=== PATIENT | female | born 1930 | race Caucasian/White ===

== ENCOUNTER 2016-08-29 06:50 | Inpatient (IN) | payer MEDICARE ==
--- NOTE | 2016-08-21 12:06 | HP ---
HISTORY AND PHYSICAL: DATE OF SURGERY: 08/29/16 DATE OF OFFICE VISIT: 08/21/16 SURGEON: Maddison Wells MD (DICTATED BY ANGEL GERMAIN) PROCEDURE: Right total knee arthroplasty. CHIEF COMPLAINT: Right knee pain. HISTORY OF PRESENT ILLNESS: Ms. Cook is an 86-year-old female with complaints of right knee pain secondary to advanced osteoarthritis. She has failed conservative management and has elected to proceed with a right total knee arthroplasty, which is scheduled for 08/29/[address] Wells. PAST MEDICAL HISTORY: 1. AFib. 2. Hypertension. 3. High cholesterol. 4. Mitral valve disorder, known depression, anxiety, melanoma, and vertigo. PAST SURGICAL HISTORY: 1. Hysterectomy. 2. Right knee arthroscopy. 3. Cataract removal. CURRENT MEDICATIONS: 1. Losartan-potassium 25 mg once a day. 2. Lipitor 10 mg q.h.s. 3. Warfarin 5 mg and 7.5 mg. 4. Potassium chloride 20 mEq 1 tab twice weekly. 5. Cinnamon 2000 mg once daily. 6. Fish oil 1200 mg once daily. 7. Vitamin B12 1000 mcg once daily. 8. Vitamin C 500 mg once a day. 9. Vitamin D3 1000 units once a day. 10. Amlodipine besylate 2.5 mg once a day. 11. Flaxseed oil 1000 mg once a day. ALLERGIES: LISINOPRIL. FAMILY HISTORY: Heart disease and lung cancer. SOCIAL HISTORY: She is an 86-year-old female. She lives alone. She does not smoke or use drugs. She uses occasional alcohol. REVIEW OF SYSTEMS: A complete 14-point review of systems was reviewed with the patient and was all negative and noncontributory. PHYSICAL EXAMINATION GENERAL: She is well developed, well nourished. She in no acute distress. VITAL SIGNS: She stands 5 feet 2 inches tall, weighs 170 pounds, her blood pressure is 123/80, her heart rate is 81. HEENT: Normocephalic, atraumatic. NECK: Supple. No palpable lymph nodes. Trachea is midline. PULMONARY: Lungs are clear to auscultation bilaterally. CARDIO: Regular rate and rhythm. Strong S1, S2. ABDOMEN: Soft, nontender, nondistended. NEUROLOGIC: She is alert and oriented x3. Cranial nerves II through XII are intact. MUSCULOSKELETAL: Right lower extremity, the skin is intact. She has some tenderness over the medial lateral joint line of the right knee. There is mild joint effusion. Her lower extremity muscle group strengths are intact at 5/5. She has intact sensation. 2+ dorsalis pedis pulses. She walks with a slightly antalgic-type gait favoring her right leg. ASSESSMENT AND PLAN: Ms. Cook is an 86-year-old female with complaints of right knee pain secondary to advanced osteoarthritis. She has failed conservative management and has elected to proceed with a right total knee arthroplasty, which is scheduled for 08/29/[address] Wells discussed the risks and benefits of the surgery at today's visit and all of her questions were answered. Prescription for Percocet and Colace were sent to her pharmacy for postoperative pain control. She is currently on Coumadin for atrial fibrillation and was instructed by her primary care physician, Dr. Ventura to stop taking this medication 3 days prior to the surgery. She will restart that medicine the day of surgery for DVT prophylaxis. We will have her follow with Dr. Wells 2 weeks after the surgery. ANGEL GERMAIN [id number]/[facility] #: [id number] LAURITA
[~2016-08-29 06:50] MED LIST: Buffered Lidocaine 1% SYRIN* 5 ML/SYR SYRINGE INTRADERM ONE; NS 0.9% 1000 ML* 1,000 ML IV SCH
[2016-08-29] MEDS ORDERED: ceFAZolin 2 GM PREMIX(*) 2 GM/50 ML BAG IVPB ONE (07:23)
[2016-08-29] MEDS ORDERED: Buffered Lidocaine 1% SYRIN* 5 ML/SYR SYRINGE ONE (07:23)
[2016-08-29] MEDS ORDERED: Midazolam* 1 MG/ML 2 ML VIAL (2 MG) ONE ×2 (07:58→13:09)
[2016-08-29] MEDS ORDERED: Famotidine IV* 10 MG/ML 2 ML (20 mg) ONE (07:58)
[2016-08-29] MEDS ORDERED: fentaNYL* 50 MCG/ML 2 ML VIAL (100 MCG VIAL) ONE ×3 (08:50→11:47)
[2016-08-29] MEDS ORDERED: Rocuronium* 10 MG/ML VIAL ONE (09:08)
[2016-08-29] MEDS ORDERED: EPHEDrine (Pressors)* 50 MG/ML VIAL ONE (09:33)
[2016-08-29] MEDS ORDERED: Dexamethasone IV* 4 MG/ML 1 ML (4 MG) ONE ×2 (09:53→13:34)
[2016-08-29] MEDS ORDERED: Lidocaine 2% PF * 5 ML VIAL ONE (09:53)
[2016-08-29] MEDS ORDERED: Propofol* 10 MG/ML 20 ML BTL IV PUSH ONE (09:53)
[2016-08-29] MEDS ORDERED: ROPIVACAINE 5 MG/ML 30 ML BTL (0.5%) ONE (09:54)
[2016-08-29] MEDS ORDERED: PROCHLORPERAZINE INJ 5 MG/ML 2 ML VIAL IV PRN (10:01)
[2016-08-29] MEDS ORDERED: Ondansetron INJ* 2 MG/ML VIAL IV PRN (10:01)
[2016-08-29] MEDS ORDERED: Acetaminophen TAB* 325 MG PO PRN ×2 (10:01→10:27)
[2016-08-29] MEDS ORDERED: HYDROmorphone* 1 MG/ML 1 ML SYR IV PRN (10:01)
[2016-08-29] MEDS ORDERED: Bupivacaine 0.5% SDV PF* 30 ML VIAL ONE ×2 (10:21→12:14)
[2016-08-29] MEDS ORDERED: diPHENhydraMINE IV* 50 MG/ML 1 ml VIAL (BENADRYL) IV PRN (10:32)
[2016-08-29] MEDS ORDERED: Temazepam CAP* 15 MG PO PRN (10:32)
[2016-08-29] MEDS ORDERED: Bisacodyl SUPP* 10 MG SUPP PR PRN (10:32)
[2016-08-29] MEDS: fentaNYL* 50 MCG/ML 2 ML VIAL (100 MCG VIAL) IV PRN ×4 (11:48→12:23)
--- NOTE | 2016-08-29 12:23 | RAD ---
HISTORY: Postop COMPARISONS: May 08, 2016 VIEWS: 2, Frontal and lateral views of the right knee FINDINGS: BONE DENSITY: Normal. BONES: The patient is status post right knee arthroplasty. There is no hardware failure or osteolysis. JOINTS: The patient is status post right knee arthroplasty ALIGNMENT: There is no dislocation. SOFT TISSUES: Unremarkable. OTHER FINDINGS: None. IMPRESSION: STATUS POST RIGHT KNEE ARTHROPLASTY
[2016-08-29] MEDS ORDERED: Morphine PF AMP (0.5MG/ML)* 5 MG/10 ML AMP ONE (12:47)
[2016-08-29] MEDS ORDERED: Dexmedetomidine* 200 MCG/2 ML 2 ML VIAL ONE (13:10)
[2016-08-29] MEDS ORDERED: diPHENhydraMINE IV* 50 MG/ML 1 ml VIAL (BENADRYL) ONE (13:10)
[2016-08-29] MEDS: Ondansetron INJ* 2 MG/ML VIAL IV PRN ×2 (13:19→19:23)
[2016-08-29] MEDS: oxyCODONE/Acetamin 5/325 MG* TAB PO PRN ×2 (13:19→18:01)
[2016-08-29] MEDS: Morphine INJ* 2 MG/ML 1 ML SYRINGE IV PRN ×4 (13:20→22:54)
[2016-08-29] MEDS ORDERED: Ketorolac INJ* 30 MG/ML 1 ML VIAL ONE (13:34)
--- NOTE | 2016-08-29 14:56 | CONS ---
CONSULTATION REPORT: DATE OF CONSULT: 08/29/16 DATE OF ADMISSION: 08/29/16 PRIMARY CARE PROVIDER: Dr. Ventura. REQUESTING PHYSICIAN FOR CONSULTATION: Dr. Wells. MY ATTENDING PHYSICIAN WHILE IN THE HOSPITAL: Dr. Elisabeth Bingham (report being dictated by Vishal Arora NP). REASON FOR MEDICAL CONSULTATION: Medical management of comorbid medical problems. HISTORY OF PRESENT ILLNESS: Mrs. Cook is an 86-year-old female patient. She has a history of atrial fibrillation, hypertension, hyperlipidemia, depression, anxiety, melanoma, vertigo, and mitral regurge, and aortic stenosis. She comes in to the PACU today after an elective right total knee replacement. She had been seen in the outpatient setting with Dr. Wells. She had been having difficulty with right knee pain for some time failing conservative therapy. She opted for right knee replacement which she underwent today. She was evaluated in the PACU. She says that her pain is better controlled now after receiving some fentanyl. She denies having any chest pain or any shortness of breath. She states that she does not feel lightheaded. She denies having any abdominal pain. She denies having any nausea or any vomiting. She does the carry the history of AFib, hypertension, hyperlipidemia and depression, anxiety, vertigo, melanoma and mitral regurge, and aortic stenosis and because of this we were asked to evaluate in consult. PAST MEDICAL HISTORY: Significant for: 1. AFib. 2. Hypertension. 3. Hyperlipidemia. 4. Depression. 5. Anxiety. 6. Melanoma. 7. Vertigo. 8. Mitral resurge. 9. Aortic stenosis. PAST SURGICAL HISTORY: 1. She has had a right knee arthroscopy. 2. Cataract extraction. 3. Hysterectomy. 4. Now she is status post right total knee replacement. ALLERGY TO MEDICATION: Include LISINOPRIL. MEDICATIONS: Home meds according to the preoperative list includes: 1. Lipitor 10 mg daily. 2. Losartan 25 mg daily. 3. Warfarin 5 mg alternating with 7.5 mg every other day. 4. Refresh tears 2 drops both eyes b.i.d. 5. Tylenol 175 mg p.o in the morning as needed. 6. Potassium 20 mEq p.o. daily. 7. Fish oil 1200 mg p.o. daily. 8. Flaxseed oil 1000 p.o. daily. 9. Vitamin B12 1000 mcg daily. 10. Cinnamon 1000 mg p.o. daily. 11. D3 1000 units p.o. daily. 12. Vitamin C 500 mg daily. 13. Amlodipine 2.5 mg daily. FAMILY HISTORY: Her mother had a history of lung cancer. Father history is reviewed and noncontributory. SOCIAL HISTORY: She does not smoke. She does drink, it is very rarely. Surrogate decision maker is her daughter, Sharonda. REVIEW OF SYSTEMS: There is no documented fever. She denied having any significant weight change. There was no double vision. Denies having any ear discharge. No rhinorrhea. No sore throat. No thyroid enlargement. Denies having any chest pain. There is no orthopnea, no nocturnal dyspnea. Review of 14 systems completed was negative. PHYSICAL EXAM: Reveals vital signs, blood pressure 132/67 with a pulse of 76, respirations 16, O2 sat of 100%, temperature 97.2. General: At this time, Ms. Cook is an 86-year-old female patient. She appears to be well nourished, well developed. She is sitting in the postoperative bed. She does not appear to be in any acute distress. HEENT: Head is atraumatic, normocephalic. Eyes, her sclerae, on the right eye, she had what appeared to be, blood in the right sclera. She said she has had this for about a week and had ruptured about a week ago and she has been using drops for this. The left eye was anicteric and not pale. Neck is supple. Throat: Oral mucosa appeared to be dry. No oropharyngeal erythema. Heart: Sounds S1, S2. Regular rate and rhythm. She did have grade 2/3 murmur noted in the aortic listening area. No rubs or gallops. Lungs clear to auscultation bilaterally. No wheezes, rales or rhonchi. Abdomen: Soft, flat and nontender. Bowel sounds present. Extremities : Pulses were 2+ throughout. She can move the upper extremities with 5/5 strength. The right lower extremity in Mehdi bandage, distal CSM checks were intact. Neurologically, she is drowsy, but she awakens. She is alert. She is oriented x3. Tongue is midline. Sleeve Baster are equal. She had no gross focal deficits. Her skin is intact. She has an incision to the right knee, which is covered with an Mehdi dressing and a Hemovac intact. DIAGNOSTIC STUDIES/LAB DATA: Her labs, preoperative WBC is 6.0, RBC of 4.45, hemoglobin of 14.2, hematocrit of 43, platelet count 159. Her INR was 2.98. Sodium is 140, potassium 4.3, chloride 102, bicarb 28, BUN 14, creatinine 0.84. Her glucose was 89. Urine preop showed 3+ leukocyte esterase, 3+ wbc. Microbiology was negative for the urine preoperatively. She did have a preop stress echo which was read as normal stress echo. She did have a preop echo, which showed an EF of 55% to 60%. She had moderate aortic stenosis as well noted. She had a preoperative chest x-ray, which showed cardiomegaly, and there was a preoperative EKG as well, it did show AFib, there were no ST elevations or T-wave inversions noted. Old medical records reviewed. IMPRESSION: Mrs. Cook is an 86-year-old female patient coming into the surgical service today for an elective right total knee. We were asked to evaluate in consult. Recommendation at this point: ' 1. Right total knee replacements. Defer the management to Dr. Wells and her team. 2. Ruptured blood vessel of the right sclera. At this point, we will continue to monitor this. I will continue her eyedrops as prescribed and we will continue to follow. 3. Atrial fibrillation. Continue her anticoagulation and we will monitor. 4. Hypertension. We will hold the valsartan from the first 24 hours postoperatively. We can restart the amlodipine tomorrow and we will follow. 5. Hyperlipidemia. Continue statin therapy. 6. Depression and anxiety. Give supportive care. 7. History of melanoma. Follow with her primary. 8. Vertigo : Nonactive. She will involve the Primary. 9. History of mitral regurge and aortic stenosis can follow with her primary regional sales representative. We will continue to follow while here in the hospital. We will keep an eye on her hydration status. 10. DVTs prophylaxis. We will defer to the primary team. 11. Fluids, electrolytes and nutrition. She can have a regular diet. 12. Code status. Full code. TIME SPENT: Time spent in the consult 60 minutes; greater than half time spent [id number] obtaining my history and physical, other half time spent going over the plan of care with the patient and implementing plan of care. I discussed the plan of care with my attending, Dr. Bingham. She is in agreement. VISHAL ARORA NP CC: Dr. Ventura; Dr. Wells* [id number]/[facility] #: [id number] MTDKyle
[2016-08-29] MEDS ORDERED: HYDROmorphone* 1 MG/ML 1 ML SYR IV SLOW PU PRN (15:48)
[2016-08-29] MEDS ORDERED: Ketorolac INJ* 15 MG/ML 1 ML VIAL IV PUSH PRN (15:49)
[2016-08-29] MEDS ORDERED: Warfarin TAB(*) 6 MG PO ONE (17:00)
[2016-08-29] MEDS ORDERED: Warfarin TAB(*) 4 MG PO ONE (17:00)
[2016-08-29] MEDS: ceFAZolin VIAL(*) 1 GM in NS 0.9% 50 ML* 50 ML IVPB SCH (18:01)
[2016-08-29] MEDS: Ferrous Sulfate TAB* 325 MG PO SCH (20:29)
[2016-08-29] MEDS: Atorvastatin* 10 MG TAB PO SCH (20:29)
[2016-08-29] MEDS: Docusate CAP* 100 MG PO SCH (20:29)
[2016-08-29] MEDS ORDERED: Carboxymethylcellulose Sodium [Refresh Tears] BOTH EYES SCH (21:00)
[2016-08-29] MEDS ORDERED: CARBOXYMETHYLCELLULOSE SODIUM BOTH EYES SCH (21:00)
[2016-08-29] MEDS ORDERED: Enoxaparin(*) 30 MG/0.3 ML SYR SUBCUT SCH (21:00)
[2016-08-30] MEDS: ceFAZolin VIAL(*) 1 GM in NS 0.9% 50 ML* 50 ML IVPB SCH ×2 (01:38→08:32)
[2016-08-30 07:04] LABS: Hematocrit 34 % (35-47); Hemoglobin 11.1 g/dl (12.0-16.0)
[2016-08-30 07:25] LABS: BUN/Creatinine Ratio 25.3 (8-20); Calcium 8.7 mg/dL (8.6-10.3); EGFR African American 79.2 (>60); EGFR Non-African American 61.6 (>60); Potassium 4.3 mmol/L (3.5-5.0)
[2016-08-30] MEDS: oxyCODONE/Acetamin 5/325 MG* TAB PO PRN ×3 (07:55→20:32)
[2016-08-30] MEDS ORDERED: NS 0.9% 50 ML* 50 ML ONE (08:23)
[2016-08-30] MEDS: Docusate CAP* 100 MG PO SCH ×2 (08:28→20:33)
[2016-08-30] MEDS: Potassium Chlor TAB* 20 MEQ TAB.ER PO SCH (08:28)
[2016-08-30] MEDS: Cyanocobalamin TAB* 500 MCG PO SCH (08:28)
[2016-08-30] MEDS: Ascorbic Acid TAB* 500 MG PO SCH (08:28)
[2016-08-30] MEDS: Cholecalciferol TAB* 1000 UNITS PO SCH (08:28)
[2016-08-30] MEDS: Ferrous Sulfate TAB* 325 MG PO SCH ×2 (08:28→20:33)
[2016-08-30] MEDS: Vitamin THERAPEUTIC TAB PO SCH (08:28)
[2016-08-30] MEDS: amLODIPine TAB* 5 MG PO SCH (08:28)
[2016-08-30] MEDS: FATTY ACIDS PO SCH (08:33)
[2016-08-30] MEDS: OMEGA PO SCH (08:33)
[2016-08-30] MEDS ORDERED: Losartan TAB* 25 MG PO SCH (09:00)
[2016-08-30] MEDS ORDERED: Enoxaparin(*) 30 MG/0.3 ML SYR SUBCUT SCH (09:00)
[2016-08-30] MEDS: Carboxymethylcellulos 1% OPTH* 1 DROP AMP BOTH EYES SCH ×2 (09:50→20:33)
[2016-08-30] MEDS: Ondansetron INJ* 2 MG/ML VIAL IV PRN (10:03)
--- NOTE | 2016-08-30 10:18 | PN ---
Progress Note - Progress Note SOAP: Subjective: []Patient seen OOB in chair. Vomited this am after getting up with PT from bed to chair. Continues to feel dizzy this am. She does have a history of vertigo. Pain fairly well managed. Receiving Zofran. Objective: [] Vital Signs Temp 97.8 F 08/30/16 07:32 Pulse 89 08/30/16 07:32 Resp 16 08/30/16 08:00 BP 116/71 08/30/16 07:32 Pulse Ox 94 08/30/16 07:32 Intake & Output 08/29/16 08/30/16 08/30/16 18:59 06:59 18:59 Intake Total 1160 1922 Output Total 30 525 Balance 1130 1397 Weight 166 lb Intake: IV Fluids 1100 1083 LR 1100 1083 IVPB 109 LR 109 Oral 60 730 Output: Silveira 525 Residual 30 Silveira 16 Fr 30 Other: # Bowel Movements 0 Laboratory Results - last 24 hr 08/30/16 08/30/16 08/30/16 06:24 06:24 06:24 Hgb 11.1 L Hct 34 L INR (Anticoag Therapy) 1.10 Sodium 134 Potassium 4.3 Chloride 105 Carbon Dioxide 27 Anion Gap 2 BUN 22 Creatinine 0.87 Est GFR ( Amer) 79.2 Est GFR (Non-Af Amer) 61.6 BUN/Creatinine Ratio 25.3 H Glucose 146 H Calcium 8.7 Right knee dressings are dry and intact Calf NT and soft + DF/PF right ankle Hemovac drain discontinued without difficulty, tip intact Assessment: []s/p right total knee arthroplasty POD #1 Plan: []PT/OT when able to participate, WBAT RLE Coumadin with Lovenox bridge, 8 mg today PMRU vs SNF rehab
[2016-08-30] MEDS ORDERED: Scopolamine 1.5 mg* PATCH TRANSDERM SCH (11:00)
--- NOTE | 2016-08-30 11:39 | OP ---
OPERATIVE REPORT: DATE OF OPERATION: 08/29/16 - inpatient, room #349-02 DATE OF : 28 SURGEON: Maddison Wells MD COMPLAINT EVALUATION SUPERVISOR: ANGEL Patel ANESTHESIOLOGIST: Dr. Souza. ANESTHESIA: General with adductor nerve block. PRE-OP DIAGNOSIS: Severe end-stage arthritis of the right knee joint. POST-OP DIAGNOSIS: Severe end-stage arthritis of the right knee joint. OPERATIVE PROCEDURE: Right total knee arthroplasty. BRIEF HISTORY/INDICATIONS: Ms. Cook is an 86-year-old female with years of right knee pain. She failed conservative treatment including antiinflammatories , pain medications, ambulatory assistive devices, brace wear, physical therapy, as well as intraarticular steroid injection. She elected to undergo right total knee arthroplasty and radiographs confirmed [id number] tibial arthritis. Informed consent was obtained from the patient. She understands the risks of surgery include, but not limited to, bleeding, infection, damage to nearby structures, continued pain, need for further surgery, intraoperative fracture, nerve palsy, hardware failure or loosening, knee stiffness, loss of motion, stroke, heart attack, blood clot, and . She wishes to proceed. ESTIMATED BLOOD LOSS: 200 cc. TOURNIQUET TIME: 45 minutes. COMPLICATIONS: None. SPECIMEN: Bone and cartilage from the right knee joint sent to pathology. HARDWARE USED: This is a cemented Vo and Nephew hardware. Two packages of Simplex bone cement with a femur size 5 high posterior stabilized Legion Narrow femoral component with a tibia size 3 right tibial base plate, 32 mm 3-peg all- poly patella, and an 11-mm posterior stabilized articular insert, size 3-4. INTRAOPERATIVE FINDINGS: Intraoperatively, the patient was noted to have severe end-stage arthritis of the medial patellofemoral compartment with complete loss of cartilage. Osteopenia was noted throughout the procedure. DESCRIPTION OF PROCEDURE: Ms. Cook was identified in the preanesthesia unit. The right lower extremity was marked as the correct operative side. Informed consent was signed and placed in the chart. She was taken to the operating room and placed under general anesthesia with an adductor nerve block. A Silveira catheter was placed. The tourniquet was placed on the right thigh and total tourniquet time for this procedure was 45 minutes. Right lower extremity was prepped and draped in the usual sterile fashion. Preop time-out was made to correctly identify the patient's side and site. Appropriate perioperative antibiotics were given within 1 hour of incision. The tourniquet was inflated and a 14 cm midline incision was made with a 10 blade. This was carried down to the extensor mechanism. A new 10 blade was used to make a standard medial parapatellar arthrotomy. Patella was subluxed laterally. Electrocautery was used to subperiosteally elevate the soft tissue off the superomedial tibia to the mid sagittal plane. Osteophytes were carefully removed. The knee was flexed up. Anterior horn of the lateral meniscus and ACL were sharply released. A drill was used to enter the distal femur. Intramedullary distal femoral cutting block was placed and an oscillating saw was used to make the distal femoral cut. External rotation guide was placed on the distal femur and the distal femur was sized to a size 5. A size 5 multi-cutting jig was pinned on the distal femur. Oscillating saw was used to make the appropriate chamfer cuts. The PCL was completely released and the tibia was subluxed anteriorly. The extramedullary tibial cutting guide was pinned down the proximal tibia. Oscillating saw was used to make an appropriate proximal tibial cut perpendicular to the mechanical axis of the tibia. The belt was carefully removed. The knee was brought out into full extension and the spacer block had excellent fit. Good medial and lateral ligamentous balancing. Good flexion and extension gap balancing. The knee was flexed up. The lamina public health veterinarian was placed both medially and laterally. Any remaining meniscus was carefully removed with electrocautery. Any osteophytes were removed from the posterior condyle using a curved osteotome. A trial size 5 narrow right femur was impacted on to the distal femur. The box for the posterior stabilized implant was prepared using a reamer and a box cut osteotome. Size 3 tibial trial and 11 mm insert trial was placed. The knee was taken through a range of motion and noted to have full extension to 130 degrees of flexion with good patellofemoral tracking. The patella was everted; 9 mm of patellar bone and cartilage were carefully removed using an oscillating saw. The patella was sized to a size 32. The three peg holes were drilled through a size 32 guide. A 32 trial patella was placed and the knee was brought through range of motion. Patellofemoral tracking was satisfactory. All trials were carefully removed. The tibia was subluxed anteriorly and sized to a size 3. Proximal tibia was repaired using a size 3 keel punch. All bony cut surfaces were copiously irrigated with sterile saline and dried. Final implants were cemented into place starting with the tibia followed by the femur and last the patella. An 11 mm insert trial was placed while the knee was brought out to full extension. The tourniquet was turned down at 45 minutes. The knee was copiously irrigated with sterile saline. The excess cement was fully cured. The insert trial was removed. Any excess cement was carefully removed from around the implant. Electrocautery was used to obtain meticulous hemostasis. Final insert chosen was an 11 mm posterior stabilized articular insert size 3-4. This was locked into position on the tibial tray. Stability of the tray was checked and rechecked and noted to be stable. The wound was copiously irrigated with sterile saline. The extensor mechanism was closed using interrupted #1 Vicryls over a medium Hemovac drain. The rest of the incision was closed in a layered fashion using 0 and 2-0 Vicryls. Skin was closed using running 3-0 nylon suture. Sterile Xeroform, 4x4 's, and Webril were used to cover the incision. Mehdi wrap and cold pack were placed over this. The patient's anesthesia was reversed without difficulty. She was taken to the PACU in stable condition. Intended weightbearing will be weightbearing as tolerated. Intended DVT prophylaxis will return to her baseline Coumadin with Lovenox bridge. [id number]/[facility] #: [id number] LAURITA
[2016-08-30] MEDS: Meclizine TAB* 12.5 MG PO PRN ×2 (13:36→22:22)
[2016-08-30] MEDS ORDERED: Ondansetron INJ* 2 MG/ML VIAL IV PRN (16:32)
[2016-08-30] MEDS ORDERED: PROCHLORPERAZINE INJ 5 MG/ML 2 ML VIAL IV PRN (16:33)
[2016-08-30] MEDS ORDERED: Warfarin TAB(*) 4 MG PO ONE (17:00)
--- NOTE | 2016-08-30 17:27 | PN ---
Subjective Date of Service: 08/30/16 Interval History: This is an 86 yo female with h/o afib and HTN who is s/p TKA. Patient has been severely nauseated overnight last night and reported dizziness. She also offers a history of vertigo. She has been able to eat very little, even water makes her more nauseated. She denies CP, SOB, abd pain, diarrhea. Objective Active Medications: Acetaminophen (Tylenol Tab*) 650 mg PO Q4H PRN PRN Reason: PAIN OR TEMPERATURE Amlodipine Besylate (Norvasc Tab*) 2.5 mg PO QAM [facility] Last Admin: 08/30/16 08:28 Dose: 2.5 mg Ascorbic Acid (Vitamin C Tab*) 500 mg PO DAILY [facility] Last Admin: 08/30/16 08:28 Dose: 500 mg Atorvastatin Calcium (Lipitor*) 10 mg PO BEDTIME [facility] Last Admin: 08/29/16 20:29 Dose: 10 mg Bisacodyl (Dulcolax Supp*) [address] DAILY PRN PRN Reason: constipation Carboxymethylcellulose Sodium (Celluvisc 1% Opth*) 2 drop BOTH EYES BID [facility] Last Admin: 08/30/16 09:50 Dose: 2 drop Cholecalciferol (Vitamin D Tab*) 1,000 units PO DAILY [facility] Last Admin: 08/30/16 08:28 Dose: 1,000 units Cyanocobalamin (Vitamin B12 Tab*) 1,000 mcg PO DAILY [facility] Last Admin: 08/30/16 08:28 Dose: 1,000 mcg Diphenhydramine HCl (Benadryl Iv*) 12.5 mg IV Q6H PRN PRN Reason: PRURITIS Docusate Sodium (Colace Cap*) 100 mg PO BID [facility] Last Admin: 08/30/16 08:28 Dose: 100 mg Enoxaparin Sodium (Lovenox(*)) 30 mg SUBCUT 0900 [facility] Last Admin: 08/30/16 08:30 Dose: 30 mg Ferrous Sulfate (Ferrous Sulfate Tab*) 325 mg PO BID [facility] Last Admin: 08/30/16 08:28 Dose: 325 mg Hydromorphone HCl (Dilaudid Iv*) 1 mg IV SLOW PU Q4H PRN PRN Reason: SEVERE PAIN Lactated Ringer's (Lactated Ringers 1000 Ml Bag*) 1,000 mls @ 75 mls/hr IV PER RATE [facility] Last Admin: 08/29/16 13:30 Dose: 75 mls/hr Lactated Ringer's (Lactated Ringers 1000 Ml Bag*) 1,000 mls @ 500 mls/hr IV .BOLUS [facility] Last Admin: 08/30/16 13:33 Dose: 500 mls/hr Ketorolac Tromethamine (Toradol Inj*) 15 mg IV PUSH Q6H PRN PRN Reason: SEVERE PAIN Last Admin: 08/29/16 20:29 Dose: 15 mg Magnesium Hydroxide (Milk Of Magnesia Liq*) 30 ml PO Q6H PRN PRN Reason: constipation Meclizine HCl (Antivert Tab*) 25 mg PO Q8HR PRN PRN Reason: dizziness Last Admin: 08/30/16 13:36 Dose: 25 mg Morphine Sulfate (Morphine Inj (Syringe)*) 2 mg IV Q2H PRN PRN Reason: PAIN Last Admin: 08/29/16 22:54 Dose: 2 mg Multivitamins (Theragran Tab*) 1 tab PO DAILY [facility] Last Admin: 08/30/16 08:28 Dose: 1 tab [place]-3 Fatty Acids ([Fish Oil] 1,200 Mg) 1,200 mg PO DAILY [facility] Last Admin: 08/30/16 08:33 Dose: Not Given Ondansetron HCl (Zofran Inj*) 4 mg IV Q4H PRN PRN Reason: nausea Oxycodone/Acetaminophen (Percocet 5/325 Tab*) 1 tab PO Q4H PRN PRN Reason: PAIN Last Admin: 08/29/16 13:19 Dose: 1 tab Oxycodone/Acetaminophen (Percocet 5/325 Tab*) 2 tab PO Q4H PRN PRN Reason: PAIN Last Admin: 08/30/16 15:59 Dose: 2 tab Pharmacy Profile Note (Coumadin Daily Reminder*) 1 note FOLLOW UP 1700 [facility] Last Admin: 08/29/16 18:11 Dose: 1 note Pharmacy Profile Note (Scopolomine Patch Remove*) 1 note PATCH OFF Q72H [facility] Potassium Chloride (Klor Con Er Tab*) 20 meq PO QAM [facility] Last Admin: 08/30/16 08:28 Dose: Not Given Prochlorperazine Edisylate (Compazine Inj*) 5 mg IV Q6H PRN PRN Reason: NAUSEA/VOMITING Scopolamine (Transderm-Scop 1.5 Mg Patch*) 1 patch TRANSDERM Q72H [facility] Last Admin: 08/30/16 11:09 Dose: 1 patch Temazepam (Restoril Cap*) 15 mg PO BEDTIME PRN PRN Reason: INSOMNIA Vital Signs: Temp Pulse Resp BP Pulse Ox 97.8 F 79 18 122/66 94 08/30/16 15:49 08/30/16 15:49 08/30/16 15:59 08/30/16 15:49 08/30/16 15:49 Appearance: Elderly female who appears mildly ill lying in her hospital bed accompanied by her daughter. Neck: NL Appearance and Movements; NL JVP Respiratory: Symmetrical Chest Expansion and Respiratory Effort, Clear to Auscultation Cardiovascular: - - irregular HR, faint murmur appreciated Abdominal: NL Sounds; No Tenderness; No Distention Extremities: No Edema Skin: No Rash or Ulcers Neurological: Alert and Oriented x 3 Result Diagrams: 08/30/16 06:24 08/30/16 06:24 Assess/Plan/Problems-Billing Assessment: This is an 86 yo female with afib, HTN and h/o vertigo who is s/p TKR. Hospitalist group is co-managing. - Patient Problems (1) Status post total knee replacement Comment: POD #1 Management per ortho (2) Nausea Comment: With dizziness Add meclizine, and prn compazine Cont prn Zofran and scopolamine patch in place If persistent despite above medications, can trial use of benzos (3) Atrial fibrillation Comment: Rate controlled Chronically anticoagulated with Coumadin which has been interrupted for surgery (4) HTN (hypertension) Comment: Normotensive Cont to hold losartan until she is taking nl oral intake (5) Full code status (6) DVT prophylaxis Comment: Lovenox bridging to Coumadin Status and Disposition: Inpatient. Dispo per ortho. Hospitalist group will cont to follow along
[2016-08-30] MEDS: Morphine INJ* 2 MG/ML 1 ML SYRINGE IV PRN ×2 (17:33→22:22)
[2016-08-30] MEDS: Atorvastatin* 10 MG TAB PO SCH (20:33)
[2016-08-31] MEDS: oxyCODONE/Acetamin 5/325 MG* TAB PO PRN ×3 (03:50→18:28)
[2016-08-31 06:26] LABS: Hematocrit 28 % (35-47); Mean Platelet Volume 9 um3 (7.4-10.4)
[2016-08-31] MEDS ORDERED: Warfarin TAB(*) 5 MG PO SCH (09:00)
[2016-08-31] MEDS ORDERED: Warfarin TAB(*) 7.5 MG PO SCH (09:00)
[2016-08-31] MEDS: Magnesium Hydroxide LIQ* 30 ML UDC PO PRN ×2 (09:47→14:41)
[2016-08-31] MEDS: amLODIPine TAB* 5 MG PO SCH (09:47)
[2016-08-31] MEDS: Carboxymethylcellulos 1% OPTH* 1 DROP AMP BOTH EYES SCH ×2 (09:49→21:11)
[2016-08-31] MEDS: Potassium Chlor TAB* 20 MEQ TAB.ER PO SCH (09:49)
[2016-08-31] MEDS: Cyanocobalamin TAB* 500 MCG PO SCH (09:50)
[2016-08-31] MEDS: Docusate CAP* 100 MG PO SCH ×2 (09:50→21:05)
[2016-08-31] MEDS: Cholecalciferol TAB* 1000 UNITS PO SCH (09:50)
[2016-08-31] MEDS: Vitamin THERAPEUTIC TAB PO SCH (09:50)
[2016-08-31] MEDS: Ferrous Sulfate TAB* 325 MG PO SCH ×2 (09:50→21:05)
[2016-08-31] MEDS: Ascorbic Acid TAB* 500 MG PO SCH (09:50)
[2016-08-31] MEDS: FATTY ACIDS PO SCH (10:42)
[2016-08-31] MEDS: OMEGA PO SCH (10:42)
--- NOTE | 2016-08-31 12:29 | PN ---
Progress Note - Progress Note SOAP: Subjective: []Patient seen OOB in chair. Her nausea has improved some with Meclizine and compazine medications given yesterday. No more vomiting. She still feels "wiped out" overall. Pain is fairly significant at times in the right knee. She denies SOB, CP or increase in vertigo/ dizziness. Objective: [] Vital Signs Temp 97.8 F 08/31/16 11:37 Pulse 85 08/31/16 11:37 Resp 16 08/31/16 11:50 BP 126/54 08/31/16 11:37 Pulse Ox 93 08/31/16 11:43 Intake & Output 08/30/16 08/31/16 08/31/16 18:59 06:59 18:59 Intake Total 2023 1382 560 Output Total 175 300 Balance 1848 1082 560 Intake: IV Fluids 1673 882 LR 1673 882 IVPB 110 LR 110 Oral 240 500 560 Output: Urine 0 300 Silveira 75 Emesis 100 Other: Estimated Void Large Small # Bowel Movements 0 # Voids 1 1 Laboratory Results - last 24 hr 08/30/16 08/31/16 08/31/16 06:24 06:01 06:01 Hgb 9.0 L Hct 28 L Plt Count 105 L MPV 9 INR (Anticoag Therapy) 1.97 H Hemoglobin A1c 5.5 Right knee dressings were changed today. Wound is healing well calf is non tender and with some edema +DF/PF right ankle sensation intact distally Assessment: []s/p Right total knee arthroplasty POD #2 Vertigo- improving Plan: []PT/OT WBAT RLE Coumadin- 2mg today per Dr. Wells then return to her regular dosage of 5 mg Friday 09/01, 7.5mg 09/02. PMRU vs SNF rehab tomorrow
--- NOTE | 2016-08-31 14:35 | PN ---
Subjective Date of Service: 08/31/16 Interval History: Patient reports that her dizziness and nausea have improved. Tolerating a regular diet today. Pain control is good today. No CP or SOB. No palpitations. Objective Active Medications: Acetaminophen (Tylenol Tab*) 650 mg PO Q4H PRN PRN Reason: PAIN OR TEMPERATURE Amlodipine Besylate (Norvasc Tab*) 2.5 mg PO QAM [facility] Last Admin: 08/31/16 09:47 Dose: 2.5 mg Ascorbic Acid (Vitamin C Tab*) 500 mg PO DAILY [facility] Last Admin: 08/31/16 09:50 Dose: 500 mg Atorvastatin Calcium (Lipitor*) 10 mg PO BEDTIME [facility] Last Admin: 08/30/16 20:33 Dose: 10 mg Bisacodyl (Dulcolax Supp*) 10 mg VT DAILY PRN PRN Reason: constipation Carboxymethylcellulose Sodium (Celluvisc 1% Opth*) 2 drop BOTH EYES BID [facility] Last Admin: 08/31/16 09:49 Dose: 2 drop Cholecalciferol (Vitamin D Tab*) 1,000 units PO DAILY [facility] Last Admin: 08/31/16 09:50 Dose: 1,000 units Cyanocobalamin (Vitamin B12 Tab*) 1,000 mcg PO DAILY [facility] Last Admin: 08/31/16 09:50 Dose: 1,000 mcg Diphenhydramine HCl (Benadryl Iv*) 12.5 mg IV Q6H PRN PRN Reason: PRURITIS Docusate Sodium (Colace Cap*) 100 mg PO BID [facility] Last Admin: 08/31/16 09:50 Dose: 100 mg Ferrous Sulfate (Ferrous Sulfate Tab*) 325 mg PO BID [facility] Last Admin: 08/31/16 09:50 Dose: 325 mg Hydromorphone HCl (Dilaudid Iv*) 1 mg IV SLOW PU Q4H PRN PRN Reason: SEVERE PAIN Lactated Ringer's (Lactated Ringers 1000 Ml Bag*) 1,000 mls @ 75 mls/hr IV PER RATE [facility] Last Admin: 08/30/16 18:00 Dose: 75 mls/hr Lactated Ringer's (Lactated Ringers 1000 Ml Bag*) 1,000 mls @ 500 mls/hr IV .BOLUS [facility] Last Admin: 08/30/16 13:33 Dose: 500 mls/hr Ketorolac Tromethamine (Toradol Inj*) 15 mg IV PUSH Q6H PRN PRN Reason: SEVERE PAIN Last Admin: 08/29/16 20:29 Dose: 15 mg Magnesium Hydroxide (Milk Of Magnlizzie Liq*) 30 ml PO Q6H PRN PRN Reason: constipation Last Admin: 08/31/16 09:47 Dose: 30 ml Meclizine HCl (Antivert Tab*) 25 mg PO Q8HR PRN PRN Reason: dizziness Last Admin: 08/30/16 22:22 Dose: 25 mg Morphine Sulfate (Morphine Inj (Syringe)*) 2 mg IV Q2H PRN PRN Reason: PAIN Last Admin: 08/30/16 22:22 Dose: 2 mg Multivitamins (Theragran Tab*) 1 tab PO DAILY [facility] Last Admin: 08/31/16 09:50 Dose: 1 tab Pto:[place]-3 Fatty Acids [Fish Oil] 1, 200 Mg 1,200 mg PO DAILY [facility] Last Admin: 08/31/16 10:42 Dose: 1,200 mg Ondansetron HCl (Zofran Inj*) 4 mg IV Q4H PRN PRN Reason: nausea Oxycodone/Acetaminophen (Percocet 5/325 Tab*) 1 tab PO Q4H PRN PRN Reason: PAIN Last Admin: 08/29/16 13:19 Dose: 1 tab Oxycodone/Acetaminophen (Percocet 5/325 Tab*) 2 tab PO Q4H PRN PRN Reason: PAIN Last Admin: 08/31/16 09:50 Dose: 2 tab Pharmacy Profile Note (Coumadin Daily Reminder*) 1 note FOLLOW UP 1700 [facility] Last Admin: 08/30/16 17:36 Dose: 1 note Pharmacy Profile Note (Scopolomine Patch Remove*) 1 note PATCH OFF Q72H [facility] Potassium Chloride (Klor Con Er Tab*) 20 meq PO QAM [facility] Last Admin: 08/31/16 09:49 Dose: Not Given Prochlorperazine Edisylate (Compazine Inj*) 5 mg IV Q6H PRN PRN Reason: NAUSEA/VOMITING Scopolamine (Transderm-Scop 1.5 Mg Patch*) 1 patch TRANSDERM Q72H [facility] Last Admin: 08/30/16 11:09 Dose: 1 patch Temazepam (Restoril Cap*) 15 mg PO BEDTIME PRN PRN Reason: INSOMNIA Warfarin Sodium (Coumadin Tab(*)) 2 mg PO ONCE@1700 ONE PRN Reason: Protocol Stop: 08/31/16 17:01 Vital Signs: Temp Pulse Resp BP Pulse Ox 97.8 F 85 16 126/54 93 08/31/16 11:37 08/31/16 11:37 08/31/16 11:50 08/31/16 11:37 08/31/16 11:43 Appearance: Well appearing elderly female in NAD Respiratory: Symmetrical Chest Expansion and Respiratory Effort, Clear to Auscultation Cardiovascular: NL Sounds; No Murmurs; No JVD, RRR Abdominal: NL Sounds; No Tenderness; No Distention Extremities: No Edema, - - R knee in clean dressing Skin: No Rash or Ulcers Neurological: Alert and Oriented x 3 Result Diagrams: 08/31/16 06:01 08/30/16 06:24 Assess/Plan/Problems-Billing Assessment: This is an 86 yo female with afib, HTN and h/o vertigo who is s/p TKR. Hospitalist group is co-managing. - Patient Problems (1) Status post total knee replacement Comment: POD #2 Management per ortho (2) Postoperative anemia Comment: Hgb dropped from 11 to 9 g/dl today She is asx with this No indication for transfusion, cont to monitor daily H&H (3) Nausea Comment: Resolved (4) Atrial fibrillation Comment: Rate controlled Chronically anticoagulated with Coumadin which has been interrupted for surgery (5) HTN (hypertension) Comment: Normotensive Cont to hold losartan until she is taking nl oral intake (6) Full code status (7) DVT prophylaxis Comment: Lovenox bridging to Coumadin Status and Disposition: Inpatient. Dispo per ortho. Hospitalist group will cont to follow along
[2016-08-31] MEDS ORDERED: Warfarin TAB(*) 2 MG PO ONE (17:00)
[2016-08-31] MEDS: Atorvastatin* 10 MG TAB PO SCH (21:06)
[2016-09-01] MEDS: oxyCODONE/Acetamin 5/325 MG* TAB PO PRN ×2 (00:49→07:25)
[2016-09-01 06:23] LABS: Hematocrit 27 % (35-47); Hemoglobin 9.1 g/dl (12.0-16.0)
[2016-09-01 08:45] VITALS: BP 114/74
[2016-09-01] MEDS: Ascorbic Acid TAB* 500 MG PO SCH (09:51)
[2016-09-01] MEDS: OMEGA PO SCH (09:51)
[2016-09-01] MEDS: Ferrous Sulfate TAB* 325 MG PO SCH (09:51)
[2016-09-01] MEDS: Magnesium Hydroxide LIQ* 30 ML UDC PO PRN (09:51)
[2016-09-01] MEDS: Cholecalciferol TAB* 1000 UNITS PO SCH (09:51)
[2016-09-01] MEDS: Vitamin THERAPEUTIC TAB PO SCH (09:51)
[2016-09-01] MEDS: Carboxymethylcellulos 1% OPTH* 1 DROP AMP BOTH EYES SCH (09:51)
[2016-09-01] MEDS: amLODIPine TAB* 5 MG PO SCH (09:51)
[2016-09-01] MEDS: FATTY ACIDS PO SCH (09:51)
[2016-09-01] MEDS: Docusate CAP* 100 MG PO SCH (09:51)
[2016-09-01] MEDS: Potassium Chlor TAB* 20 MEQ TAB.ER PO SCH (09:51)
[2016-09-01] MEDS: Cyanocobalamin TAB* 500 MCG PO SCH (09:51)
--- NOTE | 2016-09-01 10:39 | PN ---
Progress Note - Progress Note SOAP: Subjective: 86 y/o female s/p RIGHT TKA by DR. Wells. Patient c/o nausea, scopamine patch removed. pain well controlled, ate breakfast. VSS afebrile Objective: General- Well appearing, NAD AO MSK- Incision c/d/i, non-tender, minimal swelling, sutures intact, dressed with new dressing, neg homans sign b/l, no edema b/l LEs. + DF/ PF. Vital Signs Temp 98.3 F 09/01/16 07:25 Pulse 75 09/01/16 07:25 Resp 18 09/01/16 09:25 BP 114/74 09/01/16 07:25 Pulse Ox 94 09/01/16 07:25 Intake & Output 08/31/16 09/01/16 09/01/16 18:59 06:59 18:59 Intake Total 850 580 140 Output Total 550 1650 500 Balance 300 -1070 -360 Intake: Oral 850 580 140 Output: Urine 550 1650 500 Other: Estimated Void Small # Voids 1 Laboratory Results - last 24 hr 09/01/16 09/01/16 06:11 06:11 Hgb 9.1 L Hct 27 L INR (Anticoag Therapy) 2.35 H Assessment: 86 y/o female s/p RIGHT TKA by DR. Wells. Plan: - DVT prophylaxis- Coumadin as pre-op. - D/C to PMRU today - heel booties for ? pressure ulcer - Continue pain regimen Active Medications Generic Name Dose Route Start Last Admin Trade Name Freq PRN Reason Stop Dose Admin Acetaminophen 650 mg 08/29/16 10:27 Tylenol Tab* PO Q4H PRN PAIN OR TEMPERATURE Amlodipine Besylate 2.5 mg 08/30/16 09:00 09/01/16 09:51 Norvasc Tab* PO 2.5 mg QAM [facility] Administration Ascorbic Acid 500 mg 08/30/16 09:00 09/01/16 09:51 Vitamin C Tab* PO 500 mg DAILY [facility] Administration Atorvastatin Calcium 10 mg 08/29/16 21:00 08/31/16 21:06 Lipitor* PO 10 mg BEDTIME [facility] Administration Bisacodyl 10 mg 08/29/16 10:32 Dulcolax Supp* CT DAILY PRN constipation Carboxymethylcellulose Sodium 2 drop 08/30/16 09:00 09/01/16 09:51 Celluvisc 1% Opth* BOTH EYES 2 drop BID [facility] Administration Cholecalciferol 1,000 units 08/30/16 09:00 09/01/16 09:51 Vitamin D Tab* PO 1,000 units DAILY [facility] Administration Cyanocobalamin 1,000 mcg 08/30/16 09:00 09/01/16 09:51 Vitamin B12 Tab* PO 1,000 mcg DAILY [facility] Administration Diphenhydramine HCl 12.5 mg 08/29/16 10:32 Benadryl Iv* IV Q6H PRN PRURITIS Docusate Sodium 100 mg 08/29/16 21:00 09/01/16 09:51 Colace Cap* PO 100 mg BID [facility] Administration Ferrous Sulfate 325 mg 08/29/16 21:00 09/01/16 09:51 Ferrous Sulfate Tab* PO 325 mg BID [facility] Administration Hydromorphone HCl 1 mg 08/29/16 15:48 Dilaudid Iv* IV SLOW PU Q4H PRN SEVERE PAIN Lactated Ringer's 1,000 mls @ 75 mls/hr 08/29/16 11:00 08/30/16 18:00 Lactated Ringers 1000 Ml Bag* IV 75 mls/hr PER RATE [facility] Administration Lactated Ringer's 1,000 mls @ 500 mls/hr 08/30/16 14:00 08/30/16 13:33 Lactated Ringers 1000 Ml Bag* IV 500 mls/hr .BOLUS [facility] Administration Ketorolac Tromethamine 15 mg 08/29/16 15:49 08/29/16 20:29 Toradol Inj* IV PUSH 15 mg Q6H PRN Administration SEVERE PAIN Magnesium Hydroxide 30 ml 08/29/16 10:32 09/01/16 09:51 Milk Of Magnesia Liq* PO 30 ml Q6H PRN Administration constipation Meclizine HCl 25 mg 08/30/16 13:20 08/30/16 22:22 Antivert Tab* PO 25 mg Q8HR PRN Administration dizziness Morphine Sulfate 2 mg 08/29/16 10:32 08/30/16 22:22 Morphine Inj (Syringe)* IV 2 mg Q2H PRN Administration PAIN Multivitamins 1 tab 08/30/16 09:00 09/01/16 09:51 Theragran Tab* PO 1 tab DAILY [facility] Administration Pto:[place]-3 Fatty 1,200 mg 08/30/16 09:00 09/01/16 09:51 Acids [Fish Oil] 1, PO 1,200 mg 200 Mg DAILY [facility] Administration Ondansetron HCl 4 mg 08/30/16 16:32 08/31/16 17:55 Zofran Inj* IV 4 mg Q4H PRN Administration nausea Oxycodone/Acetaminophen 1 tab 08/29/16 10:32 09/01/16 00:49 Percocet 5/325 Tab* PO 1 tab Q4H PRN Administration PAIN Oxycodone/Acetaminophen 2 tab 08/29/16 10:32 09/01/16 07:25 Percocet 5/325 Tab* PO 2 tab Q4H PRN Administration PAIN Pharmacy Profile Note 1 note 08/29/16 17:00 08/31/16 16:43 Coumadin Daily Reminder* FOLLOW UP 1 note 1700 [facility] Administration Pharmacy Profile Note 1 note 09/01/16 11:00 Scopolomine Patch Remove* PATCH OFF .AFTER 72 HOURS [facility] Potassium Chloride 20 meq 08/30/16 09:00 09/01/16 09:51 Klor Con Er Tab* PO 20 meq QAM [facility] Administration Prochlorperazine Edisylate 5 mg 08/30/16 16:33 Compazine Inj* IV Q6H PRN NAUSEA/VOMITING Scopolamine 1 patch 09/01/16 11:00 09/01/16 10:17 Transderm-Scop 1.5 Mg Patch* TRANSDERM 1 patch Q72H [facility] Administration Temazepam 15 mg 08/29/16 10:32 Restoril Cap* PO BEDTIME PRN INSOMNIA
[2016-09-01] MEDS ORDERED: Scopolomine PATCH Remove* 1 NOTE MISC PATCH OFF SCH (11:00)
[2016-09-01] MEDS ORDERED: Scopolamine 1.5 mg* PATCH TRANSDERM SCH (11:00)
--- NOTE | 2016-09-01 16:03 | PN ---
Hospitalist Progress Note Patient was discharged to [facility] prior to exam by myself. Reviewed nursing notes , vital signs and labs. All appear WNL. No acute medical concerns during hospital stay. Resume home medications. Vital Signs: Temp Pulse Resp BP Pulse Ox 98.3 F 75 18 114/74 94 09/01/16 07:25 09/01/16 07:25 09/01/16 09:25 09/01/16 07:25 09/01/16 07:25
--- NOTE | 2016-09-01 23:52 | DS ---
DISCHARGE SUMMARY: DATE OF ADMISSION: 08/29/16 DATE OF DISCHARGE: 09/01/16 CHIEF COMPLAINT: 1. Right knee pain. 2. History of atrial fibrillation. 3. Hypertension. 4. Elevated cholesterol. 5. Mitral valve disorder. DISCHARGE DIAGNOSES: 1. Status post right total knee arthroplasty. 2. History of atrial fibrillation. 3. Hypertension. 4. Elevated cholesterol. 5. Mitral valve disorder. PROCEDURE: Right total knee arthroplasty. CONSULTATIONS: 1. Physical Therapy. 2. Occupational Therapy. 3. Medicine consult. 4. PMRU. BRIEF HISTORY: Ms. 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 Maddison Wells. HOSPITAL COURSE: Ms. Cook was admitted to [facility] on 08/29/16, where she underwent a right total knee arthroplasty. Postoperatively, she recovered on the surgical short stay unit. On postoperative day 2, her Silveira was removed and she was voiding on her own without difficulty. Sh rhys was advanced to a regular diet and her pain was controlled with p.o. Percocet. She was restarted on her home medications. She required a scopolamine patch due to increased nausea and vomiting post operatively. Her labs and vital signs remained stable. She is able to weight bear as tolerated. O n the right lower extremity, she advanced appropriately with physical therapy and occupational thera py. Her DVT prophylaxis was managed with Lovenox and Coumadin until she reached the therapeutic INR . By postoperative day 3, she was orthopedically and medically stable for discharge to [facility]. PHYSICAL EXAMINATION: General: Well appearing. No acute distress, alert and oriented. Sitting in chair comfortably. Vital Signs: On date of discharge, temperature 98.3, pulse 75, respirations 18 , blood pressure 114/74, pulse ox is 94% on room air. Incision on the right knee is clean, dry, int act. Nontender, minimal swelling. Suture is intact. Dressed with a new dressing. Negative Homans sign bilaterally. No edema in bilateral lower extremities. Positive dorsiflexion and plantarflexi on bilaterally. Sensation grossly intact to bilateral lower extremities. LABORATORY DATA: On the date of discharge, H and H of 9.1 and 27 with an INR of 2.35. Radiographs: Postoperative knee films demonstrate right knee arthroplasty in proper position. DISCHARGE MEDICATIONS: 1. Vitamin C 500 mg p.o. daily. 2. Lipitor 10 mg p.o. q.h.s. 3. Refresh Tears 1 drop bilateral eyes b.i.d. 4. Vitamin D3 supplementation 1000 International Units p.o. daily. 5. Vitamin B12 1000 mcg p.o. daily. 6. [place]-3 fish oil 1200 mg p.o. daily. 7. Scopolamine patch 1 patch transdermally q.72 hours. 8. Norvasc 2.5 mg p.o. q. a.m. 9. Percocet 5/325 one to two tablets every 4 hours as needed for pain. 10. Colace 100 mg p.o. b.i.d. 11. Ferrous sulfate supplementation 325 mg p.o. b.i.d. 12. Losartan potassium 25 mg p.o. q.a.m. 13. Coumadin 5 mg to 7.5 mg alternating based on INR levels. CONDITION ON DISCHARGE: Stable. DISCHARGE INSTRUCTIONS: Ms. Cook is a pleasant 86-year-old female, postoperative day 3, status p ost right total knee arthroplasty, which was uncomplicated. She is orthopedically and medically sta ble for discharge to [facility]. Her labs and vital signs are stable. She will restart her home medicatio ns. She will take 5 mg of Coumadin on 09/01/16, 09/02/16 and 09/03/16 with a repeat INR draw on 08/16 or as prescribed by [facility]. She will continue to take Percocet for pain control and Colace 2 ti mes a day for constipation. She will follow up with Dr. Wells in approximately 10 to 14 days for in cision check. She was instructed to go to the ER with chest pain and shortness of breath, and to ca ll the office with fever, increasing pain or redness. ANGEL AKHTAR [id number]/[facility] #: [id number]
[2016-09-02] MEDS ORDERED: Scopolomine PATCH Remove* 1 NOTE MISC PATCH OFF SCH (11:00)
== END 2016-09-01 10:35 | DRG 470 ==
LOC: AA 06:50 → SSU 12:48
PROVIDERS: ADMIT Orthopaedic Surgery Adult Reconstructive Orthopaedic Surgery; ATTEND Orthopaedic Surgery Adult Reconstructive Orthopaedic Surgery
PROC: 0SRC0J9 Replacement of Right Knee Joint with Synthetic Substitute, Cemented, Open Approach (ICD-10-PCS; principal; 2016-08-29 08:15)
DX: M17.11 Unilateral primary osteoarthritis, right knee (principal); I27.2 Other secondary pulmonary hypertension; I48.2 Chronic atrial fibrillation; I10 Essential (primary) hypertension; E78.00 Pure hypercholesterolemia, unspecified; R11.2 Nausea with vomiting, unspecified; F32.9 Major depressive disorder, single episode, unspecified; F41.9 Anxiety disorder, unspecified; D64.9 Anemia, unspecified; R42 Dizziness and giddiness; I08.0 Rheumatic disorders of both mitral and aortic valves; H57.8 Other specified disorders of eye and adnexa; M85.861 Other specified disorders of bone density and structure, right lower leg; Z88.8 Allergy status to other drugs, medicaments and biological substances; M25.761 Osteophyte, right knee; Z85.820 Personal history of malignant melanoma of skin; Z98.49 Cataract extraction status, unspecified eye; Z90.710 Acquired absence of both cervix and uterus; Z80.1 Family history of malignant neoplasm of trachea, bronchus and lung; Z82.49 Family history of ischemic heart disease and other diseases of the circulatory system
CPT/HCPCS: 36415; 80048; 83036; 85014; 85018; 85049; 85610; 88305; 88311; A9270-GY; J0690; J1100; J1200; J1650; J1885; J2250; J2270; J2405; J2704; J2795; J3010

== ENCOUNTER 2016-09-01 09:20 | Inpatient (IN) | payer MEDICARE ==
[2016-09-01] MEDS ORDERED: Al Hydrox/Mg Hydrox/Simet LIQ* 30 ML UDC PO PRN (10:56)
[2016-09-01] MEDS ORDERED: Senna TAB PO PRN (10:56)
[2016-09-01] MEDS ORDERED: Bisacodyl SUPP* 10 MG SUPP PR PRN (10:56)
[2016-09-01] MEDS ORDERED: Magnesium Hydroxide LIQ* 30 ML UDC PO PRN (10:56)
[2016-09-01] MEDS ORDERED: Meclizine TAB* 12.5 MG PO PRN (11:14)
[2016-09-01] MEDS ORDERED: Warfarin TAB(*) 5 MG PO SCH (12:00)
[2016-09-01] MEDS: Scopolamine 1.5 mg* PATCH TRANSDERM SCH (12:10)
--- NOTE | 2016-09-01 12:57 | PMRUTEAM ---
PMRU: Goals Current Status: Nursing: Current Status Skin Deviations [Right Knee] Incision Physical Therapy: Current Status Bed Mobility Assistance MIN A Transfer Moblility Assistance MIN A Ambulation Assistance CGA Ambulation Assistive Devices Rolling Walker 45 Stairs Assistance NOT TESTED Stairs Recommended Devices Two Rails Number of Stairs 2 OCCUPATIONAL THERAPY CURRENT STATUS: UPPER BODY DRESSING INDEPENDENT, LOWER BODY DRESSING MOD A. FUNCTIONAL TRANSFER TOILETING MIN A. CGA TOILETING. Goals: Physical Therapy: Initial Goals Bed Mobility Assistance Independent Transfer Mobility Assistance Independent Transfer/Bed Mobility Rolling Walker Recommended Devices Ambulation Independent Ambulation Recommended Devices Rolling Walker Ambulation Distance 150 Stairs Assistance Independent Stair Recommended Devices Two Rails Number of Stairs 3 Home Exercise Program Independent Assistance OCCUPATIONAL THERAPY GOALS: modified independent dressing, bathing, toileting, IADLs with adaptive equipment. Care Plan: Care Plan Mobility- Improve/Maintain Start: 09/01/16 11:45 Freq: DAILY Status: Active Target: Activity Type Activity Date Activity User E-Sign Co-Sign Detail Recorded Client Recorded Date Recorded By Document 09/01/16 11:45 [id number] 09/01/16 11:46 [id number] 09/01/16 11:45 PMRU Outcome: Mobility Physical Therapy Evaluation and Yes Treatment Activity OOB with Assistance Yes WBAT Yes Device Yes Assistance Yes Patient to be seen 5x/wk for 60-120 min/ Therex day for: Mobility Training Gait Training Balance Other Therapy Comment ROM Outcome/Goals Maintain/ Achieve Baseline Mobility Status Improve Mobility Status Demonstrates Proper Use of Assistive Devices Free from Complications of Immobility Bed Mobility Yes: Independent Transfers Yes: Modified independent with RW Gait x ft Yes: Modified independent 150 ' with RW Up/Down Stairs Yes: Independent 3 steps 2 rails With HEP Yes: Independent Goal Comment R knee flexion 0-90 Medicine Note: Length of Stay: [11 days] Anticipated Discharge Destination: home Tentative Discharge Date: [09/12/16] Discharged to: [home]
[2016-09-01] MEDS: oxyCODONE/Acetamin 5/325 MG* TAB PO PRN ×2 (14:44→20:56)
[2016-09-01] MEDS: Warfarin TAB(*) 5 MG PO SCH (16:26)
[2016-09-01] MEDS: Atorvastatin* 10 MG TAB PO SCH (16:26)
[2016-09-01] MEDS: Docusate CAP* 100 MG PO SCH (20:55)
[2016-09-01] MEDS: Ferrous Sulfate TAB* 325 MG PO SCH (20:55)
[2016-09-01] MEDS: Carboxymethylcellulos 1% OPTH* 1 DROP AMP BOTH EYES SCH (20:57)
--- NOTE | 2016-09-01 21:10 | HP ---
CC: Dr. Ventura; Dr. Wells REHABILITATION ADMISSION: DATE OF ADMISSION: 09/01/16 PRIMARY CARE PROVIDER: Dr. Ventura. ORTHOPEDIC SURGEON: Dr. Wells. REASON FOR ADMISSION: Right total knee replacement secondary to osteoarthritis. HISTORY OF PRESENT ILLNESS: This is an 86-year-old woman who was admitted on under Dr. Wells's service for elective right total knee replacement secondary to osteoarthritis which had failed conservative management. Postoperatively, she was given weightbearing as tolerated restrictions to the right lower extremity. For DVT prophylaxis, initially she received Lovenox and Coumadin. As her INR bumped up quite quickly, the Lovenox was discontinued and today she is restarting her home regimen of Coumadin that she is on for chronic atrial fibrillation. Postoperatively, she had significant vomiting and dizziness on 08/30/16. She was given meclizine p.r.n., Zofran and started on a scopolamine patch. This seemed to help. She is still using the scopolamine patch and Zofran on an as needed basis, as well as meclizine. In the evening, she has been noted to have some hypoxia with an O2 sat down to 78% on room air. She has responded to oxygen supplementation nicely. She has had acute postoperative anemia but has not required transfusion. Today her hemoglobin is 9.1 and hematocrit 27. She has had some mild hyperglycemia on routine labs, but hemoglobin A1c was normal at 5.5. She was noted to be groggy yesterday morning but seems to have rebounded. It is felt this is probably secondary to pain medications. The patient herself is aware that her mind is not as clear as it normally is. She has not been impulsive or dangerous in any way. Prior to admission, she was independent with mobility and all self-care. With physical therapy, she has required a moderate amount of assistance for bed mobility, transfers with mod assist x2 and ambulated with contact guard to min assist x2 up to 80 feet with a rolling walker. With occupational therapy, she has required 2 assist for lower body dressing and mod assist x2 for functional transfers. PAST MEDICAL HISTORY: 1. Chronic atrial fibrillation. 2. Hypertension. 3. Hyperlipidemia. 4. Depression. 5. Anxiety. 6. History of melanoma. 7. History of vertigo. 8. Mitral regurgitation. 9. Aortic stenosis. 10. Status post cataract surgery. 11. Status post hysterectomy. 12. Right scleral hemorrhage preoperatively present upon admission which is improving. MEDICATIONS: 1. Lipitor 10 mg every day. 2. Losartan 25 mg every day, has been on hold since admission. 3. Warfarin 5 mg alternating with 7.5 mg, it is her home regimen which she will be starting today. 4. Refresh Tears are replaced by celluvisc. 5. Tylenol 650 mg q.4 hours p.r.n. 6. Potassium chloride 20 mEq every day. 7. Fish oil 1200 mg every day. 8. Vitamin B12 1000 mg every day. 9. Vitamin D 1000 units every day. 10. Vitamin C 500 mg every day. 11. Amlodipine 2.5 mg every day. 12. Dulcolax p.r.n. 13. Celluvisc 1% ophthalmic solution 2 drops both eyes b.i.d. 14. Colace 100 mg b.i.d. 15. Ferrous sulfate 325 mg b.i.d. 16. Milk of magnesia p.r.n. 17. Meclizine 25 mg q.8 hours p.r.n. 18. Multivitamin every day. 19. Zofran 4 mg q.4 hours p.r.n. 20. Percocet 1 to 2 tablets q.4 hours p.r.n. pain. 21. Scopolamine patch q.72 hours. ALLERGIES: LISINOPRIL. FAMILY HISTORY: Mother, lung cancer. SOCIAL HISTORY: She lives alone in [place] in a one-level home with 2 steps to enter. No smoking. Rare alcohol. She has 4 grown children (3 daughters and 1 son). Her daughter Sharonda lives locally and is her healthcare proxy in case she cannot make decisions for herself. Sharonda's phone numbers are [phone] and . 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 REVIEW OF SYSTEMS: See history of present illness and past medical history. The remainder of the review is complete, no other significant findings. PHYSICAL EXAMINATION GENERAL: Well developed, well nourished, appearing younger than stated age. MENTAL STATUS: No acute distress. Alert and oriented x3 except that she did not know the number day. She thought it was September 07 as opposed to September 01. 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 VITAL SIGNS: Temperature 98.1, pulse 85, respirations 18, oxygen saturation 94 % on room air, blood pressure 120/65. HEENT: Normocephalic, atraumatic. Oropharynx clear. Moist mucous membranes. Her right eye has scleral icterus at this time, probably from old blood from the prior hemorrhage. NECK: Supple. No lymphadenopathy. She has bilateral hearing aids. LUNGS: Clear to auscultation bilaterally. HEART: Irregularly irregular. ABDOMEN: Active bowel sounds. Soft, nontender, nondistended. EXTREMITIES: No clubbing, cyanosis, or edema. Her right calf is a little bit swollen compared to the left, which is typical postoperatively. There is no calf pain. Negative Homans. Dressing intact, right knee. NEUROLOGIC: Cranial nerves II through XII intact. Upper and lower extremity motor, 5/5 bilaterally with normal sensation except for limited motor testing at the right hip and knee secondary to her knee replacement. LABORATORY DATA: Laboratories today; hemoglobin 9.1, hematocrit 27. INR 2.35. IMPRESSION: An 86-year-old woman status post right total knee replacement for osteoarthritis. She will be admitted to the [facility] so that she can return to independent living. PLAN: 1. Status post total knee replacement on the right. Follow up with Dr. Wells postoperatively. Continue weightbearing as tolerated precautions. Percocet as needed for pain. We are going to have to be careful about not over treating with pain medications as it may be impacting her cognition. 2. Postoperative hypoxia. Continue oxygen as needed and wean off as tolerated. 3. Chronic atrial fibrillation. Continue on her home dose of Coumadin and monitor the INR every Sunday, Sunday, Sunday and over the next 2 days. 4. DVT prophylaxis. Once again, she is on Coumadin. She is currently anticoagulated. Follow the INR. 5. Acute postoperative anemia. Followup CBC tomorrow and weekly. Continue with ferrous sulfate supplement. 6. Postoperative nausea and vomiting. Continue with scopolamine patch for now. Zofran p.r.n. and meclizine p.r.n. 7. Hypertension. Her losartan is still on hold. Continue with amlodipine and monitor her blood pressure. 8. Impaired mobility. She will be seen by Physical Therapy for bed mobility, transfer training, gait and stair training using a rolling walker 9. Impaired self-care. She will be seen by Occupational Therapy for ADL training and equipment evaluation. She will also need to do some IADL training before heading to home. 10. Advanced directives. This was discussed with the patient and she desires to not be resuscitated. In the event that she cannot make decisions for herself , her daughter Sharonda is her healthcare proxy. The MOLST was completed. 11. Estimated length of stay: 2 weeks, then return to home. She will be discussed at interdisciplinary plan of care meaning today. [id number]/[id number] #: [id number] MTDD
[2016-09-02] MEDS: oxyCODONE/Acetamin 5/325 MG* TAB PO PRN ×7 (03:05→23:12)
[2016-09-02] MEDS: FATTY ACIDS PO SCH (08:10)
[2016-09-02] MEDS: OMEGA PO SCH (08:10)
[2016-09-02] MEDS: Ferrous Sulfate TAB* 325 MG PO SCH ×2 (08:10→21:24)
[2016-09-02] MEDS: Multivitamins/Minerals TAB PO SCH (08:10)
[2016-09-02] MEDS: amLODIPine TAB* 5 MG PO SCH (08:10)
[2016-09-02] MEDS: Cholecalciferol TAB* 1000 UNITS PO SCH (08:11)
[2016-09-02] MEDS: Cyanocobalamin TAB* 500 MCG PO SCH (08:11)
[2016-09-02] MEDS: Ascorbic Acid TAB* 500 MG PO SCH (08:11)
[2016-09-02] MEDS: Potassium Chlor TAB* 20 MEQ TAB.ER PO SCH (08:11)
[2016-09-02] MEDS: Docusate CAP* 100 MG PO SCH ×2 (08:11→21:24)
[2016-09-02] MEDS: Carboxymethylcellulos 1% OPTH* 1 DROP AMP BOTH EYES SCH ×2 (08:19→21:27)
[2016-09-02 09:21] LABS: Hematocrit 26 % (35-47); Hemoglobin 8.7 g/dl (12.0-16.0); Mean Corpuscular HGB Conc 33 g/dl (31-36); Mean Corpuscular Hemoglobin 32 pg (27-31); Mean Corpuscular Volume 96 fL (80-97); Mean Platelet Volume 9 um3 (7.4-10.4); Red Cell Distribution Width 14 % (10.5-15); White Blood Count 8.5 10^3/ul (3.5-10.8)
[2016-09-02 09:36] LABS: Albumin 2.9 g/dL (3.2-5.2); BUN/Creatinine Ratio 17.4 (8-20); Calcium 8.3 mg/dL (8.6-10.3); EGFR African American 103.5 (>60); EGFR Non-African American 80.5 (>60); Globulin 2.6 g/dL (2-4); Potassium 4.4 mmol/L (3.5-5.0); Total Bilirubin 1.1 mg/dL (0.2-1.0); Total Protein 5.5 g/dL (6.4-8.9)
[2016-09-02] MEDS: Warfarin TAB(*) 7.5 MG PO SCH (16:43)
[2016-09-02] MEDS: Atorvastatin* 10 MG TAB PO SCH (16:44)
[2016-09-03] MEDS: Multivitamins/Minerals TAB PO SCH (08:54)
[2016-09-03] MEDS: Cholecalciferol TAB* 1000 UNITS PO SCH (08:54)
[2016-09-03] MEDS: Potassium Chlor TAB* 20 MEQ TAB.ER PO SCH (08:54)
[2016-09-03] MEDS: amLODIPine TAB* 5 MG PO SCH (08:54)
[2016-09-03] MEDS: oxyCODONE/Acetamin 5/325 MG* TAB PO PRN ×3 (08:54→20:03)
[2016-09-03] MEDS: Cyanocobalamin TAB* 500 MCG PO SCH (08:54)
[2016-09-03] MEDS: Ferrous Sulfate TAB* 325 MG PO SCH ×2 (08:54→20:03)
[2016-09-03] MEDS: FATTY ACIDS PO SCH (08:55)
[2016-09-03] MEDS: Ascorbic Acid TAB* 500 MG PO SCH (08:55)
[2016-09-03] MEDS: OMEGA PO SCH (08:55)
[2016-09-03] MEDS: Carboxymethylcellulos 1% OPTH* 1 DROP AMP BOTH EYES SCH ×2 (08:56→20:25)
[2016-09-03] MEDS: Docusate CAP* 100 MG PO SCH ×2 (09:40→20:04)
[2016-09-03] MEDS: Atorvastatin* 10 MG TAB PO SCH (15:47)
[2016-09-03] MEDS: Warfarin TAB(*) 5 MG PO SCH (15:47)
[2016-09-04] MEDS: oxyCODONE/Acetamin 5/325 MG* TAB PO PRN ×4 (04:01→21:09)
[2016-09-04] MEDS: Docusate CAP* 100 MG PO SCH ×2 (10:02→21:09)
[2016-09-04] MEDS: OMEGA PO SCH (10:02)
[2016-09-04] MEDS: Multivitamins/Minerals TAB PO SCH (10:02)
[2016-09-04] MEDS: FATTY ACIDS PO SCH (10:02)
[2016-09-04] MEDS: Cholecalciferol TAB* 1000 UNITS PO SCH (10:03)
[2016-09-04] MEDS: amLODIPine TAB* 5 MG PO SCH (10:03)
[2016-09-04] MEDS: Cyanocobalamin TAB* 500 MCG PO SCH (10:03)
[2016-09-04] MEDS: Ascorbic Acid TAB* 500 MG PO SCH (10:03)
[2016-09-04] MEDS: Potassium Chlor TAB* 20 MEQ TAB.ER PO SCH (10:03)
[2016-09-04] MEDS: Ferrous Sulfate TAB* 325 MG PO SCH ×2 (10:03→21:09)
[2016-09-04] MEDS: Scopolamine 1.5 mg* PATCH TRANSDERM SCH (13:02)
[2016-09-04] MEDS: Carboxymethylcellulos 1% OPTH* 1 DROP AMP BOTH EYES SCH ×2 (13:04→21:09)
[2016-09-04] MEDS: Warfarin TAB(*) 7.5 MG PO SCH (17:14)
[2016-09-04] MEDS: Atorvastatin* 10 MG TAB PO SCH (17:14)
[2016-09-04] MEDS: Acetaminophen TAB* 325 MG PO PRN (19:58)
[2016-09-05] MEDS: oxyCODONE/Acetamin 5/325 MG* TAB PO PRN ×2 (03:42→07:58)
[2016-09-05] MEDS: Ferrous Sulfate TAB* 325 MG PO SCH ×2 (07:56→20:21)
[2016-09-05] MEDS: Ascorbic Acid TAB* 500 MG PO SCH (07:56)
[2016-09-05] MEDS: Multivitamins/Minerals TAB PO SCH (07:56)
[2016-09-05] MEDS: Docusate CAP* 100 MG PO SCH ×2 (07:56→20:22)
[2016-09-05] MEDS: Cyanocobalamin TAB* 500 MCG PO SCH (07:56)
[2016-09-05] MEDS: Cholecalciferol TAB* 1000 UNITS PO SCH (07:56)
[2016-09-05] MEDS: Potassium Chlor TAB* 20 MEQ TAB.ER PO SCH (07:56)
[2016-09-05] MEDS: amLODIPine TAB* 5 MG PO SCH (07:57)
[2016-09-05] MEDS: Carboxymethylcellulos 1% OPTH* 1 DROP AMP BOTH EYES SCH ×2 (08:00→20:22)
[2016-09-05] MEDS: FATTY ACIDS PO SCH (09:40)
[2016-09-05] MEDS: OMEGA PO SCH (09:40)
--- NOTE | 2016-09-05 12:46 | PMRUTEAM ---
PMRU: Goals Current Status: Nursing: Current Status Skin Deviations [Right Knee] Incision Skin Deviation Description [ Dressing is intact with small amount of serosang Right Knee] drainage noted Bladder Current Status dribbling noted. wears depends Bowel Current Status colace given. last bm 09/04 Nutrition Current Status appetite good Medication Current Status percocet for pain Physical Therapy: Current Status Bed Mobility Assistance Supervision Transfer Moblility Assistance Supervision Transfer/Bed Mobility Rolling Walker Recommended Devices Ambulation Assistance Supervision Ambulation Assistive Devices Rolling Walker Number of Feet Patient 150 Ambulated Stairs Assistance Supervision Stairs Recommended Devices Two Rails Number of Stairs 5 with reminders of sequkencing of feet up and down Curb Not Tested Occupational Therapy: Current Status Upper Body Dressing Independent Lower Body Dressing Min Assist Lower Body Dressing Progress v/c with shiftman for pants/underwear Bathing Contact Guard Assist Toileting Contact Guard Assist Toileting Progress steadiness, needs v/c for safety Toilet Transfer Contact Guard Assist Shower Transfer Contact Guard Assist Eating Independent Rec Therapy: Current Status Summary of Assessment and Met with patient to follow up. Patient was Clinical Impression pleasant and had a visitor. Declined the need for additional recreational activities. Treatment Goals Patient will engage in leisure actvitities while on the unit. Treatment Plan Provide and encourage involvement in RT services. Social Work: Current Status Discharge Plan return home with home care svs and family support Potential for Family Training pt's daughter is involved and supportive Anticipated Discharge Home Destination Discharge With home care svs and family support Goals: Physical Therapy: Initial Goals Bed Mobility Assistance Independent Transfer Mobility Assistance Independent Transfer/Bed Mobility Rolling Walker Recommended Devices Ambulation Independent Ambulation Recommended Devices Rolling Walker Ambulation Distance 150 Stairs Assistance Independent Stair Recommended Devices Two Rails Number of Stairs 3 Home Exercise Program Independent Assistance Physical Therapy: Updated Goals Bed Mobility Assistance Independent Transfer Mobility Assistance Independent Transfer/Bed Mobility Rolling Walker Recommended Devices Ambulation Assistance Independent Ambulation Assistive Devices Rolling Walker Ambulation Distance (ft) 150 Stairs Assistance Independent Stairs Recommended Devices Two Rails Number of Stairs 3 Home Exercise Program Independent Assistance Occupational Therapy: Initial Goals Goals to be Completed in (Days 7-10 ) Upper Body Bathing Routine Independent Lower Body Bathing Routine Modified Independent with Upper Body Dressing Routine Independent Lower Body Dressing Routine Modified Independent with Toilet Hygeine and Clothing Independent Management Routine Toilet Transfer Routine Modified Independent with Step-In Shower Transfer Modified Independent with Routine Tub Transfer Routine Modified Independent with Functional Transfers for ADL Modified Independent with Grooming Routine Independent,Modified Independent with Feeding Routine Independent Light Housekeeping Tasks Independent,Modified Independent with Nursing: Goals Bladder Goal independent Bowel Goal independent Nutrition Goal 100% of all meals eaten Medication Goal independent Nutrition: Goals Intervention Goals 1. Adequate PO intake to prevent loss of lean body mass 2. Bowel regularity without constipation or diarrhea 3. Understanding of discussion re:fish oil and Coumadin Social Work: Goals Discharge Plan return home with home care svs and family support Potential for Family Training pt's daughter is involved and supportive Anticipated Discharge Home Destination Discharge With home care svs and family support Care Plan: Care Plan ADL's - Improve/Maintain Start: 09/01/16 14:04 Freq: QSHIFT Status: Active Target: Activity Type Activity Date Activity User E-Sign Co-Sign Detail Recorded Client Recorded Date Recorded By Document 09/01/16 14:04 [id number] 09/01/16 14:05 [id number] 09/01/16 14:04 PMRU Outcome: ADL's/ADL Transfers Orders/Interventions Occupational Therapy Evaluation & Treatment Patient to receive OT 5x/wk for 60-120 Therex min/day Self Care Management Group Therapy Neuromuscular ReEducation UE/LE ADL's with Assist Yes ADL Transfers with Assist Yes Toileting: Transfers,Clothing Management Yes ,Hygeine w/Assist Light Kitchen/Laundry w/Assist Yes Progression Toward Outcome/Goals Progressing Outcome/Goals Met Pt has good potential to reach her goals of being IND with ADLs/IADls s/p TKA. Continue with POC. Coping/Psych-Improve/Maintain Start: 09/02/16 03:35 Freq: QSHIFT Status: Active Target: Activity Type Activity Date Activity User E-Sign Co-Sign Detail Recorded Client Recorded Date Recorded By Document 09/05/16 10:33 [id number] [id number] 09/05/16 10:34 [id number] 09/05/16 10:33 PMRU Outcome: Coping/Psychosocial Coping Outcome/Goals Verbalization of Acceptance of Rehab Admit Verbalization of Sense of Control Over Health Status Utilization of Appropriate Problem Solving Techniques Willingness to Participate in Treatment Plan and Basic Needs Utilization of Available Support Systems Absence of Destructive Behavior to Self/Others Psychosocial Outcome/Goals Maintain/ Improve Emotional Health Demonstrates Knowledge of Healthy Coping Mechanisms Available Cooperate/ Participate in Plan Progression Toward Outcome/Goals - Progressing Coping Progression Toward Outcome/Goals - Progressing Psychosocial DVT Prophylaxis- Improve/Maintain Start: 09/02/16 03:35 Freq: QSHIFT Status: Active Target: Activity Type Activity Date Activity User E-Sign Co-Sign Detail Recorded Client Recorded Date Recorded By Document 09/05/16 10:33 [id number] 09/05/16 10:34 [id number] 09/05/16 10:33 PMRU Outcome: DVT Prophylaxis Outcome/Goals Remains Free of DVT Complies with DVT Prophylaxis /Treatment TEDS Stockings on Every AM, Off at HS Progression Toward Outcome/Goals Progressing Outcome/Goals Met Remains Free of DVT Complies with DVT Prophylaxis /Treatment Demonstrates Knowledge of DVT Prevention/ Treatment TEDS Stockings on Every AM, Off at HS Discharge Planning - Improve/Maintain Start: 09/02/16 03:35 Freq: QSHIFT Status: Active Target: Activity Type Activity Date Activity User E-Sign Co-Sign Detail Recorded Client Recorded Date Recorded By Document 09/05/16 03:11 [id number] 09/05/16 03:11 [id number] 09/05/16 03:11 PMRU Outcome: Discharge Planning Identify Patient Needs yes Update Patient Family No Outcome/Goals Demonstrates Understanding of Discharge Plan Progression Toward Outcome/Goals Progressing Education-Improve/Maintain Start: 09/02/16 03:35 Freq: QSHIFT Status: Active Target: Activity Type Activity Date Activity User E-Sign Co-Sign Detail Recorded Client Recorded Date Recorded By Document 09/05/16 10:33 [id number] 09/05/16 10:34 [id number] 09/05/16 10:33 PMRU Outcome: Education Outcome/Goals Demonstrate/ Verbalize Understanding of Written Discharge Instructions Encourage Questions Progression Toward Outcome/Goals Progressing /GI-Improve/Maintain Start: 09/02/16 03:35 Freq: QSHIFT Status: Active Target: Activity Type Activity Date Activity User E-Sign Co-Sign Detail Recorded Client Recorded Date Recorded By Document 09/05/16 10:33 [id number] 09/05/16 10:34 [id number] 09/05/16 10:33 PMRU Outcome: Genitourinary/ Gastrointestinal Genitourinary- Outcome/Goals Maintain/ Achieve Urinary Continence Maintain/ Achieve Adequate Urinary Output Remain Free of Hospital- Acquired UTI Gastrointestinal-Outcome/Goals Maintain/ Achieve Bowel Regularity in Accordance with Pt's Baseline Prevent Constipation Laxatives as Ordered Progression Toward Outcome/Goals - Progressing Progression Toward Outcome/Goals - GI Progressing Medication Administration Start: 09/02/16 03:35 Freq: QSHIFT Status: Active Target: Activity Type Activity Date Activity User E-Sign Co-Sign Detail Recorded Client Recorded Date Recorded By Document 09/05/16 10:33 [id number] 09/05/16 10:34 [id number] 09/05/16 10:33 PMRU Outcome: Medication Administration Assess Patient Knowledge/Teach Med No Education for all Meds Outcome/Goals Patient Independent with Medication Administration at Home Family/ Caregiver Administer Medications at Home Progression Towards Outcome/Goals Progressing Is Patient Going Home on Lovenox? No Mobility- Improve/Maintain Start: 09/01/16 11:45 Freq: QSHIFT Status: Active Target: Activity Type Activity Date Activity User E-Sign Co-Sign Detail Recorded Client Recorded Date Recorded By Document 09/04/16 12:31 [id number] 09/04/16 12:31 [id number] 09/04/16 12:31 PMRU Outcome: Mobility Physical Therapy Evaluation and Yes Treatment Activity OOB with Assistance Yes WBAT Yes Device Yes Assistance Yes Patient to be seen 5x/wk for 60-120 min/ Therex day for: Mobility Training Gait Training Balance Other Therapy Comment ROM Outcome/Goals Maintain/ Achieve Baseline Mobility Status Improve Mobility Status Demonstrates Proper Use of Assistive Devices Free from Complications of Immobility Progression Toward Outcome/Goals Progressing Bed Mobility Yes: Independent Transfers Yes: Modified independent with RW Gait x ft Yes: Modified independent 150 ' with RW Up/Down Stairs Yes: Independent 3 steps 2 rails With HEP Yes: Independent Goal Comment R knee flexion 0-90 Neurological- Improve/Maintain Start: 09/02/16 03:35 Freq: QSHIFT Status: Active Target: Activity Type Activity Date Activity User E-Sign Co-Sign Detail Recorded Client Recorded Date Recorded By Document 09/05/16 10:33 [id number] 09/05/16 10:34 [id number] 09/05/16 10:33 PMRU Outcome: Neurological Weakness/Aphasia Weakness Right Side Outcome/Goals Maintain/ Achieve Baseline Neurological Status Improve Neurological Status Maintain/ Improve Strength/ROM Progression Toward Outcome/Goals Progressing Pain/Comfort- Improve/Maintain Start: 09/02/16 03:35 Freq: QSHIFT Status: Active Target: Activity Type Activity Date Activity User E-Sign Co-Sign Detail Recorded Client Recorded Date Recorded By Document 09/05/16 10:33 [id number] 09/05/16 10:34 [id number] 09/05/16 10:33 PMRU Outcome: Pain/Comfort Outcome/Goals Demonstrates Knowledge and Use of Available Comfort Measures Achieves Acceptable Comfort/Pain Level as Determined by Patient/Condit Maintain Comfort Level Allowing Patient to Fully Participate in Rehab Progression Toward Outcome/Goals Progressing Safety- Improve/Maintain Start: 09/02/16 03:35 Freq: QSHIFT Status: Active Target: Activity Type Activity Date Activity User E-Sign Co-Sign Detail Recorded Client Recorded Date Recorded By Document 09/05/16 10:33 [id number] 09/05/16 10:34 [id number] 09/05/16 10:33 PMRU Outcome: Safety Outcome/Goals Remain Free of Injury or Harm Cooperates with Safety Measures for Least Restrictive Environment Prevent Falls/ Injury Equipment Needed Progression Toward Outcome/Goals Progressing Outcome/Goals Met Comment PA in place Skin- Improve/Maintain Start: 09/02/16 03:35 Freq: QSHIFT Status: Active Target: Activity Type Activity Date Activity User E-Sign Co-Sign Detail Recorded Client Recorded Date Recorded By Document 09/05/16 10:33 [id number] 09/05/16 10:34 [id number] 09/05/16 10:33 PMRU Outcome: Skin Skin Risk Level Low Skin Orders Dressing Change Spenco Boots Heels Off Bed Turn/Position q2hr While in Bed Outcome/Goals Maintain/ Improve Skin Intergrity Surgical Incisions Healing Progression Toward Outcome/Goals Progressing Medicine Note: Length of Stay: 1 week Anticipated Discharge Destination: Home Tentative Discharge Date: 09/12/16 Discharged to: Home
[2016-09-05] MEDS: Ondansetron ODT TAB* 4 MG PO PRN (13:14)
[2016-09-05] MEDS: Warfarin TAB(*) 5 MG PO SCH (17:30)
[2016-09-05] MEDS: Atorvastatin* 10 MG TAB PO SCH (17:30)
[2016-09-05] MEDS: Acetaminophen TAB* 325 MG PO PRN (17:33)
[2016-09-06] MEDS: oxyCODONE/Acetamin 5/325 MG* TAB PO PRN ×2 (05:13→08:58)
[2016-09-06] MEDS: OMEGA PO SCH (08:56)
[2016-09-06] MEDS: FATTY ACIDS PO SCH (08:56)
[2016-09-06] MEDS: Cholecalciferol TAB* 1000 UNITS PO SCH (08:57)
[2016-09-06] MEDS: Ascorbic Acid TAB* 500 MG PO SCH (08:57)
[2016-09-06] MEDS: Multivitamins/Minerals TAB PO SCH (08:57)
[2016-09-06] MEDS: Cyanocobalamin TAB* 500 MCG PO SCH (08:57)
[2016-09-06] MEDS: Docusate CAP* 100 MG PO SCH ×2 (08:57→20:39)
[2016-09-06] MEDS: Ferrous Sulfate TAB* 325 MG PO SCH ×2 (08:57→20:39)
[2016-09-06] MEDS: amLODIPine TAB* 5 MG PO SCH (08:57)
[2016-09-06] MEDS: Potassium Chlor TAB* 20 MEQ TAB.ER PO SCH (08:57)
[2016-09-06] MEDS: Carboxymethylcellulos 1% OPTH* 1 DROP AMP BOTH EYES SCH ×2 (08:58→20:40)
[2016-09-06] MEDS: Ondansetron ODT TAB* 4 MG PO PRN (11:16)
[2016-09-06] MEDS ORDERED: HYDROcodone/ACETAMIN 5-325 MG* 1 TAB PO PRN ×2 (13:03→13:05)
[2016-09-06] MEDS: Acetaminophen TAB* 325 MG PO PRN ×2 (15:53→20:55)
[2016-09-06] MEDS: Atorvastatin* 10 MG TAB PO SCH (17:23)
[2016-09-06] MEDS: Warfarin TAB(*) 5 MG PO SCH (17:23)
[2016-09-06] MEDS: Nystatin SUSPENSION* 100000 UNITS/ML 5 ML UDC PO SCH ×2 (17:26→20:39)
[2016-09-07] MEDS: Acetaminophen TAB* 325 MG PO PRN ×3 (01:17→20:24)
[2016-09-07] MEDS: Carboxymethylcellulos 1% OPTH* 1 DROP AMP BOTH EYES SCH ×2 (09:47→20:26)
[2016-09-07] MEDS: Docusate CAP* 100 MG PO SCH ×2 (09:47→20:24)
[2016-09-07] MEDS: Ascorbic Acid TAB* 500 MG PO SCH (09:47)
[2016-09-07] MEDS: amLODIPine TAB* 5 MG PO SCH (09:47)
[2016-09-07] MEDS: Multivitamins/Minerals TAB PO SCH (09:47)
[2016-09-07] MEDS: Nystatin SUSPENSION* 100000 UNITS/ML 5 ML UDC PO SCH ×4 (09:48→20:27)
[2016-09-07] MEDS: Ferrous Sulfate TAB* 325 MG PO SCH ×2 (09:48→20:24)
[2016-09-07] MEDS: Cholecalciferol TAB* 1000 UNITS PO SCH (09:48)
[2016-09-07] MEDS: Potassium Chlor TAB* 20 MEQ TAB.ER PO SCH (09:48)
[2016-09-07] MEDS: Cyanocobalamin TAB* 500 MCG PO SCH (09:48)
[2016-09-07] MEDS: FATTY ACIDS PO SCH (09:49)
[2016-09-07] MEDS: OMEGA PO SCH (09:49)
[2016-09-07] MEDS: Ondansetron ODT TAB* 4 MG PO PRN (12:14)
[2016-09-07] MEDS ORDERED: Scopolamine 1.5 mg* PATCH TRANSDERM SCH (15:00)
[2016-09-07] MEDS: Warfarin TAB(*) 5 MG PO SCH (17:21)
[2016-09-07] MEDS: Atorvastatin* 10 MG TAB PO SCH (17:21)
[2016-09-07] MEDS ORDERED: traMADol TAB* 50 MG PO PRN (17:47)
[2016-09-08] MEDS: Acetaminophen TAB* 325 MG PO PRN ×2 (02:54→08:24)
[2016-09-08 06:42] VITALS: BP 123/75
[2016-09-08 07:18] LABS: Hematocrit 30 % (35-47); Hemoglobin 9.7 g/dl (12.0-16.0); Mean Corpuscular HGB Conc 33 g/dl (31-36); Mean Corpuscular Hemoglobin 32 pg (27-31); Mean Corpuscular Volume 97 fL (80-97); Mean Platelet Volume 7 um3 (7.4-10.4); Red Blood Count 3.05 10^6/ul (4.0-5.4); Red Cell Distribution Width 15 % (10.5-15); White Blood Count 6.9 10^3/ul (3.5-10.8)
[2016-09-08 07:38] LABS: Albumin 3.2 g/dL (3.2-5.2); BUN/Creatinine Ratio 10.7 (8-20); Calcium 8.6 mg/dL (8.6-10.3); EGFR Non-African American 73.1 (>60); Globulin 2.7 g/dL (2-4); Potassium 3.9 mmol/L (3.5-5.0); Total Bilirubin 1.4 mg/dL (0.2-1.0); Total Protein 5.9 g/dL (6.4-8.9)
[2016-09-08] MEDS: OMEGA PO SCH (08:23)
[2016-09-08] MEDS: Cholecalciferol TAB* 1000 UNITS PO SCH (08:23)
[2016-09-08] MEDS: Potassium Chlor TAB* 20 MEQ TAB.ER PO SCH (08:23)
[2016-09-08] MEDS: Cyanocobalamin TAB* 500 MCG PO SCH (08:23)
[2016-09-08] MEDS: FATTY ACIDS PO SCH (08:23)
[2016-09-08] MEDS: amLODIPine TAB* 5 MG PO SCH (08:23)
[2016-09-08] MEDS: Multivitamins/Minerals TAB PO SCH (08:23)
[2016-09-08] MEDS: Docusate CAP* 100 MG PO SCH (08:23)
[2016-09-08] MEDS: Ascorbic Acid TAB* 500 MG PO SCH (08:23)
[2016-09-08] MEDS: Ferrous Sulfate TAB* 325 MG PO SCH (08:23)
[2016-09-08] MEDS: Carboxymethylcellulos 1% OPTH* 1 DROP AMP BOTH EYES SCH (08:24)
[2016-09-08] MEDS: Nystatin SUSPENSION* 100000 UNITS/ML 5 ML UDC PO SCH (08:24)
--- NOTE | 2016-09-09 04:04 | DS ---
CC: Dr. Mike Ventura * DISCHARGE SUMMARY: DATE OF ADMISSION: 09/01/16 DATE OF DISCHARGE: 09/08/16 DISCHARGE DIAGNOSES: 1. Right total knee replacement. 2. Atrial fibrillation. 3. Hypertension. 4. Hyperlipidemia. 5. Nausea and vomiting secondary to opioid medications. HISTORY OF PRESENT ILLNESS AND HOSPITAL COURSE: For complete history of the events leading up to her rehab stay, please see the history and physical dictated by Dr. Holly Lewis on 09/01/16. While on the rehab unit, the patient was medically stable. Her wound remained clean throughout. She was maintained on Coumadin for both DVT prophylaxis as well as her history of atrial fibrillation. The patient was noted to be slightly confused with physical therapy. She did have a Speech Therapy evaluation while on the rehab unit. The patient was noted to have some short-term memory deficits noted by Speech Therapy and recommended continued skilled speech therapy services after discharge. The patient was also seen by Physical Therapy and Occupational Therapy while on the rehab unit. She made good gains with both disciplines. With physical therapy at the time of admission, the patient required min assist for transfers and was able to ambulate about 45 feet with contact guard. With occupational therapy she was min assist for toileting and toilet transfers. At the time of discharge, she was independent in transfers, able to ambulate 50 feet. She needed supervision for ambulating greater than 50 feet. She did require supervision for toilet transfers. Her daughter was coming to stay with her and could provide supervision at the time of discharge. The patient was discharged home on 09/08/16. DISCHARGE DIET: Regular. DISCHARGE MEDICATIONS: 1. Coumadin 5 mg every other day alternating with 7.5 mg every other day. 2. Lipitor 10 mg daily. 3. Vitamin D 1000 units every day. 4. Vitamin B12 1000 mcg every day. 5. Antivert 12.5 mg as needed. 6. Potassium chloride 20 mEq every day. 7. Amlodipine 2.5 mg every day. 8. Tramadol 50 mg every 6 hours as needed. 9. Tylenol 1000 mg every 6 hours as needed. Please note the patient did develop nausea to opioid medications, so the opioids were stopped. She had a scopolamine patch put on her for the nausea. SERVICES AFTER DISCHARGE: Through visiting nurse service. She will have home nursing, home physical therapy, and a home health aide. FOLLOWUP: With Dr. Maddison Wells in 1 to 2 weeks for suture removal. She will also follow up with Dr. Mike Ventura, her primary care doctor, as needed. [id number]/[facility] #: [id number] MTDD
[2016-09-10] MEDS ORDERED: Scopolomine PATCH Remove* 1 NOTE MISC PATCH OFF SCH (15:00)
== END 2016-09-08 15:40 | disposition home health service (06) | DRG 561 ==
LOC: PMRU 10:09
PROVIDERS: ADMIT Physical Medicine & Rehabilitation; ATTEND Physical Medicine & Rehabilitation
PROC: F07Z5ZZ Bed Mobility Treatment (ICD-10-PCS; principal; 2016-09-01)
PROC: F07Z9ZZ Gait Training/Functional Ambulation Treatment (ICD-10-PCS; 2016-09-01)
PROC: F07Z8ZZ Transfer Training Treatment (ICD-10-PCS; 2016-09-01)
PROC: F08Z0ZZ Bathing/Showering Techniques Treatment (ICD-10-PCS; 2016-09-01)
PROC: F08Z1ZZ Dressing Techniques Treatment (ICD-10-PCS; 2016-09-01)
PROC: F08Z3ZZ Feeding/Eating Treatment (ICD-10-PCS; 2016-09-01)
DX: Z47.1 Aftercare following joint replacement surgery (principal); I48.2 Chronic atrial fibrillation; I34.0 Nonrheumatic mitral (valve) insufficiency; I10 Essential (primary) hypertension; Z96.651 Presence of right artificial knee joint; E78.5 Hyperlipidemia, unspecified; Z66 Do not resuscitate; R11.2 Nausea with vomiting, unspecified; T40.2X5A Adverse effect of other opioids, initial encounter; Y92.230 Patient room in hospital as the place of occurrence of the external cause; X58.XXXA Exposure to other specified factors, initial encounter; F32.9 Major depressive disorder, single episode, unspecified; F41.9 Anxiety disorder, unspecified; I35.0 Nonrheumatic aortic (valve) stenosis; Z85.820 Personal history of malignant melanoma of skin; Z79.1 Long term (current) use of non-steroidal anti-inflammatories (NSAID); Z79.899 Other long term (current) drug therapy; Z79.01 Long term (current) use of anticoagulants; Z88.8 Allergy status to other drugs, medicaments and biological substances; Z80.1 Family history of malignant neoplasm of trachea, bronchus and lung
CPT/HCPCS: 36415; 80053; 85025; 85610; A9270-GY

== ENCOUNTER → 2017-11-26 08:11 | Day surgery (SDC) | payer MEDICARE ==
[~2017-11-26 08:11] MED LIST changes: -Buffered Lidocaine 1% SYRIN* 5 ML/SYR SYRINGE INTRADERM ONE; +Heparin 2 UNITS/ML IVPREMIX* 2,000 ML IV ONE; +Heparin(*) 1000 UNIT/ML 10 ML VIAL CATH LAB IV ONE; +Iohexol 350 (CONTRAST) 200 ML MDV IV ONE; +Lidocaine 1%* 5 ML VIAL ONE; +Midazolam* 1 MG/ML 10 ML VIAL (10 MG) ONE; +VERAPAMIL 2.5 MG/ML 2 ML VIAL ** 5 mg/2 ml ONE; +fentaNYL* 50 MCG/ML 2 ML VIAL (100 MCG VIAL) ONE; +nitroGLYCERIN DRIP* 25,000 MCG/250 ML BTL ONE
[2017-11-26 09:20] LABS: INR 1.09 (0.77-1.02)
[2017-11-26 13:00] VITALS: BP 127/74
--- NOTE | 2017-11-26 14:29 | CATH ---
CC: Dr. Harsh Sher; Dr. Mike Ventura; Dr. Fei Polanco* CARDIAC CATHETERIZATION REPORT: DATE OF PROCEDURE: 11/26/17 - [facility] CATH INDICATION FOR THE PROCEDURE: Asked by Dr. Harsh Sher to perform diagnostic cardiac catheterization on this patient in preparation for TAVR procedure. The procedure was coronary arteriography. APPROACH: Right radial artery. EQUIPMENT UTILIZED: 1. 6-[place] radial artery Glidesheath. 2. 5-[place] TIG 4 curve catheter. 3. Guidewires included a 260 length [place]-curved guidewire and a 145 length [place]oley guidewire. MEDICATIONS GIVEN: Included a 0.5 mg of Versed as well as a radial artery cocktail including the combination of 3000 units of heparin, 300 mcg of nitroglycerin, and 3 mg verapamil intraarterial. PROCEDURE: The patient was interviewed and examined in the holding area where the risks and benefits were explained. She understood them and agreed to proceed. The right radial artery was assessed under ultrasound in the holding area and found to be acceptable and as such this approach was taken. The patient was brought into the cardiovascular laboratory. A formal time-out was performed. Under ultrasound guidance, the right radial artery was cannulated and the Glidesheath was placed followed by the radial artery cocktail. Diagnostic coronary arteriography was performed utilizing the 5-[place] TIG 4 curved catheter. Following this, the catheter and sheath were removed and hemostasis was obtained with a radial artery Vas band. The reverse Barbeau was A ,B. Total contrast used was 45 cc of Omnipaque dye. Radiation exposure included 3.8 minutes of fluoro time. The air kerma radiation was 444 milligray. The DAP radiation was 2615 microgray per meter squared. PRECARDIAC CATHETERIZATION LABORATORY RESULTS: Hemoglobin and hematocrit of 14.5 and 43, white count 3,600, platelets 151,000. BUN 24, creatinine 0.8, glucose 95. The INR was 1.01. RESULTS: CORONARY ARTERIOGRAPHY: A. Left coronary artery: 1. Left main - widely patent with no significant obstructions noted. 2. Left anterior descending artery - the left anterior descending artery supplied a high first diagonal branch followed by a second diagonal branch, which had a mild ostial narrowing of 35 to 40%. Past the third small diagonal branch was an area of moderate stenosis of 55 to 60% noted. The artery continued and turned on to the inferior surface of the heart supplying some of the distal inferior wall. 3. Circumflex artery - a nondominant vessel supplying a thin, first obtuse marginal branch and a smaller second obtuse marginal branch. B. Right coronary artery - a significantly dominant vessel supplying the PDA and 2 posterior left ventricular branches. There was mild luminal irregularity noted in the mid portion of the right coronary artery of approximately 35%. OVERALL ASSESSMENT: Mild and moderate coronary artery disease involving 55 to 60% mid LAD lesion just after the third diagonal branch, as well as a mild 30 to 35% obstruction seen in the mid portion of the right coronary artery. This information will be shared with Dr. Harsh Sher, who will be performing the TAVR procedure later on this week. [id number]/[facility] #: [id number] LAURITA
--- NOTE | 2017-11-27 21:41 | LTR ---
CC: Dr. Mike Ventura; Dr. Harsh Sher, [facility] LETTER: DATE: 11/27/17 To: Fei Polanco MD RE: Louise Cook : 28 Dear Fei: This is a letter just to let you know that I had performed the outpatient cardiac catheterization salvador t Dr. Sher wished me to do to look at the coronary anatomy for the upcoming TAVR procedure on Ms. Chicho urias. The catheterization was performed on 11/26/17. It demonstrated mild disease in the right cor onary artery with a mid 30% to 35% lesion and moderate disease in the mid to distal LAD with a 55% to 60% obstruction. Neither of these probably needs to be addressed at this point with regard to any t ype of revascularization. She has been off the Coumadin in preparation for the heart catheterization , but also in preparation for the TAVR procedure, which reportedly is being done this week. As always, if you have any questions, please feel free to speak with me. Sincerely, [id number]/[facility] #: [id number]
== END | disposition home or self-care (01) ==
LOC: CHICATH 08:11
PROVIDERS: ATTEND Internal Medicine Cardiovascular Disease
DX: I35.0 Nonrheumatic aortic (valve) stenosis (principal); I25.10 Atherosclerotic heart disease of native coronary artery without angina pectoris
CPT/HCPCS: 36415; 76937; 85610; 93454; J1644; J2250; J3010

== ENCOUNTER 2018-01-03 17:01 | Emergency (ER) | payer MEDICARE ==
[2018-01-03] MEDS ORDERED: Losartan TAB* 25 MG PO ONE (18:31)
[2018-01-03 18:38] LABS: Hematocrit 44 % (35-47); Hemoglobin 14.9 g/dl (12.0-16.0); Mean Corpuscular HGB Conc 34 g/dl (31-36); Mean Corpuscular Hemoglobin 32 pg (27-31); Mean Corpuscular Volume 95 fL (80-97); Mean Platelet Volume 8.2 um3 (7.4-10.4); Platelet Count 148 10^3/ul (150-450); Red Blood Count 4.62 10^6/ul (4.00-5.40); Red Cell Distribution Width 14 % (10.5-15); White Blood Count 6.1 10^3/ul (3.5-10.8)
[2018-01-03 19:01] LABS: EGFR Non-African American 69.7 (>60)
--- NOTE | 2018-01-03 19:55 | ED ---
Hypertension - HPI Summary HPI Summary: An 87 y/o female presents to the ED c/o high blood pressure since this morning at 10:00 when she may have had a cup of regular coffee instead of decaf. She went to cardiac rehab at 13:30 where her BP continued to rise. She had a BP of 170/101 today. She denies dizziness, CP, BAILEY or dyspnea. She has a PMHx of HTN and a PSHx of an aortic valve replacement. She was taken off her anti- hypertensives because she was getting dizzy. Currently she is taking a blood thinner. She has a PMHx of HTN that was resolved and vertigo that was resolved. She worked out this morning at 6:00 and thought it went fine. She has a glass of wine every week. - History of Current Complaint Chief Complaint: EDHypertension Stated Complaint: HIGH BLOOD PRESSURE Time Seen by Provider: 01/03/18 18:00 Hx Obtained From: Patient Onset/Duration: Started Hours Ago Timing: Constant Aggravating Factor(s): Nothing Alleviating Factor(s): Nothing - Allergies/Home Medications Allergies/Adverse Reactions: Allergies Allergy/AdvReac Type Severity Reaction Status Date / Time lisinopril Allergy Coughing Verified 01/03/18 18:28 shellfish derived Allergy GI Upset Verified 01/03/18 18:28 PMH/Surg Hx/FS Hx/Imm Hx Previously Healthy: No Endocrine/Hematology History: Denies: Hx Diabetes Cardiovascular History: Reports: Hx Hypercholesterolemia, Hx Hypertension, 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, Other Cardiovascular Problems/ Disorders - leaky valve Denies: Hx Angina, Hx Coronary Artery Disease, Hx Myocardial Infarction, Hx Pacemaker/ICD Respiratory History: Denies: Hx Asthma, Hx Chronic Obstructive Pulmonary Disease (COPD) History: Denies: Hx Renal Disease Musculoskeletal History: Reports: Hx Arthritis - BILATERAL HIPS AND RIGHT KNEE, Hx Bursitis - LEFT ARM Sensory History: Reports: Hx Cataracts, Hx Contacts or Glasses, Hx Hearing Aid Opthamlomology History: Reports: Hx Cataracts, Hx Contacts or Glasses Psychiatric History: Denies: Hx Panic Disorder - Cancer History Cancer Type, 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 Rt KNEE REPLACEMENT. CATARACTS Hx Anesthesia Reactions: No Infectious Disease History: No Infectious Disease History: Denies: Traveled Outside the [place] in Last 30 Days - Family History Known Family History: Positive: Other - mother, lung cancer - Social History Alcohol Use: Weekly Alcohol Amount: 1 glass of wine on Sunday nights Substance Use Type: Reports: None Smoking Status (MU): Never Smoked Tobacco Review of Systems Negative: Fever, Chills Negative: Erythema Negative: Sore Throat Cardiovascular: Other - Positive: high blood pressure Negative: Chest Pain Negative: Shortness Of Breath, Cough Negative: Abdominal Pain, Vomiting, Nausea Negative: dysuria, hematuria Negative: Myalgia, Edema Neurological: Negative - dizziness All Other Systems Reviewed And Are Negative: Yes Physical Exam - Summary Physical Exam Summary: Constitutional: Well-developed, Well-nourished, Alert. (-) Distressed Skin: Warm, Dry HENT: Normocephalic; Atraumatic Eyes: Conjunctiva normal Neck: Musculoskeletal ROM normal neck. (-) JVD, (-) Stridor, (-) Tracheal deviation Cardio: Rhythm regular, rate normal, Heart sounds normal; Intact distal pulses; The pedal pulses are 2+ and symmetric. Radial pulses are 2+ and symmetric. (-) Murmur Pulmonary/Chest wall: Effort normal. (-) Respiratory distress, (-) Wheezes, (-) Rales Abd: Soft, (-) epigastric tenderness, (-) Distension, (-) Guarding, (-) Rebound Musculoskeletal: (-) Edema Lymph: (-) Cervical adenopathy Neuro: Alert, Oriented x3 Psych: Mood and affect Normal Triage Information Reviewed: Yes Vital Signs On Initial Exam: Initial Vitals Temp Pulse Resp BP Pulse Ox 98.1 F 62 16 179/126 96 01/03/18 17:12 01/03/18 17:12 01/03/18 17:12 01/03/18 17:12 01/03/18 17:12 Vital Signs Reviewed: Yes Diagnostics - Vital Signs Vital Signs Temp Pulse Resp BP Pulse Ox 01/03/18 18:48 66 15 176/127 97 01/03/18 18:44 59 15 161/85 98 01/03/18 18:19 82 15 208/118 96 01/03/18 18:11 70 14 98 01/03/18 17:12 98.1 F 62 16 179/126 96 - Laboratory Lab Results: Lab Results 01/03/18 01/03/18 Range/Units 18:26 18:26 WBC 6.1 (3.5-10.8) 10^3/ul RBC 4.62 (4.00-5.40) 10^6/ul Hgb 14.9 (12.0-16.0) g/dl Hct 44 (35-47) % MCV 95 (80-97) fL MCH 32 H (27-31) pg MCHC 34 (31-36) g/dl RDW 14 (10.5-15) % Plt Count 148 L (150-450) 10^3/ul MPV 8.2 (7.4-10.4) um3 Sodium 140 (135-145) mmol/L Potassium 4.2 (3.5-5.0) mmol/L Chloride 105 (101-111) mmol/L Carbon Dioxide 29 (22-32) mmol/L Anion Gap 6 (2-11) mmol/L BUN 18 (6-24) mg/dL Creatinine 0.78 (0.51-0.95) mg/dL Est GFR ( Amer) 84.3 (>60) Est GFR (Non-Af Amer) 69.7 (>60) BUN/Creatinine Ratio 23.1 H (8-20) Glucose 114 H (70-100) mg/dL Calcium 9.6 (8.6-10.3) mg/dL Total Bilirubin 0.90 (0.2-1.0) mg/dL AST 18 (13-39) U/L ALT 16 (7-52) U/L Alkaline Phosphatase 74 (34-104) U/L Troponin I 0.05 H* (<0.04) ng/mL Total Protein 7.2 (6.4-8.9) g/dL Albumin 4.2 (3.2-5.2) g/dL Globulin 3.0 (2-4) g/dL Albumin/Globulin Ratio 1.4 (1-3) Result Diagrams: 01/03/18 18:26 01/03/18 18:26 Lab Statement: Any lab studies that have been ordered have been reviewed, and results considered in the medical decision making process. - EKG 18:36 Cardiac Rate: Other Rate EKG Rhythm: Atrial Fibrillation - at 63 bpm EKG Interpretation: no STEMI Re-Evaluation - Re-Evaluation First Eval Re-Evaluation Time: 19:50 Change: Improved Comment: BP is coming down. 160 systolic. Hypertension Course/Dx - Course Course Of Treatment: An 87 y/o female presents to the ED c/o high blood pressure since this morning at 10:00 when she may have had a cup of regular coffee instead of decaf. She went to cardiac rehab at 13:30 where her BP continued to rise. She had a BP of 170/101 today. She denies dizziness, CP, BAILEY or dyspnea. She has a PMHx of HTN and a PSHx of an aortic valve replacement. She was taken off her anti-hypertensives because she was getting dizzy. Currently she is taking a blood thinner. She has a PMHx of HTN that was resolved and vertigo that was resolved. She worked out this morning at 6:00 and thought it went fine. She has a glass of wine every week. The patient had a normal physical exam. Her BP lowered. Troponins are stable. No evidence for end organ injury. The final dx is hypertension. She should follow up with her PCP in 2-3 days. The patient is agreeable with this plan. - Diagnoses Provider Diagnoses: Uncontrolled hypertension Discharge - Sign-Out/Discharge Documenting (check all that apply): Patient Departure - Discharge Plan Condition: Stable Disposition: HOME Prescriptions: Losartan TAB* [Cozaar TAB*] 25 mg PO DAILY #14 tab Patient Education Materials: Hypertension (ED) Referrals: Mike Ventura MD [Primary Care Provider] - 2 Days Additional Instructions: Please return to the ED if you experience changing or worsening symptoms. - Attestation Statements Document Initiated by Scribe: Yes Documenting Scribe: Tad Julien Provider For Whom Scribe is Documenting (Include Credential): Karlos Scruggs MD Scribe Attestation: ITad, scribed for Karlos Scruggs MD on 01/03/18 at 0152.
[2018-01-03 20:34] LABS: INR 2.29 (0.77-1.02)
[2018-01-03 22:10] VITALS: BP 170/88
== END 2018-01-03 22:00 | disposition home or self-care (01) ==
LOC: ED 17:01
DX: I10 Essential (primary) hypertension (principal); I48.91 Unspecified atrial fibrillation; Z95.2 Presence of prosthetic heart valve; Z88.8 Allergy status to other drugs, medicaments and biological substances
CPT/HCPCS: 36415; 80053; 84484; 85027; 85610; 85730; 93005; 99284; A9270-GY

== ENCOUNTER 2018-02-08 03:16 | Emergency (ER) | payer MEDICARE ==
--- NOTE | 2018-02-08 03:47 | ED ---
Neurological HPI - HPI Summary HPI Summary: This pt is an 87 y/o female presenting to [facility] c/o numbness and nausea today. Pt reports she has been having intermittent numbness running down the sides of her face and on back of left arm, lasting around 20 seconds at a time. Additionally notes pounding noise in her ears and high blood pressure. Pt states her symptoms began since 21:30 last night. She reports pt went to sleep and woke up at 01:00 to go to the bathroom to urinate. She felt nauseous then. Denies vomiting. Additionally notes having a lot of stress recently and feeling anxious. She states her son in law, who lives in [facility] with daughter, has a brain tumor. Pt denies fever, chills, chest pain, SOB, confusion. Neighbor reports pt went to see her PCP last week for elevated BP and her medications were increased. PMHx includes aortic valve replacement (done in October in [place]) from the groin, HTN, afib. Pt takes Losartan BID, amlodipine twice in the morning, Coumadin, and Lipitor. Her engine dynamometer tester is Dr. Polanco. Pt lives at home alone. - History of Current Complaint Chief Complaint: EDGeneral Stated Complaint: FACIAL/LEFT ARM NUMBNESS Time Seen by Provider: 02/08/18 03:30 Hx Obtained From: Patient, Family/Principal Android Developer - Neighbor Onset/Duration: Still Present Timing: Intermittent Episodes Lasting: - 20 seconds at a time Onset Severity: Mild Current Severity: None Neurological Deficit Location: Facial, LUE Pain Intensity: 0 - denies pain Pain Scale Used: 0-10 Numeric Character: Numbness/Tingling - numbness running down on sides of face and back of left arm Aggravating: Nothing Alleviating: Nothing Associated Signs and Symptoms: Positive: Tinnitus - pounding noise in her ears, Numbness, Nausea/Vomiting - POS: nausea, Anxiety - and recent stress. Negative : Confusion, Loss of Consciousness, Fever, Chest Pain - Additional Pertinent History Primary Care Physician: GITA - Allergy/Home Medications Allergies/Adverse Reactions: Allergies Allergy/AdvReac Type Severity Reaction Status Date / Time lisinopril Allergy Coughing Verified 02/08/18 03:33 shellfish derived Allergy GI Upset Verified 02/08/18 03:33 Home Medications: Home Medications Amlodipine Besylate [Norvasc 5 mg tab] 5 mg PO DAILY 02/08/18 [History Confirmed 02/08/18] Cholecalciferol (Vitamin D3) [ Vitamin D3] 1,000 unit PO DAILY 02/08/18 [ History Confirmed 02/08/18] Warfarin Sodium 5 mg PO EVERY OTHER DAY 02/08/18 [History Confirmed 02/08/18] Warfarin Sodium 7.5 mg PO EVERY OTHER DAY 02/08/18 [History Confirmed 02/08/18] PMH/Surg Hx/FS Hx/Imm Hx Endocrine/Hematology History: Denies: Hx Diabetes Cardiovascular History: Reports: Hx Hypercholesterolemia, Hx Hypertension, 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, Other Cardiovascular Problems/ Disorders - leaky valve Denies: Hx Angina, Hx Coronary Artery Disease, Hx Myocardial Infarction, Hx Pacemaker/ICD Respiratory History: Denies: Hx Asthma, Hx Chronic Obstructive Pulmonary Disease (COPD) History: Denies: Hx Renal Disease Musculoskeletal History: Reports: Hx Arthritis - BILATERAL HIPS AND RIGHT KNEE, Hx Bursitis - LEFT ARM Sensory History: Reports: Hx Cataracts, Hx Contacts or Glasses, Hx Hearing Aid Opthamlomology History: Reports: Hx Cataracts, Hx Contacts or Glasses Psychiatric History: Denies: Hx Panic Disorder - Cancer History Cancer Type, 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 Rt KNEE REPLACEMENT. CATARACTS Hx Anesthesia Reactions: No Infectious Disease History: No Infectious Disease History: Denies: Traveled Outside the [place] in Last 30 Days - Family History Known Family History: Positive: Other - mother, lung cancer Family History: mother, lung cancer - Social History Alcohol Use: Weekly Alcohol Amount: 1 glass of wine on Sunday nights Substance Use Type: Reports: None Smoking Status (MU): Never Smoked Tobacco Review of Systems Negative: Fever, Chills ENT: Other - POS: pounding noise in ears Negative: Chest Pain Negative: Shortness Of Breath Positive: Nausea Neurological: Other - NEG: confusion Positive: Numbness - intermittent on face and left arm Psychological: Other - POS: stress Positive: Anxious All Other Systems Reviewed And Are Negative: Yes Physical Exam - Summary Physical Exam Summary: VITAL SIGNS: Reviewed. GENERAL: Patient is a well-developed and nourished female who is lying comfortable in the stretcher. Patient is not in any acute respiratory distress. HEAD AND FACE: No signs of trauma. No ecchymosis, hematomas or skull depressions. No sinus tenderness. EYES: PERRLA, EOMI x 2, No injected conjunctiva, no nystagmus. EARS: Hearing grossly intact. Ear canals and tympanic membranes are within normal limits. MOUTH: Oropharynx within normal limits. NECK: Supple, trachea is midline, no adenopathy, no JVD, no carotid bruit, no c- spine tenderness, neck with full ROM. CHEST: Symmetric, no tenderness at palpation LUNGS: Clear to auscultation bilaterally. No wheezing or crackles. CVS: Regular rate and rhythm, S1 and S2 present, no murmurs or gallops appreciated. ABDOMEN: Soft, non-tender. No signs of distention. No rebound no guarding, and no masses palpated. Bowel sounds are normal. EXTREMITIES: FROM in all major joints, no edema, no cyanosis or clubbing. NEURO: Alert and oriented x 3. No acute neurological deficits. Speech is normal and follows commands. SKIN: Dry and warm Triage Information Reviewed: Yes Vital Signs On Initial Exam: Initial Vitals Temp Pulse Resp BP Pulse Ox 97.5 F 69 18 172/85 98 02/08/18 03:18 02/08/18 03:18 02/08/18 03:18 02/08/18 03:18 02/08/18 03:18 Vital Signs Reviewed: Yes Diagnostics - Vital Signs Vital Signs Temp Pulse Resp BP Pulse Ox 02/08/18 03:32 26 168/99 02/08/18 03:30 24 02/08/18 03:18 97.5 F 69 18 172/85 98 - Laboratory Result Diagrams: 02/08/18 04:00 02/08/18 04:00 Lab Statement: Any lab studies that have been ordered have been reviewed, and results considered in the medical decision making process. - EKG 04:06 Cardiac Rate: NL - at 61 bpm EKG Rhythm: Atrial Fibrillation Summary of EKG Findings: Afib at 61 bpm Course/Dx - Course Assessment/Plan: Pt is an 87 y/o female who presents to the ED with numbness and nausea today. Pt reports she has been having intermittent numbness running down the sides of her face and on back of left arm, lasting around 20 seconds at a time. Additionally notes pounding noise in her ears and high blood pressure. Pt states her symptoms began since 21:30 last night. She reports pt went to sleep and woke up at 01:00 to go to the bathroom to urinate. She felt nauseous then. Denies vomiting. Additionally notes having a lot of stress recently and feeling anxious. EKG shows afib at 61 bpm. In the ED course the pt was given Ativan, Zofran, amlodipine. Pt will be discharged home with follow up from her PCP. She was instructed to return to the ED for any worsening or new symptoms. Pt's neighbor will drive the pt home. - Diagnoses Provider Diagnoses: Hypertension, Anxiety Discharge - Sign-Out/Discharge Documenting (check all that apply): Patient Departure - Discharge home - Discharge Plan Condition: Stable Disposition: HOME Prescriptions: ALPRAZolam TAB* [Xanax TAB*] 0.25 mg PO BID PRN #14 tab MDD 2 PRN Reason: Anxiety Patient Education Materials: Hypertension (ED), Anxiety (ED) Referrals: Mike Ventura MD [Primary Care Provider] - Additional Instructions: Please follow up with your primary care provider in 1-2 days. RETURN TO EMERGENCY DEPARTMENT FOR ANY NEW OR WORSENING SYMPTOMS. - Attestation Statements Document Initiated by Scribe: Yes Documenting Scribe: Latesha Buckley Provider For Whom Scribe is Documenting (Include Credential): Rodrigo Red MD Scribe Attestation: Latesha De La Cruz, scribed for Rodrigo Red MD on 02/08/18 at 0601.
[2018-02-08] MEDS ORDERED: ALPRAZolam TAB* 0.25 MG PO ONE (03:49)
[2018-02-08] MEDS ORDERED: Ondansetron ODT TAB* 4 MG SL PRN (03:53)
[2018-02-08] MEDS ORDERED: Ondansetron ODT TAB* 4 MG ONE (03:56)
--- OUTSIDE RECORDS SUMMARY | 2018-02-08 04:05 | XMS REPORT | Continuity of Care Document ---
:1930 External Reference #:[id number] Author Name Javed Canales M.D. Address [address] [place] [address] Care Team Providers Name Role Phone Mike Ventura M.D. Primary Care Physician Unavailable Payers Type Date Identification Numbers Payment Provider Subscriber Policy Number: [id number] [facility] Louise Cook Group Number: [id number] [address] [address] PayID: [id number] [place] [address] Advance Directives Description No Information Available Problems Date Description Provider Status Onset: Atrial fibrillation Active Onset: Essential hypertension Active Onset: Vertigo Active Onset: Arthritis Active Onset: Hypercholesterolemia Active Onset: 07/14/2015 Conjunctival hemorrhage Holly Mercado O.D. Active Onset: 07/14/2015 Tear film insufficiency Holly Mercdao O.D. Active Onset: 08/17/2015 Vitreous degeneration Holly Mercado O.D. Active Onset: 08/17/2015 Presence of intraocular lens Hloly Mercado O.D. Active Onset: 08/17/2015 Myopia Holly Mercado O.D. Active Onset: 08/17/2015 Presbyopia Holly Mercado O.D. 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 Night For 2 Weeks Artificial Tears 01/23/ Active Solution 0.2-0.2-1% One drop Javed 2017 in both Zablocki, eyes M.D. once at night before bed Flax Seed Oil 09/25/ Active Capsules 1200mg Javed 2017 [place]ablocki, M.D. Atorvastatin / Active Tablets 10mg Unknown Calcium 0000 Warfarin Sodium / Active Tablets 5mg Unknown 0000 Potassium / Active Tablets ER 20Meq Unknown Chloride Anali ER 0000 Fish Oil / Active Capsules 1000mg 1 by Unknown 0000 mouth every day Vitamin D High / Active Capsules 1000Unit Unknown Potency 0000 Vitamin B-12 / Active Tablets 500mcg Unknown 0000 Sub Viscotears / Active Liquid Gel Unknown 0000 Magnesium / Active Capsules 500mg 2x/day Unknown 0000 Vitamin C 00/ Active Capsules 500mg 1 by Unknown 0000 mouth every day Soothe XP 07/13/ Hx Solution 1 drop Holly Fisher 2016 - both Rogelio O.DHeavenly 08/23/ eyes 2016 every day as needed Amlodipine // Hx Tablets 2.5mg Unknown Besylate 0000 - 2017 Losartan /00/ Hx Tablets 25mg Unknown Potassium 0000 - 2017 Systane Contacts / Hx Solution as Unknown Soothing Drops 0000 - needed 2016 Acetaminophen / Hx Solution 325mg Unknown 0000 - 2017 Medications Administered in Office Medication Date Status Form Strength Qnty SIG Indications Ordering Provider Crizal Administered Injection Catarina 9 Nandini Clark Immunizations Description No Information Available Vital Signs Date Vital Result Comment 12/05/2017 10:01am BP Systolic 140 mmHg BP Diastolic 103 mmHg Heart Rate 73 /min Results Description No Information Available Procedures Date Code Description Status 12/19/2017 14200 Est Patient Intermediate Exam Completed 12/05/2017 90801 Est Patient Comprehensive Exam Completed 09/25/2017 93859 Determination Of Refractive State Completed 09/25/2017 27898 Est Patient Comprehensive Exam Completed 09/21/2016 47989 Determination Of Refractive State Completed 08/23/2016 21051 Est Patient Comprehensive Exam Completed 08/17/2015 15157 Determination Of Refractive State Completed 08/17/2015 39367 Est Patient Comprehensive Exam Completed 07/14/2015 34481 Est Patient Intermediate Exam Completed 10/28/2013 27161 Determination Of Refractive State Completed 10/28/2013 02393 Est Patient Comprehensive Exam Completed 11/14/2011 29629 Est Patient Intermediate Exam Completed 07/27/2011 89953 Determination Of Refractive State Completed 07/27/2011 54313 Est Patient Comprehensive Exam Completed 05/04/2009 12538 Est Patient Comprehensive Exam Completed 05/04/2009 37163 Determination Of Refractive State Completed 04/29/2008 60628 Extracapsular Cataract Extraction W/Intraocular Lens Completed 04/23/2008 69076 Ophthalmic Biometry Completed 04/22/2008 80602 Extracapsular Cataract Extraction W/Intraocular Lens Completed 04/01/2008 75642 Ophthalmic Biometry Completed 04/01/2008 11715 Scanning Laser W/Interp And Report Completed 04/01/2008 28301 Computerized Corneal Topography Completed 03/17/2008 59007 Est Patient Comprehensive Exam Completed 09/13/2007 08257 Determination Of Refractive State Completed 09/13/2007 28463 Est Patient Comprehensive Exam Completed 08/13/2006 73833 Determination Of Refractive State Completed 08/13/2006 52425 New Patient Comprehensive Exam Completed 07/28/1998 113 Crizal Completed Encounters Type Date Location Provider Dx Diagnosis Office Visit 09/21/2016 Javed Akbar H11.31 Conjunctival 10:00a , yari Canales M.D. hemorrhage, right eye H52.13 Myopia, bilateral H52.4 Presbyopia Office Visit 08/10/2011 1:00p Mike Balderas 379.21 Vitreous MD Kayce, yari Kern MD Degeneration Office Visit 04/01/2008 11:00a Mike Devries, 366.16 Senile Nuclear MD Kayce, pc Bruce. Sclerosis / Cataract Plan of Treatment 01/31/2018 - Javed Canales M.D.H04.123 Dry eye syndrome of bilateral lacrimal glandsComments:Smoking can increase the risk of developing or worsening any eye related disease, as well as affect your overall health. If you are a smoker, we strongly recommend that you quit.If you are not a smoker, we strongly recommend that you do not start. Both of your eyes appear to be dry. Use artificial tears as directed. You can use the tears more often if you are reading a book or are on the computer,as we tend to blink less, making our eyes dry out more.[facility] offers a few items in our optical department to help alleviate dry eye symptoms.H01.001 Unspecified blepharitis right upper eyelidNew Medication:Erythromycin 5 mg/GM - Apply To Both Eyes AT Night For 2 WeeksComments:Please follow Dr. Canales's instructions. CONTINUE USING THE ARTIFICAL TEARS 2-3 TIMES A DAY TO BOTH EYES FOR TWO WEEKS THEN DECREASE TO NEEDED. ~I_SOME BRANDS I RECOMMEND ARE, SYSTANE, REFRESH OR THERATEARS.~i_ CONTINUE USING HOT COMPRESSES FOR 3-5 MINUTES BEFORE BEDTIME FOR BOTH EYES. I WILL PRESCRIBE AN ANTIBIOTIC OINTMENT, USE AT NIGHT BEFORE BED TO BOTH EYES FOR TWO WEEKS, THEN DISCONTINUE.H01.004 Unspecified blepharitis left upper eyelid
--- OUTSIDE RECORDS SUMMARY | 2018-02-08 04:05 | XMS REPORT ---
:1930 External Reference #:[id number] Author Organization [employer] [facility] Address [address] [place] [address] Phone [phone] Care Team Providers Name Role Phone Severo Ventura MD Primary Care Physician Unavailable Payers Type Date Identification Payment Subscriber Numbers Provider Health Maintenance Effective: Policy Number: Medicare Karthikeyan Cook Organization ([facility]) 04/02/2012 [id number] o Group Number: [id number] [address] PayID: [id number] [place] [address] Health Maintenance Effective: Policy Number: Medicare Karthiekyan Ochoa (O) 04/04/2005 [id number] o Joyce Expires: 04/01/2012 PayID: [id number] [address] [place] [id number] Medigap Part B Effective: 04/02/2011 Policy Number: BS Jonnie Cook [id number] Expires: 04/01/2012 PayID: [id number] [address] [id number] [place] [id number] Medigap Part B Effective: 09/30/2009 Policy Number: BS Silvina FERN Cook [id number] Expires: 04/02/2011 PayID: [id number] [address] [id number] [place] [id number] Problems Date Description Provider Status Onset: 07/03/2011 Atrial fibrillation Fei Polanco M.D. Active Onset: 07/03/2011 Benign essential hypertension Fei Polanco M.D. Active Onset: 07/03/2011 Mitral valve disorder Fei Polanco M.D. Active Onset: 07/03/2011 Pure hypercholesterolemia Fei Polanco M.D. Active Onset: 03/22/2015 Chronic atrial fibrillation Fei Polanco M.D. Active Onset: 04/07/2015 Localized, primary osteoarthritis Maddison Wells M.D. Active Onset: 04/07/2015 Localized, primary osteoarthritis of Maddison Wells M.D. Active the pelvic region and thigh Onset: 06/15/2017 Essential hypertension Fei Polanco M.D. Active Family History Date Family Member(s) Problem(s) Comments General Cancer : (age 67 Father due to CAD possible CAD-COPD Years) : (age 52 Mother due to Cancer, Years) Lung Siblings 2 Social History Type Date Description Comments Marital Status age 16 to 81 Marital Status 02/2012 Lives With Alone Occupation retired bank compliance officer Cigarette Use Never Smoked Cigarettes ETOH Use Occasionally consumes alcohol 1 glass of wine once a week Smoking Patient has never smoked Daily Caffeine Comsumes on average 1 cup of decaff coffee per day Daily Caffeine Consumes on average 3 cups of Green Tea hot tea per day Exercise Type/Frequency Exercises regularly sunday through sunday water aerobics General Hx Text 5 adult children. Allergies, Adverse Reactions, Alerts Date Description Reaction Status Severity Comments 01/09/2013 Lisinopril cough active cough 12/16/2008 NKDA inactive Medications Medication Date Status Form Strength Qnty SIG Indications Ordering Provider Amlodipine 01/23 Active Tablets 2.5mg 180ta 2 tabs by I10 Fei Bella bs mouth F. every day Jeremiah Polanco Lipitor 03/29 Active Tablets 10mg 100ta 1 by Fei /2008 bs mouth F. every Mauser, night at M.D. bedtime Potassium Active Tablets 20Meq 25tab 1 by Fei Chloride ER / ER s mouth F. twice Mauser, weekly M.D. mon/mihai y Cinnamon Active 1000mg 1 tablet Unknown /0000 po twice daily Am/PM Fish Oil Active Capsules 1200mg 1 by Unknown /0000 mouth one daily Vitamin B-12 Active Tablets 1000mcg 1 by Unknown /0000 mouth every day Vitamin C Active Tablets 500mg 1 by Unknown /0000 mouth every day Vitamin D3 Active Capsules 1000Unit 1 by Unknown /0000 mouth every day Warfarin Sodium Active Tablets 5mg 1 tab by Unknown /0000 mouth daily. as directed (managed by Dr. Ventura) Flax Seed Oil Active Capsules 1000mg 1 by Unknown /0000 mouth bid Acetaminophen Active 2 tabs by Unknown /0000 mouth once a day as needed Magnesium Active Capsules 500mg once a Unknown /0000 day Losartan Active Tablets 25mg 180ta 1 tab by Fei [place] / bs mouth F. twice Mauser, daily M.D. Clopidogrel 01/17 Hx Tablets 75mg 90tab 1 by Deb García s mouth Keyshawn, - every day N.P. 01/27 Plavix 12/19 Hx Tablets 75mg 30tab 1 by Deb Clemons s mouth Keyshawn, - every day N.P. 12/23 Percocet 08/21 Hx Tablets 5-325mg 90tab 1-2 by Maddison s mouth Russell, - every 4-6 M.D. 10/08 hours needed pain Colace 08/21 Hx Capsules 100mg 90cap 1 tab by Maddison s mouth 2-3 Russell, - times a M.D. 10/08 day needed Amlodipine 08/18 Hx Tablets 2.5mg 1 by Fei Bellaylate mouth F. - every day Mauser, 08/18 M.D. Amlodipine 08/18 Hx Tablets 2.5mg 1 by Fei Bellaylate mouth F. - every day Mauser, 08/21 M.D. Amlodipine 08/18 Hx Tablets 2.5mg 90tab 1 by Fei Hogue s mouth F. - every day Mauser, 10/17 M.D. Cane - 4 Prong 04/07 Hx M17.0 Maddison Russell, - M.D. 12/12 Fish Oil 02/23 Hx Capsules 1000mg 1 by mouth Ordering - every day Provider 03/22 Amlodipine 02/23 Hx Tablets 2.5mg 100ta 1 by Fei Besylate bs mouth F. - every day Mauser, 05/23 M.D. /2015 Losartan 08/30 Hx Tablets 25mg 90tab 1by mouth Fei Potassium /2012 s every F. - other Mauser, 08/24 day. M.D. Amlodipine 07/26 Hx Tablets 5mg 90tab 1 by Fei Besylate s mouth F. - every day Mauser, 02/23 M.D. Citalopram 07/08 Hx Tablets 10mg 90tab 1 po qd Other Hydrobromide s Ordering - Provider 03/21 Vitamin E 07/08 Hx Capsules 1000Unit 2 po Other daily Ordering - Provider 07/07 Fish Oil 07/08 Hx Capsules 500mg 1 po qd Ordering - Provider 02/23 Lisinopril 07/08 Hx Tablets 5mg 60tab 1 po bid Fei s F. - Mauser, 08/30 M.D. Lisinopril 11/28 Hx Tablets 5mg 90tab 1 po qd Fei s F. - Mauser, 07/08 M.D. Lisinopril 11/09 Hx Tablets 2.5mg 30tab 1 po qd s F. - Mauser, 11/28.D. Potassium 07/06 Hx 20Meq 36uni 1 po Fei Chloride ts sunday, . - sunday Mauser, 08/25 and M.D. Sunday Potassium 01/26 Hx Fei Chloride F. - Mauser, 07/06 M.D. Atenolol 01/18 Hx Tablets 25mg 1/2 po Fei qod until 01.26. Mauser, 02/16 and then M.D. /2008 discontin ue Potassium 01/05 Hx Tablet 20Meq 90tab 1 po qd Fei Chloride s F. - Mauser, 01/26 M.D. Atenolol 12/18 Hx Tablets 25mg 90tab 1/2 po qd Fei s F. - Mauser, 01/18 M.D. Cardizem CD 12/16 Hx Caps ER 120mg 100ca 1 po qd 24HR ps on hold Moriah Polanco, 11/08 M.D. Atenolol 12/16 Hx Tablets 25mg 90tab 1 po qd s AashishHeavenly Ngo Deionshayy, 12/18 M.D. Warfarin Sodium Hx Tablets 5mg 100ta 1 tablet Unknown /0000 bs daily - 12/12 Atenolol Hx Tablets 25mg 30tab 2 po qd Unknown /0000 s - 12/16 Lipitor Hx Tablets 10mg 30tab 1 po qhs Unknown /0000 s - 02/23 Vitamin B Complex Hx one qd Unknown /0000 - 02/16 Calcium/MG/Vit D Hx 600mg 1 po qd Unknown /0000 - 03/21 Vitamin D Hx two po qd Unknown /0000 - 12/23 [place] 3 Hx 1000mg one po qd Unknown /0000 - 07/08 Hydrochlorothiazi Hx Tablets 25mg 1 qam Unknown de /0000 - 12/16 Tylenol Hx Tablets Unspecified 2 q am, & Unknown /0000 Dose 2qhs for - arthritis 03/21 Flaxseed Oil Hx Capsules 1000mg 1 po qd Unknown /0000 - 01/09 Amlodipine Hx Tablets 2.5mg 1 by Unknown Besylate /0000 mouth - every day 08/21 Medications Administered in Office Medication Date Status Form Strength Qnty SIG Indications Ordering Provider Depomedrol Administered Injection Maddison 40MG Franklyn Wells M.D. Depomedrol Administered Injection Maddison 40MG 018 Jeremiah Wells Depomedrol Administered Injection Maddison 40MG 017 Jeremiah Wells Depomedrol Administered Injection Maddison 40MG Brain Wells M.D. Synvisc Or Administered Injection B Synvisc-One 017 Prater, Injection 1 MG PA Synvisc Or Administered Injection Maddison Synvisc-One Brain Wells M.D. Injection 1 MG Synvisc Or Administered Injection Maddison Synvisc-One Brain Wells M.D. Injection 1 MG Depomedrol Administered Injection Maddison 40MG 017 Jeremiah Wells Depomedrol Administered Injection Dirk Donis, 40MG Anaid Daniels Depomedrol Administered Injection Maddison 80MG 014 Jeremiah Wells Vital Signs Date Vital Result Comment 01/30/2018 Height 63.5 inches 5'3.50" Weight 155.38 lb W/ Shoes Heart Rate 76 /min BP Systolic 142 mmHg left arm BP Diastolic 78 mmHg left arm BP Systolic Sitting 139 mmHg Home Unit BP Diastolic Sitting 86 mmHg Home Unit BMI (Body Mass Index) 27.1 kg/m2 Ejection Fraction 60-65% ECHO 12/26/17 01/28/2018 Height 63.5 inches 5'3.50" Heart Rate 68 /min 81 home unit, not accurate. BP Systolic 170 mmHg Ra, reg BP Diastolic 94 mmHg Ra, reg BP Systolic Sitting 164 mmHg LA, reg BP Diastolic Sitting 84 mmHg LA, reg BP Systolic Recheck 176 mmHg home unit not accurate BP Diastolic Recheck 101 mmHg home unit not accurate 01/23/2018 Height 63.5 inches 5'3.50" Weight 158.00 lb Heart Rate 64 /min BP Systolic Sitting 162 mmHg Ra< reg BP Diastolic Sitting 94 mmHg Ra< reg BP Systolic Standing 164 mmHg la repeat sit BP Diastolic Standing 92 mmHg la repeat sit BMI (Body Mass Index) 27.5 kg/m2 Ejection Fraction 60%-65% 12/26/17 echo 12/13/2017 Height 63.5 inches 5'3.50" Weight 155.00 lb Heart Rate 76 /min BP Systolic 140 mmHg right arm BP Diastolic 86 mmHg right arm BMI (Body Mass Index) 27.0 kg/m2 Ejection Fraction 55-60% Closer to 60 %. Echocardiogram 08/22/2017 12/12/2017 Height 63.5 inches 5'3.50" Weight 63.00 lb BP Systolic 140 mmHg BP Diastolic 88 mmHg Body Temperature 97.7 F BMI (Body Mass Index) 11.1 kg/m2 10/23/2017 Height 63 inches 5'3" Weight 158.00 lb With Shoes Heart Rate 72 /min BP Systolic Sitting 152 mmHg Lue Reg Cuff BP Diastolic Sitting 80 mmHg Lue Reg Cuff BMI (Body Mass Index) 28.0 kg/m2 Ejection Fraction 55-60% Stress ECHO 10/17/17 08/15/2017 Height 63 inches 5'3" Weight 159.75 lb w/shoes Heart Rate 58 /min BP Systolic Sitting 130 mmHg L/A Reg Cuff BP Diastolic Sitting 76 mmHg L/A Reg Cuff BMI (Body Mass Index) 28.3 kg/m2 Ejection Fraction 55-60% echo 07/24/2016 07/16/2017 Height 63 inches 5'3" Weight 159.00 lb Heart Rate 80 /min BP Systolic 120 mmHg BP Diastolic 74 mmHg Pain Level 0 BMI (Body Mass Index) 28.2 kg/m2 06/20/2017 Height 63 inches 5'3" Weight 160.00 lb BP Systolic 108 mmHg BP Diastolic 64 mmHg Body Temperature 97.6 F BMI (Body Mass Index) 28.3 kg/m2 06/15/2017 Height 62.75 inches 5'2.75" Weight 173.38 lb w/shoes Heart Rate 64 /min BP Systolic 138 mmHg L/Arm Reg Cuff BP Diastolic 80 mmHg L/Arm Reg Cuff BP Systolic Sitting 125 mmHg la repeat sitting BP Diastolic Sitting 82 mmHg la repeat sitting BMI (Body Mass Index) 31.0 kg/m2 Ejection Fraction 55-60% Echocardiogram 07/24/2016 03/12/2017 Height 62.75 inches 5'2.75" Weight 169.00 lb BP Systolic 108 mmHg BP Diastolic 72 mmHg Respiratory Rate 14 /min Body Temperature 97.1 F Pain Level 4 BMI (Body Mass Index) 30.2 kg/m2 11/20/2016 Height 62.75 inches 5'2.75" Heart Rate 71 /min BP Systolic 117 mmHg BP Diastolic 83 mmHg Body Temperature 97.5 F Pain Level 0 10/24/2016 Height 62.75 inches 5'2.75" Weight 169.75 lb w/shoes Heart Rate 68 /min BP Systolic Sitting 148 mmHg LA reg cuff BP Diastolic Sitting 84 mmHg LA reg cuff BP Systolic Standing 138 mmHg larepeat sit BP Diastolic Standing 82 mmHg larepeat sit BMI (Body Mass Index) 30.3 kg/m2 Ejection Fraction 55-60% Stress Test 08/18/16 10/09/2016 Height 62.75 inches 5'2.75" Weight 167.00 lb Heart Rate 64 /min BP Systolic 118 mmHg BP Diastolic 74 mmHg Pain Level 0 BMI (Body Mass Index) 29.8 kg/m2 09/11/2016 Height 62.5 inches 5'2.50" Weight 170.00 lb Heart Rate 72 /min BP Systolic 118 mmHg BP Diastolic 74 mmHg Respiratory Rate 14 /min Body Temperature 97.8 F Pain Level 1 BMI (Body Mass Index) 30.6 kg/m2 08/22/2016 Height 62.5 inches 5'2.50" Heart Rate 72 /min BP Systolic Sitting 128 mmHg LA, regular BP Diastolic Sitting 82 mmHg LA, regular BP Systolic Standing 127 mmHg LA, regular home unit BP Diastolic Standing 85 mmHg LA, regular home unit 08/21/2016 Height 62.5 inches 5'2.50" Weight 170.00 lb Heart Rate 81 /min BP Systolic 123 mmHg BP Diastolic 80 mmHg Body Temperature 97.9 F BMI (Body Mass Index) 30.6 kg/m2 07/24/2016 Height 62.5 inches 5'2.50" Weight 165.00 lb Heart Rate 74 /min BP Systolic 121 mmHg BP Diastolic 79 mmHg Body Temperature 98.3 F BMI (Body Mass Index) 29.7 kg/m2 06/12/2016 Height 64 inches 5'4" Weight 168.00 lb with shoes Heart Rate 70 /min BP Systolic Sitting 130 mmHg LA reg cuff BP Diastolic Sitting 78 mmHg LA reg cuff BMI (Body Mass Index) 28.8 kg/m2 Ejection Fraction 60% - 65% echo 12/28/08 06/12/2016 Height 64 inches 5'4" Weight 163.00 lb Heart Rate 72 /min Respiratory Rate 17 /min Body Temperature 97.5 F Pain Level 1 BMI (Body Mass Index) 28.0 kg/m2 06/05/2016 Height 64 inches 5'4" Weight 163.00 lb BP Systolic 122 mmHg BP Diastolic 70 mmHg Respiratory Rate 16 /min Pain Level 0 BMI (Body Mass Index) 28.0 kg/m2 05/29/2016 Height 64 inches 5'4" Weight 163.00 lb Heart Rate 91 /min BP Systolic 123 mmHg BP Diastolic 80 mmHg Pain Level 8 BMI (Body Mass Index) 28.0 kg/m2 05/15/2016 Height 64 inches 5'4" Weight 164.00 lb Heart Rate 88 /min BP Systolic 118 mmHg BP Diastolic 82 mmHg Pain Level 8 BMI (Body Mass Index) 28.1 kg/m2 05/08/2016 Height 64 inches 5'4" Weight 165.00 lb Heart Rate 60 /min BP Systolic 120 mmHg BP Diastolic 70 mmHg Respiratory Rate 16 /min Pain Level 5 only when walking BMI (Body Mass Index) 28.3 kg/m2 05/24/2015 Height 64 inches 5'4" Weight 165.00 lb Pain Level 4 with specific movements BMI (Body Mass Index) 28.3 kg/m2 04/07/2015 Height 63.5 inches 5'3.50" Weight 165.00 lb Heart Rate 64 /min BP Systolic 130 mmHg BP Diastolic 88 mmHg BMI (Body Mass Index) 28.8 kg/m2 03/22/2015 Height 64 inches 5'4" Weight 168.00 lb with shoes Heart Rate 68 /min BP Systolic Sitting 132 mmHg Ra reg cuff BP Diastolic Sitting 88 mmHg Ra reg cuff BP Systolic Standing 130 mmHg Ra reg cuff BP Diastolic Standing 80 mmHg Ra reg cuff Respiratory Rate 16 /min BMI (Body Mass Index) 28.8 kg/m2 Ejection Fraction 60-65% date 12/28/2008 ECHO 04/08/2014 Height 64 inches 5'4" Weight 165.00 lb Pain Level 0 BMI (Body Mass Index) 28.3 kg/m2 03/06/2014 Height 64 inches 5'4" Weight 165.00 lb with clothes.. Heart Rate 59 /min BP Systolic Sitting 130 mmHg BP Diastolic Sitting 78 mmHg BMI (Body Mass Index) 28.3 kg/m2 02/23/2014 Height 64 inches 5'4" Weight 166.00 lb Heart Rate 70 /min BP Systolic Sitting 138 mmHg BP Diastolic Sitting 82 mmHg BMI (Body Mass Index) 28.5 kg/m2 01/09/2013 Height 64 inches 5'4" Weight 166.00 lb Heart Rate 84 /min BP Systolic Sitting 162 mmHg BP Diastolic Sitting 90 mmHg BP Systolic Standing 129 mmHg repeat BP Diastolic Standing 86 mmHg repeat Respiratory Rate 16 /min BMI (Body Mass Index) 28.5 kg/m2 07/18/2012 Height 64 inches 5'4" Weight 165.00 lb Heart Rate 84 /min BP Systolic Sitting 150 mmHg auto: 151/101 BP Diastolic Sitting 96 mmHg auto: 151/101 Respiratory Rate 16 /min BMI (Body Mass Index) 28.3 kg/m2 07/08/2012 Height 64 inches 5'4" Weight 163.25 lb Heart Rate 72 /min Irregular BP Systolic Sitting 152 mmHg BP Diastolic Sitting 98 mmHg BMI (Body Mass Index) 28.0 kg/m2 11/29/2011 Height 64 inches 5'4" Weight 168.00 lb Heart Rate 76 /min manual home unit 74 BP Systolic 152 mmHg manual home unit 158/100 BP Diastolic 96 mmHg manual home unit 158/100 BMI (Body Mass Index) 28.8 kg/m2 07/03/2011 Height 64 inches 5'4" Weight 171.00 lb Heart Rate 74 /min BP Systolic 120 mmHg BP Diastolic 72 mmHg Respiratory Rate 16 /min BMI (Body Mass Index) 29.3 kg/m2 08/31/2010 Height 64 inches 5'4" Weight 177.00 lb Heart Rate 76 /min BP Systolic Sitting 132 mmHg BP Diastolic Sitting 90 mmHg BMI (Body Mass Index) 30.4 kg/m2 03/21/2010 Height 64 inches 5'4" Weight 176.00 lb Heart Rate 78 /min BP Systolic Sitting 130 mmHg BP Diastolic Sitting 84 mmHg BP Systolic Standing 120 mmHg BP Diastolic Standing 80 mmHg BMI (Body Mass Index) 30.2 kg/m2 11/25/2009 Height 64 inches 5'4" Weight 175.00 lb Heart Rate 68 /min BP Systolic Sitting 124 mmHg BP Diastolic Sitting 82 mmHg BMI (Body Mass Index) 30.0 kg/m2 10/27/2009 Height 64 inches 5'4" Weight 172.00 lb Heart Rate 74 /min BP Systolic Sitting 120 mmHg L BP Diastolic Sitting 84 mmHg L BMI (Body Mass Index) 29.5 kg/m2 02/23/2009 Height 64 inches 5'4" Weight 172.00 lb Heart Rate 85 /min BP Systolic Sitting 124 mmHg BP Diastolic Sitting 80 mmHg BMI (Body Mass Index) 29.5 kg/m2 02/16/2009 Height 64 inches 5'4" Weight 172.00 lb Heart Rate 67 /min BP Systolic Sitting 128 mmHg BP Diastolic Sitting 90 mmHg BMI (Body Mass Index) 29.5 kg/m2 01/18/2009 Height 64 inches 5'4" Weight 172.00 lb Heart Rate 67 /min BP Systolic Sitting 124 mmHg BP Diastolic Sitting 80 mmHg BMI (Body Mass Index) 29.5 kg/m2 12/16/2008 Height 64 inches 5'4" Weight 169.00 lb Heart Rate 76 /min BP Systolic Sitting 102 mmHg L BP Diastolic Sitting 70 mmHg L BMI (Body Mass Index) 29.0 kg/m2 Results Test Date Test Result H/L Range Note Laboratory test finding 12/27/2017 TSH (Thyroid Stim 0.94 mcIU/mL 0.34- 5.60 Horm) Iron & Iron Binding 12/27/2017 Iron 65 g/dL 50-212 Capacity Unsaturated Iron Binding 254 g/dL Total Iron Binding Capacity 319 g/dL 250-450 Transferrin 228 mg/dL 203-362 % Iron Saturation 20 % 15-55 Comp Metabolic Panel 12/27/2017 Sodium 141 mmol/L 135-145 Potassium 4.1 mmol/L 3.5-5.0 Chloride 105 mmol/L 101-111 Co2 Carbon Dioxide 29 mmol/L 22-32 Anion Gap 7 mmol/L 2-11 Glucose 103 mg/dL High 70-100 Blood Urea Nitrogen 28 mg/dL High 6-24 Creatinine 0.80 mg/dL 0.51-0.95 BUN/Creatinine Ratio 35.0 High 8-20 Calcium 9.3 mg/dL 8.6-10.3 Total Protein 6.6 g/dL 6.4-8.9 Albumin 4.0 g/dL 3.2-5.2 Globulin 2.6 g/dL 2-4 Albumin/Globulin Ratio 1.5 1-3 Total Bilirubin 0.80 mg/dL 0.2-1.0 Alkaline Phosphatase 79 U/L 34-104 Alt 14 U/L 7-52 Ast 17 U/L 13-39 Egfr Non- 67.7 >60 Egfr 81.9 >60 1 CBC Auto Diff 12/27/2017 White Blood Count 5.3 10^3/uL 3.5-10.8 Red Blood Count 4.54 10^6/uL 4.00-5.40 Hemoglobin 14.7 g/dL 12.0-16.0 Hematocrit 44 % 35-47 Mean Corpuscular Volume 97 fL 80-97 Mean Corpuscular Hemoglobin 32 pg High 27-31 Mean Corpuscular HGB Conc 34 g/dL 31-36 Red Cell Distribution Width 14 % 10.5-15 Platelet Count 136 10^3/uL Low 150-450 Mean Platelet Volume 8.9 um3 7.4-10.4 Abs Neutrophils 3.6 10^3/uL 1.5-7.7 Abs Lymphocytes 1.0 10^3/uL 1.0-4.8 Abs Monocytes 0.5 10^3/uL 0-0.8 Abs Eosinophils 0.1 10^3/uL 0-0.6 Abs Basophils 0 10^3/uL 0-0.2 Abs Nucleated RBC 0 10^3/uL Granulocyte % 69.1 % 38-83 Lymphocyte % 18.5 % Low 25-47 Monocyte % 9.4 % High 0-7 Eosinophil % 2.4 % 0-6 Basophil % 0.6 % 0-2 Nucleated Red Blood Cells % 0.1 Inr/Protime 11/26/2017 Inr 1.09 High 0.77-1.02 Lipid Panel - [facility] 08/15/2017 Creatine Kinase(CK) 49 U/L 10-223 2 Comp Metabolic Panel 08/15/2017 Sodium 140 mmol/L 139-145 Potassium 3.9 mmol/L 3.5-5.0 Chloride 102 mmol/L 101-111 Co2 Carbon Dioxide 30 mmol/L 22-32 Anion Gap 8 mmol/L 2-11 Glucose 112 mg/dL High 70-100 Blood Urea Nitrogen 23 mg/dL 6-24 Creatinine 0.78 mg/dL 0.51-0.95 BUN/Creatinine Ratio 29.5 High 8-20 Calcium 9.3 mg/dL 8.6-10.3 Total Protein 6.8 g/dL 6.4-8.9 Albumin 4.1 g/dL 3.2-5.2 Globulin 2.7 g/dL 2-4 Albumin/Globulin Ratio 1.5 1-3 Total Bilirubin 0.80 mg/dL 0.2-1.0 Alkaline Phosphatase 55 U/L 34-104 Alt 18 U/L 7-52 Ast 18 U/L 13-39 Egfr Non- 69.7 >60 Egfr 89.6 >60 3 Lipid Profile (Trig/Chol/HDL) 08/15/2017 Triglycerides 87 mg/dL 4 Cholesterol 158 mg/dL 5 HDL Cholesterol 65.4 mg/dL 6 LDL Cholesterol 75 mg/dL 7 CBC Auto Diff 08/15/2017 White Blood Count 5.3 10^3/uL 3.5-10.8 Red Blood Count 4.57 10^6/uL 4.0-5.4 Hemoglobin 15.1 g/dL 12.0-16.0 Hematocrit 44 % 35-47 Mean Corpuscular Volume 97 fL 80-97 Mean Corpuscular Hemoglobin 33 pg High 27-31 Mean Corpuscular HGB Conc 34 g/dL 31-36 Red Cell Distribution Width 14 % 10.5-15 Platelet Count 175 10^3/uL 150-450 Mean Platelet Volume 9.2 um3 7.4-10.4 Abs Neutrophils 3.4 10^3/uL 1.5-7.7 Abs Lymphocytes 1.2 10^3/uL 1.0-4.8 Abs Monocytes 0.5 10^3/uL 0-0.8 Abs Eosinophils 0.1 10^3/uL 0-0.6 Abs Basophils 0 10^3/uL 0-0.2 Abs Nucleated RBC 0 10^3/uL Granulocyte % 65.5 % 38-83 Lymphocyte % 21.9 % Low 25-47 Monocyte % 9.8 % High 0-7 Eosinophil % 2.3 % 0-6 Basophil % 0.5 % 0-2 Nucleated Red Blood Cells % 0.1 Laboratory test finding 08/15/2017 Magnesium 1.9 mg/dL 1.9-2.7 8 Troponin I 0.01 ng/mL <0.04 9 Inr/Protime 08/21/2016 Inr 2.98 High 0.89-1.11 10 CBC No Diff 08/21/2016 White Blood Count 6.0 10^3/uL 3.5-10.8 10 Red Blood Count 4.45 10^6/uL 4.0-5.4 10 Hemoglobin 14.2 g/dL 12.0-16.0 10 Hematocrit 43 % 35-47 10 Mean Corpuscular Volume 96 fL 80-97 10 Mean Corpuscular Hemoglobin 32 pg High 27-31 10 Mean Corpuscular HGB Conc 33 g/dL 31-36 10 Red Cell Distribution Width 14 % 10.5-15 10 Platelet Count 159 10^3/uL 150-450 10 Mean Platelet Volume 9 um3 7.4-10.4 10 Laboratory test 08/21/2016 Partial Thrombo 42.5 seconds High 26.0-36.3 10 , 11 finding Time PTT Comp Metabolic Panel 08/21/2016 Sodium 140 mmol/L 133-145 10 Potassium 4.3 mmol/L 3.5-5.0 10 Chloride 102 mmol/L 101-111 10 Co2 Carbon Dioxide 28 mmol/L 22-32 10 Anion Gap 10 mmol/L 2-11 10 Glucose 89 mg/dL 70-100 10 Blood Urea Nitrogen 14 mg/dL 6-24 10 Creatinine 0.84 mg/dL 0.51-0.95 10 BUN/Creatinine Ratio 16.7 8-20 10 Calcium 9.5 mg/dL 8.6-10.3 10 Total Protein 7.1 g/dL 6.4-8.9 10 Albumin 4.2 g/dL 3.2-5.2 10 Globulin 2.9 g/dL 2-4 10 Albumin/Globulin Ratio 1.4 1-3 10 Total Bilirubin 1.10 mg/dL High 0.2-1.0 10 Alkaline Phosphatase 73 U/L 34-104 10 Alt 15 U/L 7-52 10 Ast 17 U/L 13-39 10 Egfr Non- 64.1 >60 10 Egfr 82.5 >60 10, 12 Urinalysis Profile 08/21/2016 Urine Color Yellow 10 Urine Appearance Clear 10 Urine Specific [place] 1.014 1.010-1.030 10 Urine pH 5.0 5-9 10 Urine Urobilinogen Negative Negative 10 Urine Ketones Negative Negative 10 Urine Protein Negative Negative 10 Urine Leukocytes 3+ Negative 10 Urine Blood Negative Negative 10 * * Negative 10, 13 Urine Nitrite Negative Negative 10 Urine Bilirubin Negative Negative 10 Urine Glucose Negative Negative 10 Urine White Blood Cell 3+(>20/hpf) Absent 10 Urine Red Blood Cell Absent Absent 10 Urine Bacteria Absent Absent 10 Urine Squamous Epithelial Cell Present Absent 10 Type & Screen 08/21/2016 Patient Blood Type A Positive 10 Antibody Screen NEGATIVE 10 Urine Culture And 08/21/2016 Urine Culture SEE RESULT BELOW 10, 14 Sensitivities Lipid Panel - [facility] 01/08/2013 Creatine Kinase 68 U/L 0-200 15 Comp Metabolic Panel 01/08/2013 Sodium 140 mmol/L 133-145 Potassium 3.9 mmol/L 3.5-5.0 Chloride 104 mmol/L 101-111 Co2 Carbon Dioxide 29.0 mmol/L 22-32 Anion Gap 7.0 mmol/L 2-11 Glucose 103 mg/dL High 70-100 Blood Urea Nitrogen 15 mg/dL 6-24 Creatinine 0.80 mg/dL 0.50-1.40 BUN/Creatinine Ratio 18.8 8-20 Calcium 9.1 mg/dL 8.1-9.9 Total Protein 6.3 g/dL 6.2-8.1 Albumin 3.9 g/dL 3.2-5.2 Globulin 2.4 g/dL 2-4 Albumin/Globulin Ratio 1.6 1-3 Total Bilirubin 1.2 mg/dL 0.4-1.5 Alkaline Phosphatase 62 U/L 30-110 Alt 16 U/L 14-54 Ast 20 U/L 12-42 Egfr Non- 68.5 >60 Egfr 88.1 >60 16 Lipid Profile (Trig/Chol/HDL) 01/08/2013 Triglycerides 75 mg/dL 40-200 Cholesterol 173 mg/dL Less than 200 HDL Cholesterol 64 mg/dL High 40-60 17 Cholesterol/HDL Ratio 2.7 Average 1-4.44 LDL Cholesterol 94.0 Less Than 100 18 Lipid Panel - [facility] 01/09/2012 Creatine Kinase 76 U/L 0-200 19 Comp Metabolic Panel 01/09/2012 Sodium 139 mmol/L 133-145 Potassium 4.4 mmol/L 3.5-5.0 Chloride 107 mmol/L 101-111 Co2 Carbon Dioxide 27.0 mmol/L 22-32 Anion Gap 5.0 mmol/L 2-11 Glucose 101 mg/dL High 70-100 Blood Urea Nitrogen 16 mg/dL 6-24 Creatinine 0.80 mg/dL 0.50-1.40 BUN/Creatinine Ratio 20.0 8-20 Calcium 9.3 mg/dL 8.1-9.9 Total Protein 6.0 GM/DL Low 6.2-8.1 Albumin 3.8 GM/DL 3.2-5.2 Globulin 2.2 GM/DL 2-4 Albumin/Globulin Ratio 1.7 1-3 Total Bilirubin 1.1 mg/dL High 0.1-1.0 20 Alkaline Phosphatase 50 U/L 30-110 Alt 14 U/L 14-54 Ast 17 U/L 12-42 Egfr Non- 68.7 >60 Egfr 88.3 >60 21 Lipid Profile (Trig/Chol/HDL) 01/09/2012 Triglycerides 62 mg/dL 40-200 Cholesterol 151 mg/dL Less than 200 22 HDL Cholesterol 55 mg/dL 40-60 23 Cholesterol/HDL Ratio 2.8 AVERAGE 1-4.44 LDL Cholesterol 83.6 mg/dL Less Than 100 Basic Metabolic Panel 12/19/2011 Sodium 141 mmol/L 135-145 Potassium 4.7 mmol/L 3.5-5.0 Chloride 103 mmol/L 101-111 Co2 (Carbon Dioxide) 31.0 mmol/L 22-32 Anion Gap 7.0 mmol/L 2-11 24 Glucose 83 mg/dL 70-100 BUN 18 mg/dL 6-24 Creatinine 0.9 mg/dL 0.50-1.40 One Over Creatinine 1.11 BUN/Creatinine Ratio 20.0 8-20 Calcium 9.4 mg/dL 8.1-9.9 eGFR Non- 59.9 > 60 eGFR 77.1 > 60 25 Basic Metabolic Panel 11/23/2011 Sodium 142 mmol/L 135-145 Potassium 4.6 mmol/L 3.5-5.0 Chloride 108 mmol/L 101-111 Co2 (Carbon Dioxide) 31.0 mmol/L 22-32 Anion Gap 3.0 mmol/L 2-11 26 Glucose 101 mg/dL High 70-100 BUN 18 mg/dL 6-24 Creatinine 0.9 mg/dL 0.50-1.40 One Over Creatinine 1.11 BUN/Creatinine Ratio 20.0 8-20 Calcium 9.6 mg/dL 8.1-9.9 eGFR Non- 59.9 > 60 eGFR 77.1 > 60 27 Comp Metabolic Panel 04/10/2011 Sodium 139 mmol/L 135-145 Potassium 4.1 mmol/L 3.5-5.0 Chloride 106 mmol/L 101-111 Co2 (Carbon Dioxide) 26.0 mmol/L 22-32 Anion Gap 7.0 mmol/L 2-11 28 Glucose 99 mg/dL 70-100 BUN 17 mg/dL 6-24 Creatinine 0.9 mg/dL 0.50-1.40 One Over Creatinine 1.11 BUN/Creatinine Ratio 18.9 8-20 Calcium 9.3 mg/dL 8.1-9.9 Total Protein 6.2 GM/DL 6.2-8.1 Albumin 3.9 GM/DL 3.2-5.2 Globulin 2.3 GM/DL 2-4 Albumin/Globulin Ratio 1.7 1-3 Bilirubin Total 1.5 mg/dL 0.4-1.5 29 Alkaline Phosphatase 52 U/L 30-110 Alt (SGPT) 15 U/L 14-54 Ast (Sgot) 17 U/L 12-42 eGFR Non- 60.1 > 60 eGFR 77.3 > 60 30 Lipid Profile (Trig/Chol/HDL) 04/10/2011 Triglyceride 87 mg/dL 40-200 Cholesterol 162 mg/dL Less Than 200 31 High Density Lipoprotein 57 mg/dL 40-60 32 Cholesterol/HDL Ratio 2.84 AVERAGE 1-4.44 Low Density Lipoprotein 88 mg/dL Less Than 100 33 Laboratory test finding 04/10/2011 CPK (Creatine Kinase) 70 U/L 0-170 Basic Metabolic Panel 08/24/2010 Sodium 137 mmol/L 135-145 Potassium 4.7 mmol/L 3.5-5.0 Chloride 104 mmol/L 101-111 Co2 (Carbon Dioxide) 27.0 mmol/L 22-32 Anion Gap 6.0 mmol/L 2-11 34 Glucose 115 mg/dL High 70-100 BUN 15 mg/dL 6-24 Creatinine 0.90 mg/dL 0.50-1.40 One Over Creatinine 1.10 BUN/Creatinine Ratio 16.7 8-20 Calcium 9.3 mg/dL 8.1-9.9 eGFR Non- 60.1 > 60 eGFR 77.3 > 60 35 Lipid Panel - [facility] 07/04/2010 CPK (Creatine Kinase) 83 U/L 0-170 Comp Metabolic Panel 07/04/2010 Sodium 140 mmol/L 135-145 Potassium 3.8 mmol/L 3.5-5.0 Chloride 108 mmol/L 101-111 Co2 (Carbon Dioxide) 25.0 mmol/L 22-32 Anion Gap 7.0 mmol/L 2-11 36 Glucose 101 mg/dL High 70-100 BUN 13 mg/dL 6-24 Creatinine 0.80 mg/dL 0.50-1.40 One Over Creatinine 1.20 BUN/Creatinine Ratio 16.3 8-20 Calcium 9.1 mg/dL 8.1-9.9 Total Protein 6.1 GM/DL Low 6.2-8.1 Albumin 3.9 GM/DL 3.2-5.2 Globulin 2.2 GM/DL 2-4 Albumin/Globulin Ratio 1.8 1-3 Bilirubin Total 1.4 mg/dL 0.4-1.5 37 Alkaline Phosphatase 49 U/L 30-110 Alt (SGPT) 17 U/L 14-54 Ast (Sgot) 17 U/L 12-42 eGFR Non- 68.8 > 60 eGFR 88.5 > 60 38 Lipid Profile (Trig/Chol/HDL) 07/04/2010 Triglyceride 70 mg/dL 40-200 Cholesterol 148 mg/dL Less Than 200 39 High Density Lipoprotein 63 mg/dL High 40-60 40 Cholesterol/HDL Ratio 2.35 AVERAGE 1-4.44 Low Density Lipoprotein 71 mg/dL Less Than 100 41 Lipid Panel - [facility] 11/05/2009 CPK (Creatine Kinase) 50 U/L 0-170 Comp Metabolic Panel 11/05/2009 Sodium 138 mmol/L 135-145 Potassium 4.0 mmol/L 3.5-5.0 Chloride 105 mmol/L 101-111 Co2 (Carbon Dioxide) 27.0 mmol/L 22-32 Anion Gap 6.0 mmol/L 2-11 42 Glucose 94 mg/dL 70-100 43 BUN 16 mg/dL 6-24 Creatinine 0.80 mg/dL 0.50-1.40 One Over Creatinine 1.20 BUN/Creatinine Ratio 20.0 8-20 Calcium 8.7 mg/dL 8.1-9.9 44 Total Protein 5.9 GM/DL Low 6.2-8.1 Albumin 3.6 GM/DL 3.2-5.2 Globulin 2.3 GM/DL 2-4 Albumin/Globulin Ratio 1.6 1-3 Bilirubin Total 1.0 mg/dL 0.4-1.5 45 Alkaline Phosphatase 46 U/L 30-110 Alt (SGPT) 19 U/L 14-54 Ast (Sgot) 17 U/L 12-42 eGFR Non- 73.4 > 60 eGFR 88.8 > 60 46 Lipid Profile (Trig/Chol/HDL) 11/05/2009 Triglyceride 76 mg/dL 40-200 Cholesterol 171 mg/dL Less Than 200 47 High Density Lipoprotein 52 mg/dL 40-60 48 Cholesterol/HDL Ratio 3.29 AVERAGE 1-4.44 Low Density Lipoprotein 104 mg/dL High Less Than 100 49 CBC With Electronic Diff 11/05/2009 White Blood Count 5.3 CUMM 4.8-10.8 Red Cell Count 4.57 CUMM 4.2-5.4 Hemoglobin 15.2 g/dL 12.0-16.0 Hematocrit 44 % 35-47 Mean Corpuscular Volume 97 um3 79-97 Mean Corpuscular Hemoglob 33 pg High 27-31 Mean Corpuscular HGB Cone 34 g/dL 32-36 Redcell Distribution WDTH 15 % 10.5-15 Platelet Count 222 CUMM 150-450 Mean Platelet Volume 7.0 um3 Low 7.4-10.4 Gran % 58.6 % 38-83 Lymph % 30.1 % 25-47 Mononuclear % 9.0 % 1-9 Eosinophil % 1.9 % 0-6 Basophil % 0.4 % 0-2 Abs Lymphs 1.6 1.0-4.8 Abs Mononuclear 0.5 0-0.8 Absolute Neutrophil Count 3.1 1.5-7.7 Abs Eosinophils 0.1 0-0.6 Abs Basophils 0 0-0.2 Laboratory test finding 11/05/2009 BNP Evaluatr 200.0 pg/mL High 0-100 Laboratory test finding 01/26/2009 Potassium 4.9 mmol/L 3.5-5.0 Basic Metabolic Panel Stat 01/05/2009 Sodium 142 mmol/L 135-145 Potassium 3.7 mmol/L 3.5-5.0 Chloride 108 mmol/L 101-111 Co2 (Carbon Dioxide) 27.0 mmol/L 22-32 Anion Gap 7.0 mmol/L 2-11 50 Glucose 112 mg/dL High 70-100 51 BUN 14 mg/dL 6-24 Creatinine 0.80 mg/dL 0.50-1.40 One Over Creatinine 1.20 BUN/Creatinine Ratio 17.5 8-20 Calcium 8.6 mg/dL 8.1-9.9 52 eGFR Non- 73.5 > 60 eGFR 89.0 > 60 53 Protime Stat 01/05/2009 Inr 2.41 High 0.86-1.13 54 Protime 27.3 SEC High 10.7-13.6 55 1 Because ethnic data is not always readily available, this report includes an eGFR for both -Americans and non- Americans. The National Kidney Disease Education Program (NKDEP) does not endorse the use of the MDRD equation for patients that are not between the ages of 18 and 70, are , have extremes of body size, muscle mass, or nutritional status, or are non- or non-. According to the National Kidney Foundation, irrespective of diagnosis, the stage of the disease is based on the level of kidney function: Stage Description GFR(mL/min/1.73 m(2)) 1 Kidney damage with normal or decreased GFR 90 2 Kidney damage with mild decrease in GFR 60-89 3 Moderate decrease in GFR 30-59 4 Severe decrease in GFR 15-29 5 Kidney failure <15 (or dialysis) 2 CC SEVERO SINGLETON MD [phone] 3 Because ethnic data is not always readily available, this report includes an eGFR for both -Americans and non- Americans. The National Kidney Disease Education Program (NKDEP) does not endorse the use of the MDRD equation for patients that are not between the ages of 18 and 70, are , have extremes of body size, muscle mass, or nutritional status, or are non- or non-. According to the National Kidney Foundation, irrespective of diagnosis, the stage of the disease is based on the level of kidney function: Stage Description GFR(mL/min/1.73 m(2)) 1 Kidney damage with normal or decreased GFR 90 2 Kidney damage with mild decrease in GFR 60-89 3 Moderate decrease in GFR 30-59 4 Severe decrease in GFR 15-29 5 Kidney failure <15 (or dialysis) 4 Desirable: <150 Borderline High: 150-199 High: 200-499 Very High: >500 5 Desirable: <200 Borderline High: 200-239 High: >239 6 Low: <40 Desirable: 40-60 High: >60 7 Desirable: <100 Near Optimal: 100-129 Borderline High: 130-159 High: 160-189 Very High: >189 8 CC SEVERO SINGLETON MD [phone] CC SEVERO SINGLETON MD [phone] [id number] 12 Because ethnic data is not always readily available, this report includes an eGFR for both -Americans and non- Americans. The National Kidney Disease Education Program (NKDEP) does not endorse the use of the MDRD equation for patients that are not between the ages of 18 and 70, are , have extremes of body size, muscle mass, or nutritional status, or are non- or non-. According to the National Kidney Foundation, irrespective of diagnosis, the stage of the disease is based on the level of kidney function: Stage Description GFR(mL/min/1.73 m(2)) 1 Kidney damage with normal or decreased GFR 90 2 Kidney damage with mild decrease in GFR 60-89 3 Moderate decrease in GFR 30-59 4 Severe decrease in GFR 15-29 5 Kidney failure <15 (or dialysis) 13 *Ascorbic acid is present which may interfere with detection of blood. 14 SEE RESULT BELOW Name: MACO COOK : [address]: Maddison Wells MD Acct: [id number] Unit: [id number] AGE: 86 Location: [facility] Re08/21/16 SEX: F Status: REG REF SPEC: [id number] SRAVANI: 08/21/16-[address] [facility] [address]: Maddison Wells MD REQ: [id number] RECD: 08/21/16194 STATUS: COMP _ SOURCE: URINE SPDESC: ORDERED: Urine Culture COMMENTS: [id number] QUERIES: Urine Source: Clean Catch Procedure Result Reported Site Urine Culture Final 08/23/16- 1229 ML No growth of clinically significant organisms * ML - MAIN LAB ([facility]) . END OF REPORT * ML=Testing performed at Main Lab DEPARTMENT OF PATHOLOGY, [address] [place] [address] Raymond Avelar M.D. Director [facility] # [id number] 15 FASTING 16 Because ethnic data is not always readily available, this report includes an eGFR for both -Americans and non- Americans. The National Kidney Disease Education Program (NKDEP) does not endorse the use of the MDRD equation for patients that are not between the ages of 18 and 70, are , have extremes of body size, muscle mass, or nutritional status, or are non- or non-. According to the National Kidney Foundation, irrespective of diagnosis, the stage of the disease is based on the level of kidney function: Stage Description GFR(mL/min/1.73 m(2)) 1 Kidney damage with normal or decreased GFR 90 2 Kidney damage with mild decrease in GFR 60-89 3 Moderate decrease in GFR 30-59 4 Severe decrease in GFR 15-29 5 Kidney failure <15 (or dialysis) 17 HDL Interpretation: Undesirable: High Risk: Less than 40 mg/dL Desirable: Low Risk: Greater than 60 mg/dL 18 LDL Interpretation: Low Risk Optimal Level: LDL Less than 100 mg/dL Near or Above Optimal: LDL 100-129 mg/dL Borderline High Risk: LDL 130-159 mg/dL High Risk: LDL 160-189 mg/dL Very High Risk: LDL Greater than 189 mg/dL 19 FASTING 20 A metabolite of Naproxen, O-desmethylnaproxen, has been shown to interfere with the [place] method for measuring total bilirubin. Samples from patients who have taken Naproxen have shown spurious elevation in total bilirubin levels. 21 Because ethnic data is not always readily available, this report includes an eGFR for both -Americans and non- Americans. The National Kidney Disease Education Program (NKDEP) does not endorse the use of the MDRD equation for patients that are not between the ages of 18 and 70, are , have extremes of body size, muscle mass, or nutritional status, or are non- or non-. According to the National Kidney Foundation, irrespective of diagnosis, the stage of the disease is based on the level of kidney function: Stage Description GFR(mL/min/1.73 m(2)) 1 Kidney damage with normal or decreased GFR 90 2 Kidney damage with mild decrease in GFR 60-89 3 Moderate decrease in GFR 30-59 4 Severe decrease in GFR 15-29 5 Kidney failure <15 (or dialysis) 22 Desirable: Less than 200 MG/DL Borderline-High Risk: 200-239 MG/DL High-Risk: 240 MG/DL and over 23 HDL Interpretation: Undesirable: High Risk: Less than 40 MG/DL Desirable: Low Risk: Greater than 60 MG/DL 24 Anion gap measurement may be of limited value in the presence of any alkalosis, especially in a combined acid base disorder. . 25 Because ethnic data is not always readily available, this report includes an eGFR for both -Americans and non- Americans. The National Kidney Disease Education Program (NKDEP) does not endorse the use of the MDRD equation for patients that are not between the ages of 18 and 70, are , have extremes of body size, muscle mass, or nutritional status, or are non- or non-. According to the National Kidney Foundation, irrespective of diagnosis, the stage of the disease is based on the level of kidney function: Stage Description GFR(mL/min/1.73 m(2)) 1 Kidney damage with normal or decreased GFR 90 2 Kidney damage with mild decrease in GFR 60-89 3 Moderate decrease in GFR 30-59 4 Severe decrease in GFR 15-29 5 Kidney failure <15 (or dialysis) 26 Anion gap measurement may be of limited value in the presence of any alkalosis, especially in a combined acid base disorder. . 27 Because ethnic data is not always readily available, this report includes an eGFR for both -Americans and non- Americans. The National Kidney Disease Education Program (NKDEP) does not endorse the use of the MDRD equation for patients that are not between the ages of 18 and 70, are , have extremes of body size, muscle mass, or nutritional status, or are non- or non-. According to the National Kidney Foundation, irrespective of diagnosis, the stage of the disease is based on the level of kidney function: Stage Description GFR(mL/min/1.73 m(2)) 1 Kidney damage with normal or decreased GFR 90 2 Kidney damage with mild decrease in GFR 60-89 3 Moderate decrease in GFR 30-59 4 Severe decrease in GFR 15-29 5 Kidney failure <15 (or dialysis) 28 Anion gap measurement may be of limited value in the presence of any alkalosis, especially in a combined acid base disorder. . 29 A metabolite of Naproxen, O-desmethylnaproxen, has been shown to interfere with the [place] method for measuring total bilirubin. Samples from patients who have taken Naproxen have shown spurious elevation in total bilirubin levels. 30 Because ethnic data is not always readily available, this report includes an eGFR for both -Americans and non- Americans. The National Kidney Disease Education Program (NKDEP) does not endorse the use of the MDRD equation for patients that are not between the ages of 18 and 70, are , have extremes of body size, muscle mass, or nutritional status, or are non- or non-. According to the National Kidney Foundation, irrespective of diagnosis, the stage of the disease is based on the level of kidney function: Stage Description GFR(mL/min/1.73 m(2)) 1 Kidney damage with normal or decreased GFR 90 2 Kidney damage with mild decrease in GFR 60-89 3 Moderate decrease in GFR 30-59 4 Severe decrease in GFR 15-29 5 Kidney failure <15 (or dialysis) 31 CHOLESTEROL INTERPRETATION: Desirable: Less than 200 MG/DL Borderline-High Risk: 200-239 MG/DL High-Risk: 240 MG/DL and over 32 HDL INTERPRETATION: Undesirable: High Risk: Less than 40 MG/DL Desirable: Low Risk: Greater than 60 MG/DL 33 LDL INTERPRETATION: Low Risk Optimal Level: LDL Less than 100 MG/DL Near or Above Optimal: LDL 100-129 MG/DL Borderline High Risk: LDL 130-159 MG/DL High Risk: LDL 160-189 MG/DL Very High Risk: LDL Greater than 189 MG/DL 34 Anion gap measurement may be of limited value in the presence of any alkalosis, especially in a combined acid base disorder. . 35 Because ethnic data is not always readily available, this report includes an eGFR for both -Americans and non- Americans. The National Kidney Disease Education Program (NKDEP) does not endorse the use of the MDRD equation for patients that are not between the ages of 18 and 70, are , have extremes of body size, muscle mass, or nutritional status, or are non- or non-. According to the National Kidney Foundation, irrespective of diagnosis, the stage of the disease is based on the level of kidney function: Stage Description GFR(mL/min/1.73 m(2)) 1 Kidney damage with normal or decreased GFR 90 2 Kidney damage with mild decrease in GFR 60-89 3 Moderate decrease in GFR 30-59 4 Severe decrease in GFR 15-29 5 Kidney failure <15 (or dialysis) 36 Anion gap measurement may be of limited value in the presence of any alkalosis, especially in a combined acid base disorder. . 37 A metabolite of Naproxen, O-desmethylnaproxen, has been shown to interfere with the [place] method for measuring total bilirubin. Samples from patients who have taken Naproxen have shown spurious elevation in total bilirubin levels. 38 Because ethnic data is not always readily available, this report includes an eGFR for both -Americans and non- Americans. The National Kidney Disease Education Program (NKDEP) does not endorse the use of the MDRD equation for patients that are not between the ages of 18 and 70, are , have extremes of body size, muscle mass, or nutritional status, or are non- or non-. According to the National Kidney Foundation, irrespective of diagnosis, the stage of the disease is based on the level of kidney function: Stage Description GFR(mL/min/1.73 m(2)) 1 Kidney damage with normal or decreased GFR 90 2 Kidney damage with mild decrease in GFR 60-89 3 Moderate decrease in GFR 30-59 4 Severe decrease in GFR 15-29 5 Kidney failure <15 (or dialysis) 39 CHOLESTEROL INTERPRETATION: Desirable: Less than 200 MG/DL Borderline-High Risk: 200-239 MG/DL High-Risk: 240 MG/DL and over 40 HDL INTERPRETATION: Undesirable: High Risk: Less than 40 MG/DL Desirable: Low Risk: Greater than 60 MG/DL 41 LDL INTERPRETATION: Low Risk Optimal Level: LDL Less than 100 MG/DL Near or Above Optimal: LDL 100-129 MG/DL Borderline High Risk: LDL 130-159 MG/DL High Risk: LDL 160-189 MG/DL Very High Risk: LDL Greater than 189 MG/DL 42 Anion gap measurement may be of limited value in the presence of any alkalosis, especially in a combined acid base disorder. . 43 Note change in reference range as of 11/21/07. The change was based on recommendations from the [place] [employer]. 44 Please note change in reference range effective 07 . 45 A metabolite of Naproxen, O-desmethylnaproxen, has been shown to interfere with the [place] method for measuring total bilirubin. Samples from patients who have taken Naproxen have shown spurious elevation in total bilirubin levels. 46 Because ethnic data is not always readily available, this report includes an eGFR for both -Americans and non- Americans. The National Kidney Disease Education Program (NKDEP) does not endorse the use of the MDRD equation for patients that are not between the ages of 18 and 70, are , have extremes of body size, muscle mass, or nutritional status, or are non- or non-. According to the National Kidney Foundation, irrespective of diagnosis, the stage of the disease is based on the level of kidney function: Stage Description GFR(mL/min/1.73 m(2)) 1 Kidney damage with normal or decreased GFR 90 2 Kidney damage with mild decrease in GFR 60-89 3 Moderate decrease in GFR 30-59 4 Severe decrease in GFR 15-29 5 Kidney failure <15 (or dialysis) 47 CHOLESTEROL INTERPRETATION: Desirable: Less than 200 MG/DL Borderline-High Risk: 200-239 MG/DL High-Risk: 240 MG/DL and over 48 HDL INTERPRETATION: Undesirable: High Risk: Less than 40 MG/DL Desirable: Low Risk: Greater than 60 MG/DL 49 LDL INTERPRETATION: Low Risk Optimal Level: LDL Less than 100 MG/DL Near or Above Optimal: LDL 100-129 MG/DL Borderline High Risk: LDL 130-159 MG/DL High Risk: LDL 160-189 MG/DL Very High Risk: LDL Greater than 189 MG/DL 50 Anion gap measurement may be of limited value in the presence of any alkalosis, especially in a combined acid base disorder. . 51 Note change in reference range as of 11/21/07. The change was based on recommendations from the [place] [employer]. 52 Please note change in reference range effective 07 . 53 Because ethnic data is not always readily available, this report includes an eGFR for both -Americans and non- Americans. The National Kidney Disease Education Program (NKDEP) does not endorse the use of the MDRD equation for patients that are not between the ages of 18 and 70, are , have extremes of body size, muscle mass, or nutritional status, or are non- or non-. According to the National Kidney Foundation, irrespective of diagnosis, the stage of the disease is based on the level of kidney function: Stage Description GFR(mL/min/1.73 m(2)) 1 Kidney damage with normal or decreased GFR 90 2 Kidney damage with mild decrease in GFR 60-89 3 Moderate decrease in GFR 30-59 4 Severe decrease in GFR 15-29 5 Kidney failure <15 (or dialysis) 54 Recommended INR for Patients on Oral Anticoagulants Prophylaxis 2.0 - 3.0 Treatment of thrombosis 2.0 - 3.0 Prevention of embolism 2.0 - 3.0 Prevention of embolism from prosthetic heart valves 2.5 - 3.5 55 ATTENTION EFFECTIVE 08/12/08, THE IMPLEMENTATION OF NEW COAGULATION ANLAYZERS HAS CAUSED A SIGNIFICANT DIFFERENCE FOR PROTIME RESULTS IN SECONDS. THEREFORE, DIAGNOSIS,TREATMENT,AND THERAPY MUST BE BASED ON THE INR VALUE ONLY. Procedures Date CPT Code Description Status 01/23/2018 22076 EKG Tracing & Interpretation Completed 01/21/2018 84958 Holter Monitor Review (24 hr)dr review & interp only Completed 01/17/2018 99036 ECG Monitor/Recording W/Visual Superimposition Scanning Completed 12/27/2017 98969 EKG Tracing & Interpretation Completed 12/27/2017 21210 EKG Tracing & Interpretation Completed 12/26/2017 75353 ECHO Transthoracic, Real-Time 2D With Doppler And Color Completed Flow 12/26/2017 39887 ECHO Transthoracic, Real-Time 2D With Doppler And Color Completed Flow 12/13/2017 63896 EKG Tracing & Interpretation Completed 12/12/2017 68454 Inject/Drain Joint/Bursa Major W/O US Completed 11/26/2017 44332 Cath PLMT&NJX L Ventriculog Img S&I Completed 10/17/2017 61846 ECHO Stress Test Incl Perf Contiuous ekg Monitoring Completed W/Phys Superv 08/22/2017 57626 ECHO Transthoracic, Real-Time 2D With Doppler And Color Completed Flow 08/22/2017 05205 ECHO Transthoracic, Real-Time 2D With Doppler And Color Completed Flow 08/22/2017 71607 Holter Monitor Review (24 hr)dr review & interp only Completed 08/16/2017 96461 ECG Monitor/Recording W/Visual Superimposition Scanning Completed 08/15/2017 08844 EKG Tracing & Interpretation Completed 06/20/2017 27054 Inject/Drain Joint/Bursa Major W/O US Completed 06/15/2017 69735 EKG Tracing & Interpretation Completed 03/12/2017 75561 Inject/Drain Joint/Bursa Major W/O US Completed 11/20/2016 55913 Inject/Drain Joint/Bursa Major W/O US Completed 10/24/2016 72671 EKG Tracing & Interpretation Completed 08/29/2016 51172 TKR Total Knee Replacement Completed 08/29/2016 55423 TKR Total Knee Replacement Completed 08/29/2016 27040 TKR Total Knee Replacement Completed 08/18/2016 67867 Stress ECHO Interpretation/Report Hospital Completed 08/18/2016 50801 Treadmill Interp/Report Only Completed 08/18/2016 11874 Stress Test Supervsn W/Out I/R Completed 07/24/2016 50294 ECHO Transthoracic, Real-Time 2D With Doppler And Color Completed Flow 06/12/2016 91640 EKG Tracing & Interpretation Completed 06/12/201665363 Inject/Drain Joint/Bursa Major W/O US Completed 06/05/201666891 Inject/Drain Joint/Bursa Major W/O US Completed 05/29/201603374 Inject/Drain Joint/Bursa Major W/O US Completed 05/08/201692818 Inject/Drain Joint/Bursa Major W/O US Completed 05/24/201599895 Inject/Drain Joint/Bursa Major W/O US Completed 03/22/2015 92460 EKG Tracing & Interpretation Completed 03/06/2014 30525 Xray Knee 3 Views Completed 03/06/2014 99635 Rad Exam; Knee, Ap&L Completed 03/06/201493870 Inject/Drain Joint/Bursa Major W/O US Completed 02/23/2014 58204 EKG Tracing & Interpretation Completed 01/09/2013 88031 EKG Tracing & Interpretation Completed 07/08/2012 10741 EKG Tracing & Interpretation Completed 08/08/2011 84615 Holter Monitoring 24 HR New Completed 07/03/2011 15735 EKG Tracing & Interpretation Completed 08/31/2010 91464 EKG Tracing & Interpretation Completed 11/26/2009 90479 Holter Monitor Completed 11/25/2009 00068 EKG Tracing & Interpretation Completed 10/27/2009 47722 EKG Tracing & Interpretation Completed 02/23/2009 76983 EKG Tracing & Interpretation Completed 02/16/2009 49916 EKG Tracing & Interpretation Completed 02/15/2009 87511 Holter Monitor Completed 01/18/2009 90644 EKG Tracing & Interpretation Completed 01/05/2009 22613 Color Flow Doppler/Interp & Reprt Completed 01/05/2009 12783 Pulse Wave/Continuous-Interp.RPT Completed 01/05/2009 89115 Echocardiography, Transesophageal, Real Time W/Image 2D Completed W/W/O M-M 01/05/2009 42893 EKG, Interpretation Only Completed 01/05/2009 13578 Cardioversion Completed 12/28/2008 18662 ECHO Transthoracic, Real-Time 2D With Doppler And Color Completed Flow 12/23/2008 31264 EKG Tracing & Interpretation Completed 12/18/2008 12737 ECHO Stress Test Incl Perf Contiuous ekg Monitoring Completed W/Phys Superv 12/16/2008 46225 EKG Tracing & Interpretation Completed Encounters Type Date Location Provider CPT E/M Dx Office Visit 01/23/2018 11:00a [facility] Fei Polanco, 37889 I48.2 M.D. E78.00 I35.0 Z95.2 I10 Office Visit 12/13/2017 11:00a [facility] Deb Mahajan, N.P. 72145 I49.1 I25.10 I35.0 I49.3 I48.2 H53.9 Office Visit 10/23/2017 2:00p [facility] Deb Mahajan, N.P. 23030 I35.0 I48.2 I49.3 I10 R07.89 Office Visit 08/15/2017 1:10p [facility] Fei Polanco M.D. 46190 I10 I48.2 I35.0 R07.89 I65.22 Office Visit 07/16/2017 10:30a [facility] M.D. 05425 M25.562 C.M.A. M25.462 M17.12 Office Visit 06/20/2017 8:45a [facility] M.D. 52808 M17.12 C.M.A. Z47.1 Z96.651 M25.561 M25.562 M25.462 Office Visit 06/15/2017 2:40p [facility] Fei Polanco, 51514 E78.00 M.DHeavenly I34.0 I10 I48.2 I35.0 Office Visit 03/12/2017 10:15a [facility] M.D. 08354 M25.562 C.M.A. M25.462 M17.12 Office Visit 10/24/2016 11:40a [facility] Fei Polanco 43446 Z96.651 M.D. I10 I48.2 I35.0 Office Visit 09/01/2016 1:33p [facility] 92304 I48.91 Assoc,pc PA Hospitalists E78.5 Z96.651 I10 Office Visit 08/31/2016 1:[facility]p [facility] 71900 I48.91 Assoc,pc PA Hospitalists E78.5 Z96.651 I10 Office Visit 08/30/2016 1:31p [facility] 12008 I48.91 Assoc,pc PA Hospitalists E78.5 Z96.651 I10 Office Visit 08/29/2016 1:30p [facility], 15411 I48.91 Assoc,pc Hospitalists N.P. E78.5 Z96.651 I10 Office Visit 08/22/2016 1:00p [facility] [address] I10 Office Visit 08/18/2016 11:30a [facility] Fei Polanco M.D. 24051 I34.0 I35.0 I48.2 R94.31 I10 Z01.810 M17.11 Office Visit 07/24/2016 9:30a [facility] M.D. 17346 M25.561 C.M.A. M25.461 M17.11 Office Visit 06/12/2016 1:40p [facility] Fei Polanco M.D. 77006 I10 I48.2 I34.0 Office Visit 05/15/2016 10:15a [facility] M.D. 26969 M25.561 C.M.A. M17.0 M25.461 Office Visit 05/08/2016 1:30p [facility] M.D. 47500 M17.0 C.M.A. M25.561 M25.461 M17.11 Office Visit 04/07/2015 10:30a [facility] M.D. 13384 M17.0 C.M.A. M16.11 M16.12 M25.562 M25.561 M25.552 M25.551 M54.5 M16.0 Office Visit 03/22/2015 2:40p [facility] Fei Polanco, 13805 I48.2 [facility] M.DHeavenly E78.0 I34.0 I10 Office Visit 04/08/2014 1:45p [facility] M.D. 91700 715.16 C.M.A. Office Visit 03/06/2014 2:30p [facility] M.D. 56921 715.10 [facility] AT [place] 715.16 727.51 Office Visit 02/23/2014 3:00p [facility] Fei Polanco 12848 427.31 M.D. 272.0 424.0 401.1 Office Visit 01/09/2013 3:00p [facility] Fei Polanco 94429 427.31 M.D. 272.0 424.0 401.1 Office Visit 07/18/2012 4:00p [facility] Nurse Visit 24613 401.1 Office Visit 07/08/2012 2:00p [facility] Fei Polanco M.D. 45396 424.0 786.09 Office Visit 11/29/2011 9:00a [facility] Milena Gorman, 49562 401.1 N.P. Office Visit 07/03/2011 1:40p [facility] AT Fei Polanco, 54284 427.31 [facility] M.DHeavenly 401.1 424.0 272.0 Office Visit 08/31/2010 11:00a [facility] Fei Polanco 66639 427.31 M.D. 401.1 424.0 272.0 Office Visit 11/25/2009 1:20p [facility] Fei Polanco M.D. 02327 401.1 427.31 424.0 272.0 Office Visit 10/27/2009 3:20p [facility] Fei Polanco M.D. 16789 401.1 427.31 424.0 272.0 Office Visit 02/23/2009 11:30a [facility] Fei Polanco M.D. 78878 401.1 427.31 424.0 Office Visit 02/16/2009 1:30p [facility] [address] Office Visit 01/18/2009 2:20p [facility] Fei Polanco, 14238 427.31 M.DHeavenly 424.0 401.1 Office Visit 12/23/2008 1:00p [facility] [place] [address] Office Visit 12/16/2008 1:40p [facility] Fei Polanco, 34758 427.31 M.D. 401.1 785.2 Plan of Care 01/30/2018 - Deb Mahajan, N.P.I10 Essential (primary) hypertensionFollow up: OV JFM in 3 months.Recommendations:Continue amlodipine 2 tabs daily Continue losartan 25 mg bid. I will obtain Bp s from cardiac rehab. Please drop off BP list next week TOp number is 10 points higher and bottom is 20 points higher than here. 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
--- OUTSIDE RECORDS SUMMARY | 2018-02-08 04:05 | XMS REPORT ---
:1930 External Reference #:[id number] Author Organization [facility] Address [address] [place] [address] [place] [address] Phone [phone] Care Team Providers Name Role Phone Severo Ventura MD Primary Care Physician Unavailable Payers Type Date Identification Payment Subscriber Numbers Provider Health Maintenance Effective: Policy Number: Medicare Karthikeyan Cook Organization ([facility]) 04/02/2012 [id number] o Group Number: [id number] [address] PayID: [id number] [place] [address] Health Maintenance Effective: Policy Number: Medicare Karthikeyan Ochoa (O) 04/04/2005 [id number] o Joyce Expires: 04/01/2012 PayID: [id number] [address] [place] [address] Medigap Part B Effective: 04/02/2011 Policy Number: BS Jonnie Cook [id number] Expires: 04/01/2012 PayID: [id number] [address] [address] [place] [address] Medigap Part B Effective: 09/30/2009 Policy Number: BS Silvina FERN Cook [id number] Expires: 04/02/2011 PayID: [id number] [address] [address] [place] [address] Problems Date Description Provider Status Onset: 07/03/2011 Atrial fibrillation Fei Polanco M.D. Active Onset: 07/03/2011 Benign essential hypertension Fei Polanco M.D. Active Onset: 07/03/2011 Mitral valve disorder Fei Polanco M.D. Active Onset: 07/03/2011 Pure hypercholesterolemia Fei Polanco M.D. Active Onset: 03/22/2015 Chronic atrial fibrillation Fei Polanco M.D. Active Onset: 04/07/2015 Localized, primary osteoarthritis Madidson Wells M.D. Active Onset: 04/07/2015 Localized, primary [...] Status 02/2012 Lives With Alone Occupation retired banking services advisor Cigarette Use Never Smoked Cigarettes ETOH Use [...] Ordering Provider Amlodipine 01/23 Active Tablets 2.5mg 90tab 1 by I10 Fei Bes s mouth F. every day Jeremiah Polanco Lipitor 03/29 Active Tablets 10mg 100ta 1 by Fei /2008 bs mouth F. every Mauser, night at M.D. bedtime Potassium Active Tablets 20Meq 25tab 1 by Fei Chloride ER / ER s mouth F. twice Mauser, weekly M.D. mon/mihai y Cinnamon Active 1000mg 1 tablet Unknown /0000 po twice daily Am/PM Fish Oil Active Capsules 360mg 1 by Unknown /0000 mouth one daily [...] Unknown /0000 day Losartan Active Tablets 25mg 1 by Unknown Potassium /0000 mouth every day Plavix 12/19 Hx Tablets 75mg 30tab 1 by Deb S. s mouth Keyshawn, - every day N.P. [...] Cane - 4 Prong 04/07 Hx M17.0 Russell, - M.D. 12/12 Fish Oil 02/23 Hx Capsules 1000mg 1 by mouth Ordering - every day Provider 03/22 Amlodipine 02/23 Hx Tablets 2.5mg 100ta 1 by Fei Hogue bs mouth F. - every day Mauser, 05/23 M.D. /2015 Losartan 08/30 Hx Tablets 25mg 90tab 1by mouth Fei [place] s every F. - other Mauser, . M.D. Amlodipine 07/26 Hx Tablets 5mg 90tab 1 by Fei Besylate s mouth F. - every day Mauser, 02/23 M.D. Citalopram 07/08 Hx Tablets 10mg 90tab 1 po qd Other Hydrobromide s Ordering - Provider 03/21 Vitamin E 07/08 Hx Capsules 1000Unit 2 po Other daily Ordering - Provider 07/07 Fish Oil 07/08 Hx Capsules 500mg 1 po qd Other Ordering - Provider 02/23 Lisinopril 07/08 Hx Tablets 5mg 60tab 1 po bid s F. - Mauser, 08/30 M.D. Lisinopril 11/28 Hx Tablets 5mg 90tab 1 po qd s F. - Arpanr, 07/08 M.D. Lisinopril 11/09 Hx Tablets 2.5mg 30tab 1 po qd s F. - Mauser, 11/28 M.D. Potassium 07/06 Hx 20Meq 36uni 1 po Fei Chloride ts sunday, - sunday Mauser, 08/25 and .Sunday Potassium 01/26 Hx Fei Chloride . - Mauser, 07/06 M.D. Atenolol 01/18 Hx Tablets 25mg 1/2 po qod until 01.26. Mauser, 02/16 and then .D. discontin ue Potassium 01/05 Hx Tablet 20Meq 90tab 1 po qd Fei Chloride s F. - Mauser, 01/26 M.D. Atenolol 12/18 Hx Tablets 25mg 90tab 1/2 po qd s F. - Mauser, 01/18 M.D. Cardizem CD 12/16 Hx Caps ER 120mg 100ca 1 po qd 24HR ps on hold . - Arpanr, 11/08 M.D. Atenolol 12/16 Hx Tablets 25mg 90tab 1 po qd Fei s F. - Mauser, 12/18 M.D. Warfarin Sodium Hx Tablets 5mg [...] two po qd Unknown /0000 - 12/23 [place] 3 Hx 1000mg one po qd Unknown [...] Wells M.D. Depomedrol Administered Injection Maddison 40MG Franklyn Wells M.D. Depomedrol Administered Injection Maddison 40MG Brain Wells M.D. Depomedrol Administered Injection Maddison 40MG Brain Wells M.D. Synvisc Or Administered Injection B Synvisc-One Brain Prater, Injection 1 MG PA Synvisc Or Administered Injection Maddison Synvisc-One Brain Wells M.D. Injection 1 MG Synvisc Or Administered Injection Maddison Synvisc-One Brain Wells M.D. Injection 1 MG Depomedrol Administered Injection Maddison 40MG 017 Jeremiah Wells Depomedrol Administered Injection Dirk Donis, 40MG 016 Jeremiah Depomedrol Administered Injection Maddison 80MG 014 Jeremiah Wells Vital Signs Date Vital Result Comment 01/23/2018 Height 63.5 inches 5'3.50" Weight 158.00 lb Heart Rate 64 /min BP Systolic Sitting 162 mmHg Ra< reg BP Diastolic Sitting 94 mmHg Ra< reg BMI (Body Mass Index) 27.5 kg/m2 Ejection [...] Inr 1.09 High 0.77-1.02 Lipid Panel - [facility] 08/15/2017 Creatine Kinase(CK) 49 U/L [...] 10 Urine Appearance Clear 10 Urine Specific [place] 1.014 1.010-1.030 10 Urine pH 5.0 5-9 [...] BELOW 10, 14 Sensitivities Lipid Panel - [facility] 01/08/2013 Creatine Kinase 68 U/L 0-200 15 [...] Less Than 100 18 Lipid Panel - [facility] 01/09/2012 Creatine Kinase 76 U/L 0-200 19 [...] 77.3 > 60 35 Lipid Panel - [facility] 07/04/2010 CPK (Creatine Kinase) 83 [...] Less Than 100 41 Lipid Panel - [facility] 11/05/2009 CPK (Creatine Kinase) 50 U/L 0-170 [...] (or dialysis) 2 CC SEVERO SINGLETON MD [phone] 3 Because ethnic data is not always [...] High: >189 8 CC SEVERO SINGLETON MD [phone] CC SEVERO SINGLETON MD [phone] 10 [id number] 12 Because ethnic data is not always [...] [address]: Maddison Wells MD Acct: [id number] Unit: [id number] AGE: 86 Location: [facility] Re08/21/16 SEX: F Status: REG REF SPEC: [id number] SRAVANI: 08/21/16-[address]: Maddison Wells MD REQ: [id number] RECD: 08/21/16 STATUS: COMP _ SOURCE: URINE SPDES: ORDERED: Urine Culture COMMENTS: [id number] QUERIES: Urine Source: Clean Catch Procedure Result Reported Site Urine Culture Final 08/23/16- 1229 ML No growth of clinically significant organisms * ML - MAIN LAB ([facility]) . END OF REPORT * ML=Testing performed at Main Lab DEPARTMENT OF PATHOLOGY, [address] [place] [address] Raymond Avelar M.D. Director [facility] # [id number] 15 FASTING 16 Because ethnic data is [...] has been shown to interfere with the [place] method for measuring total bilirubin. Samples from [...] has been shown to interfere with the [place] method for measuring total bilirubin. Samples from [...] has been shown to interfere with the [place] method for measuring total bilirubin. Samples from [...] change was based on recommendations from the [employer]. 44 Please note change in reference range effective 07 . 45 A metabolite of Naproxen, O-desmethylnaproxen, has been shown to interfere with the [place] method for measuring total bilirubin. Samples from [...] change was based on recommendations from the [employer]. 52 Please note change in [...] Procedures Date CPT Code Description Status 01/23/2018 34926 EKG Tracing & Interpretation Completed 01/21/2018 32180 Holter Monitor Review (24 hr)dr review & interp only Completed 01/17/2018 92494 ECG Monitor/Recording W/Visual Superimposition Scanning Completed 12/27/2017 22857 EKG Tracing & Interpretation Completed 12/27/2017 17571 EKG Tracing & Interpretation Completed 12/26/2017 09381 ECHO Transthoracic, Real-Time 2D With Doppler And Color Completed Flow 12/26/2017 90993 ECHO Transthoracic, Real-Time 2D With Doppler And Color Completed Flow 12/13/2017 87911 EKG Tracing & Interpretation Completed 12/12/2017 87685 Inject/Drain Joint/Bursa Major W/O US Completed 11/26/2017 04124 Cath PLMT&NJX L Ventriculog Img S&I Completed 10/17/2017 18182 ECHO Stress Test Incl Perf Contiuous ekg Monitoring Completed W/Phys Superv 08/22/2017 87121 ECHO Transthoracic, Real-Time 2D With Doppler And Color Completed Flow 08/22/2017 53023 ECHO Transthoracic, Real-Time 2D With Doppler And Color Completed Flow 08/22/2017 53801 Holter Monitor Review (24 hr)dr review & interp only Completed 08/16/2017 82367 ECG Monitor/Recording W/Visual Superimposition Scanning Completed 08/15/2017 42862 EKG Tracing & Interpretation Completed 06/20/2017 53220 Inject/Drain Joint/Bursa Major W/O US Completed 06/15/2017 35138 EKG Tracing & Interpretation Completed 03/12/2017 35528 Inject/Drain Joint/Bursa Major W/O US Completed 11/20/2016 47543 Inject/Drain Joint/Bursa Major W/O US Completed 10/24/2016 22839 EKG Tracing & Interpretation Completed 08/29/2016 50414 TKR Total Knee Replacement Completed 08/29/2016 21085 TKR Total Knee Replacement Completed 08/29/2016 39865 TKR Total Knee Replacement Completed 08/18/2016 64518 Stress ECHO Interpretation/Report Hospital Completed 08/18/2016 10993 Treadmill Interp/Report Only Completed 08/18/2016 73743 Stress Test Supervsn W/Out I/R Completed 07/24/2016 25206 ECHO Transthoracic, Real-Time 2D With Doppler And Color Completed Flow 06/12/2016 53879 EKG Tracing & Interpretation Completed 06/12/2016 69380 Inject/Drain Joint/Bursa Major W/O US Completed 06/05/2016 54455 Inject/Drain Joint/Bursa Major W/O US Completed 05/29/2016 06375 Inject/Drain Joint/Bursa Major W/O US Completed 05/08/2016 22302 Inject/Drain Joint/Bursa Major W/O US Completed 05/24/2015 96113 Inject/Drain Joint/Bursa Major W/O US Completed 03/22/2015 24762 EKG Tracing & Interpretation Completed 03/06/2014 74614 Xray Knee 3 Views Completed 03/06/2014 30546 Rad Exam; Knee, Ap&L Completed 03/06/201423140 Inject/Drain Joint/Bursa Major W/O US Completed 02/23/2014 14639 EKG Tracing & Interpretation Completed 01/09/2013 31824 EKG Tracing & Interpretation Completed 07/08/2012 57798 EKG Tracing & Interpretation Completed 08/08/2011 72285 Holter Monitoring 24 HR New Completed 07/03/2011 63737 EKG Tracing & Interpretation Completed 08/31/2010 87159 EKG Tracing & Interpretation Completed 11/26/2009 44481 Holter Monitor Completed 11/25/2009 00650 EKG Tracing & Interpretation Completed 10/27/2009 49128 EKG Tracing & Interpretation Completed 02/23/2009 17272 EKG Tracing & Interpretation Completed 02/16/2009 19760 EKG Tracing & Interpretation Completed 02/15/2009 12617 Holter Monitor Completed 01/18/2009 55872 EKG Tracing & Interpretation Completed 01/05/2009 30004 Color Flow Doppler/Interp & Reprt Completed 01/05/2009 53121 Pulse Wave/Continuous-Interp.RPT Completed 01/05/2009 32900 Echocardiography, Transesophageal, Real Time W/Image 2D Completed W/W/O M-M 01/05/2009 87245 EKG, Interpretation Only Completed 01/05/2009 06795 Cardioversion Completed 12/28/2008 89197 ECHO Transthoracic, Real-Time 2D With Doppler And Color Completed Flow 12/23/2008 61119 EKG Tracing & Interpretation Completed 12/18/2008 12486 ECHO Stress Test Incl Perf Contiuous ekg Monitoring Completed W/Phys Superv 12/16/2008 87195 EKG Tracing & Interpretation Completed Encounters Type Date Location Provider CPT E/M Dx Office Visit 12/13/2017 11:00a [facility] Deb Mahajan, N.P. 97747 I49.1 I25.10 I35.0 I49.3 I48.2 H53.9 Office Visit 10/23/2017 2:00p [facility] Deb Mahajan, N.P. 39709 I35.0 I48.2 I49.3 I10 R07.89 Office Visit 08/15/2017 1:10p [facility] Fei Polanco M.D. 24146 I10 I48.2 I35.0 R07.89 I65.22 Office Visit 07/16/2017 10:30a [facility] M.D. 97997 M25.562 C.M.A. M25.462 M17.12 Office Visit 06/20/2017 8:45a [facility] M.D. 89067 M17.12 C.M.A. Z47.1 Z96.651 M25.561 M25.562 M25.462 Office Visit 06/15/2017 2:40p [facility] Fei Polanco, 89670 E78.00 M.DHeavenly I34.0 I10 I48.2 I35.0 Office Visit 03/12/2017 10:15a [facility] M.D. 45894 M25.562 C.M.A. M25.462 M17.12 Office Visit 10/24/2016 11:40a [facility] Fei Polanco, 70604 Z96.651 MKaro I10 I48.2 I35.0 Office Visit 09/01[facility]2016 [facility] 9[address]63 I48.91 Assoc, PA Hospitalists E78.5 Z96.651 I10 Office Visit 08/31/2016 1:32p [facility], 26857 I48.91 Assoc,pc PA Hospitalists E78.5 Z96.651 I10 Office Visit 08/30/2016 1:31p [facility], 43926 I48.91 Assoc, PA Hospitalists E78.5 Z96.651 I10 Office Visit 08/29/2016 1:30p [facility], 45624 I48.91 Assoc,pc Hospitalists N.P. E78.5 Z96.651 I10 Office Visit 08/22/2016 1:00p [facility] [place] [address] I10 Office Visit 08/18/2016 11:30a [facility] Fei Polanco M.D. 08298 I34.0 I35.0 I48.2 R94.31 I10 Z01.810 M17.11 Office Visit 07/24/2016 9:30a [facility] M.D. 93387 M25.561 C.M.A. M25.461 M17.11 Office Visit 06/12/2016 1:40p [facility] Fei Polanco M.D. 37113 I10 I48.2 I34.0 Office Visit 05/15/2016 10:15a [facility] M.D. 08729 M25.561 C.M.A. M17.0 M25.461 Office Visit 05/08/2016 1:30p [facility] M.D. 34953 M17.0 C.M.A. M25.561 M25.461 M17.11 Office Visit 04/07/2015 10:30a [facility] M.D. 67295 M17.0 C.M.A. M16.11 M16.12 M25.562 M25.561 M25.552 M25.551 M54.5 M16.0 Office Visit 03/22/2015 2:40p [facility] Fei Polanco, 22478 I48.2 Faustino Daniels E78.0 I34.0 I10 Office Visit 04/08/2014 1:45p [facility] M.D. 67605 715.16 C.M.A. Office Visit 03/06/2014 2:30p [facility] M.D. 38112 715.10 [facility] 715.16 727.51 Office Visit 02/23/2014 3:00p [facility] Fei Polanco 89433 427.31 M.D. 272.0 424.0 401.1 Office Visit 01/09/2013 3:00p [facility] Fei Polanco 97504 427.31 M.D. 272.0 424.0 401.1 Office Visit 07/18/2012 4:00p [facility] Nurse Visit 96949 401.1 Office Visit 07/08/2012 2:00p [facility] Fei Polanco M.D. 55970 424.0 786.09 Office Visit 11/29/2011 9:00a [facility] Milena Gorman, 79866 401.1 N.P. Office Visit 07/03/2011 1:40p [facility] AT Fei Polanco, 19775 427.31 [facility] MHeavenlyDHeavenly 401.1 424.0 272.0 Office Visit 08/31/2010 11:00a [facility] Fei Polanco, 43898 427.31 M.DHeavenly 401.1 424.0 272.0 Office Visit 11/25/2009 1:20p [facility] Fei Polanco M.D. 84740 401.1 427.31 424.0 272.0 Office Visit 10/27/2009 3:20p [facility] Fei Polanco M.D. 56483 401.1 427.31 424.0 272.0 Office Visit 02/23/2009 11:30a [facility] Fei Polanco M.D. 54179 401.1 427.31 424.0 Office Visit 02/16/2009 1:30p [facility] [place] [address] Office Visit 01/18/2009 2:20p [facility] Fei Polanco, 62879 427.31 M.D. 424.0 401.1 Office Visit 12/23/2008 1:00p [facility] [place] [address] Office Visit 12/16/2008 1:40p [facility] Fei Polanco, 85475 427.31 M.DHeavenly 401.1 785.2 Plan of Care Future Appointment(s):01/30/2018 11:30 am - [facility]2018 - Fei Polanco M.D.I48.2 Chronic atrial wkjshyssistyL00.00 Pure hypercholesterolemia, vwtkyksehyvP61.0 Nonrheumatic aortic (valve) gmvgnergN09.2 Presence of prosthetic heart zqfnpA53 Essential ( primary) hypertensionNew Medication:Amlodipine Besylate 2.5 mgFollow up:OV SPINE SURGEON IN 1-2 WEEKS OV JFM 3 M
--- OUTSIDE RECORDS SUMMARY | 2018-02-08 04:06 | XMS REPORT ---
:1930 External Reference #:[id number] Author Organization [facility] Address [address] [place] [address] [place] [address] Phone [phone] Care Team Providers Name Role Phone Severo Ventura MD Primary Care Physician Unavailable Payers Type Date Identification Payment Subscriber Numbers Provider Health Maintenance Effective: Policy Number: Medicare Karthikeyan Cook Organization ([facility]) 04/02/2012 [id number] o Group Number: [id number] [address] PayID: [id number] [place] [address] Health Maintenance Effective: Policy Number: Medicare Karthikeyan Ochoa (O) 04/04/2005 [id number] o Joyce Expires: 04/01/2012 PayID: [id number] [address] [place] [id number] Medigap Part B Effective: 04/02/2011 Policy Number: BS Jonnie Cook [id number] Expires: 04/01/2012 PayID: [id number] [address] [id number] [place] [id number] Medigap Part B Effective: 09/30/2009 Policy Number: BS Silvina FERN Cook [id number] Expires: 04/02/2011 PayID: [id number] [address] [id number] [place] [id number] Problems Date Description Provider Status Onset: 07/03/2011 [...] Status 02/2012 Lives With Alone Occupation retired blood bank technician Cigarette Use Never Smoked Cigarettes ETOH Use [...] Form Strength Qnty SIG Indications Ordering Provider Lipitor 03/29 Active Tablets 10mg 100ta 1 [...] Capsules 500mg once a Unknown /0000 day Plavix 12/19 Hx Tablets 75mg 30tab 1 by Deb Clemons s mouth Keyshawn, - every day N.P. 12/23 Percocet 08/21 Hx Tablets 5-325mg 90tab 1-2 by Maddison s mouth Russell, - every 4-6 M.D. 10/08 hours needed pain Colace 08/21 Hx Capsules 100mg 90cap 1 tab by s mouth 2-3 Russell, - times a M.D. 10/08 day needed Amlodipine 08/18 Hx Tablets 2.5mg 1 by Fei Bellaylate mouth F. - every day Mauser, 08/18 M.D. Amlodipine 08/18 Hx Tablets 2.5mg 1 by Fei Bellaylate mouth F. - every day Mauser, 08/21 M.D. Amlodipine 08/18 Hx Tablets 2.5mg 90tab 1 by Fei Bellaylate s mouth F. - every day Mauser, [...] Tablets 25mg 90tab 1by mouth Fei Potassium s every F. - other Mauser, 08/24 [...] Hx Tablets 5mg 60tab 1 po bid [facility] 08[facility]30 M.D. Lisinopril 11/28 Hx Tablets 5mg 90tab 1 po qd [facility] Col[facility], 07/08 M.D. Lisinopril 11/09 Hx Tablets 2.5mg 30tab 1 po qd [facility], 11/28 M.D. Potassium 07/06 Hx 20Meq 36uni 1 po Fei Chloride ts sunday, - sunday Mauser, 08/25 and .. Sunday Potassium 01/26 Hx Fei Chloride . - use, 07/06 M.D. Atenolol 01/18 Hx Tablets 25mg 1/2 po qod until 01.26. Mauser, 02/16 and then .D. discontin ue Potassium 01/05 Hx Tablet 20Meq 90tab 1 po qd Fei [facility]. Arpanr, 01/26.D. Atenolol 12/18 Hx Tablets 25mg 90tab 1/2 po qd [facility]. - Mauser, 01/18 M.D. Cardizem CD 12/16 Hx Caps ER 120mg 100ca 1 po qd 24HR ps on hold Heavenly Polanco, 11/08 M.D. Atenolol 12/16 Hx Tablets 25mg 90tab 1 po qd [facility], 12/18 M.D. Warfarin Sodium Hx Tablets 5mg [...] qd Unknown /0000 - 03/21 Vitamin D 00 Hx two po qd Unknown /0000 - 12/23 Monument 3 Hx 1000mg one po qd Unknown /0000 - 07/08 Hydrochlorothiazi Hx Tablets 25mg 1 qam Unknown de /0000 - 12/16 Tylenol Hx Tablets Unspecified 2 q am, & Unknown /0000 Dose 2qhs for - arthritis 03/21 Flaxseed Oil Hx Capsules 1000mg 1 po qd Unknown /0000 - 01/09 Amlodipine Hx Tablets 2.5mg 1 by Unknown Bes /0000 mouth - every day 08/21 Medications [...] 1 MG Depomedrol Administered Injection Maddison 40MG Brain Wells M.D. Depomedrol Administered Injection Dirk Donis, 40MG 016 Jeremiah Depomedrol Administered Injection Maddison 80MG Alexx Wells M.D. Vital Signs Date Vital Result Comment 12/13/2017 Height 63.5 inches 5'3.50" Weight 155.00 [...] Test Date Test Result H/L Range Note CBC Auto Diff 12/27/2017 White Blood Count [...] 0-2 Nucleated Red Blood Cells % 0.1 Comp Metabolic Panel 12/27/2017 Sodium 141 mmol/L [...] Non- 67.7 >60 Egfr 81.9 >60 1 Iron & Iron Binding Capacity 12/27/2017 Iron 65 g/dL 50-212 Unsaturated Iron Binding 254 g/dL Total Iron Binding Capacity 319 g/dL 250-450 Transferrin 228 mg/dL 203-362 % Iron Saturation 20 % 15-55 Laboratory test finding 12/27/2017 TSH (Thyroid Stim 0.94 mcIU/mL 0.34- 5.60 Horm) Inr/Protime 11/26/2017 Inr 1.09 High 0.77-1.02 Lipid Panel - [facility] 08/15/2017 Creatine Kinase(CK) 49 U/L 10-223 2 [...] 8 Troponin I 0.01 ng/mL <0.04 9 Urine Culture And 08/21/2016 Urine Culture SEE RESULT BELOW 10, 11 Sensitivities Type & Screen 08/21/2016 Patient Blood Type A Positive 10 Antibody Screen NEGATIVE 10 Urinalysis Profile 08/21/2016 Urine Color Yellow 10 Urine Appearance Clear 10 Urine Specific [place] 1.014 1.010-1.030 10 Urine pH 5.0 5-9 10 Urine Urobilinogen Negative Negative 10 Urine Ketones Negative Negative 10 Urine Protein Negative Negative 10 Urine Leukocytes 3+ Negative 10 Urine Blood Negative Negative 10 * * Negative 10, 12 Urine Nitrite Negative Negative 10 Urine Bilirubin Negative Negative 10 Urine Glucose Negative Negative 10 Urine White Blood Cell 3+(>20/hpf) Absent 10 Urine Red Blood Cell Absent Absent 10 Urine Bacteria Absent Absent 10 Urine Squamous Epithelial Cell Present Absent 10 Comp Metabolic Panel 08/21/2016 Sodium 140 mmol/L [...] 64.1 >60 10 Egfr 82.5 >60 10, 13 Laboratory test 08/21/2016 Partial Thrombo 42.5 seconds High 26.0-36.3 10 , 14 finding Time PTT Inr/Protime 08/21/2016 Inr 2.98 High 0.89-1.11 10 [...] Mean Platelet Volume 9 um3 7.4-10.4 10 Comp Metabolic Panel 01/08/2013 Sodium 140 mmol/L [...] Egfr Non- 68.5 >60 Egfr 88.1 >60 15 Lipid Profile (Trig/Chol/HDL) 01/08/2013 Triglycerides 75 mg/dL 40-200 Cholesterol 173 mg/dL Less than 200 HDL Cholesterol 64 mg/dL High 40-60 16 Cholesterol/HDL Ratio 2.7 Average 1-4.44 LDL Cholesterol 94.0 Less Than 100 17 Lipid Panel - [facility] 01/08/2013 Creatine Kinase 68 U/L 0-200 18 Lipid Panel - [facility] 01/09/2012 Creatine Kinase 76 U/L 0-200 19 [...] 77.3 > 60 35 Lipid Panel - [facility] 07/04/2010 CPK (Creatine Kinase) 83 U/L 0-170 [...] Less Than 100 41 Lipid Panel - [facility] 11/05/2009 CPK (Creatine Kinase) 50 U/L 0-170 [...] (or dialysis) 2 CC SEVERO SINGLETON MD [phone] Because ethnic data is not always [...] High: >189 8 CC SEVERO SINGLETON MD [phone] CC SEVERO SINGLETON MD [phone] [id number] 11 SEE RESULT BELOW Name: MACO COOK : [address]: Maddison Wells MD Acct: [id number] Unit: [id number] AGE: 86 Location: [facility] Re08/21/16 SEX: F Status: REG REF SPEC: [id number] SRAVANI: 08/21/16-12[address] [facility] [address]: Maddison Wells MD REQ: [id number] RECD: 08/21/16 STATUS: COMP _ SOURCE: URINE SPDESC: ORDERED: Urine Culture COMMENTS: [id number] QUERIES: Urine Source: Clean Catch Procedure Result Reported Site Urine Culture Final 08/23/16- 1229 ML No growth of clinically significant organisms * ML - MAIN LAB (PSC1) . END OF REPORT * ML=Testing performed at Main Lab DEPARTMENT OF PATHOLOGY, [address] [place] [address] Raymond Avelar M.D. Director [facility] # [id number] 12 *Ascorbic acid is present which may interfere with detection of blood. 13 Because ethnic data is not always readily [...] 15-29 5 Kidney failure <15 (or dialysis) 14 [id number] 15 Because ethnic data is not always readily [...] 15-29 5 Kidney failure <15 (or dialysis) 16 HDL Interpretation: Undesirable: High Risk: Less than 40 mg/dL Desirable: Low Risk: Greater than 60 mg/dL 17 LDL Interpretation: Low Risk Optimal Level: LDL Less than 100 mg/dL Near or Above Optimal: LDL 100-129 mg/dL Borderline High Risk: LDL 130-159 mg/dL High Risk: LDL 160-189 mg/dL Very High Risk: LDL Greater than 189 mg/dL 18 FASTING 19 FASTING 20 A metabolite of Naproxen, O-desmethylnaproxen, has been shown to interfere with the [place] method for measuring total bilirubin. Samples from [...] change was based on recommendations from the [place] [employer]. 44 Please note change in [...] change was based on recommendations from the [place] [employer]. 52 Please note change in [...] ONLY. Procedures Date CPT Code Description Status 12/27/2017 21757 EKG Tracing & Interpretation Completed 12/27/2017 81442 EKG Tracing & Interpretation Completed 12/26/2017 72724 ECHO Transthoracic, Real-Time 2D With Doppler And Color Completed Flow 12/26/2017 94452 ECHO Transthoracic, Real-Time 2D With Doppler And Color Completed Flow 12/13/2017 21251 EKG Tracing & Interpretation Completed 12/12/2017 48169 Inject/Drain Joint/Bursa Major W/O US Completed 11/26/2017 31193 Cath PLMT&NJX L Ventriculog Img S&I Completed 10/17/2017 71984 ECHO Stress Test Incl Perf Contiuous ekg Monitoring Completed W/Phys Superv 08/22/2017 05963 ECHO Transthoracic, Real-Time 2D With Doppler And Color Completed Flow 08/22/2017 32457 ECHO Transthoracic, Real-Time 2D With Doppler And Color Completed Flow 08/22/2017 67679 Holter Monitor Review (24 hr)dr review & interp only Completed 08/16/2017 42036 ECG Monitor/Recording W/Visual Superimposition Scanning Completed 08/15/2017 85880 EKG Tracing & Interpretation Completed 06/20/2017 92546 Inject/Drain Joint/Bursa Major W/O US Completed 06/15/2017 81319 EKG Tracing & Interpretation Completed 03/12/2017 14526 Inject/Drain Joint/Bursa Major W/O US Completed 11/20/2016 01716 Inject/Drain Joint/Bursa Major W/O US Completed 10/24/2016 65669 EKG Tracing & Interpretation Completed 08/29/2016 86488 TKR Total Knee Replacement Completed 08/29/2016 75610 TKR Total Knee Replacement Completed 08/29/2016 70270 TKR Total Knee Replacement Completed 08/18/2016 04185 Stress ECHO Interpretation/Report Hospital Completed 08/18/2016 37234 Treadmill Interp/Report Only Completed 08/18/2016 90431 Stress Test Supervsn W/Out I/R Completed 07/24/2016 15818 ECHO Transthoracic, Real-Time 2D With Doppler And Color Completed Flow 06/12/2016 00630 EKG Tracing & Interpretation Completed 06/12/201640687 Inject/Drain Joint/Bursa Major W/O US Completed 06/05/201655111 Inject/Drain Joint/Bursa Major W/O US Completed 05/29/2016 22959 Inject/Drain Joint/Bursa Major W/O US Completed 05/08/2016 11074 Inject/Drain Joint/Bursa Major W/O US Completed 05/24/2015 54410 Inject/Drain Joint/Bursa Major W/O US Completed 03/22/2015 22930 EKG Tracing & Interpretation Completed 03/06/2014 48522 Xray Knee 3 Views Completed 03/06/2014 20174 Rad Exam; Knee, Ap&L Completed 03/06/201440396 Inject/Drain Joint/Bursa Major W/O US Completed 02/23/2014 55360 EKG Tracing & Interpretation Completed 01/09/2013 07681 EKG Tracing & Interpretation Completed 07/08/2012 82365 EKG Tracing & Interpretation Completed 08/08/2011 08329 Holter Monitoring 24 HR New Completed 07/03/2011 76735 EKG Tracing & Interpretation Completed 08/31/2010 97250 EKG Tracing & Interpretation Completed 11/26/2009 89213 Holter Monitor Completed 11/25/2009 76401 EKG Tracing & Interpretation Completed 10/27/2009 03043 EKG Tracing & Interpretation Completed 02/23/2009 44818 EKG Tracing & Interpretation Completed 02/16/2009 09948 EKG Tracing & Interpretation Completed 02/15/2009 22522 Holter Monitor Completed 01/18/2009 77412 EKG Tracing & Interpretation Completed 01/05/2009 08056 Color Flow Doppler/Interp & Reprt Completed 01/05/2009 28416 Pulse Wave/Continuous-Interp.RPT Completed 01/05/2009 96521 Echocardiography, Transesophageal, Real Time W/Image 2D Completed W/W/O M-M 01/05/2009 32371 EKG, Interpretation Only Completed 01/05/2009 69444 Cardioversion Completed 12/28/2008 41929 ECHO Transthoracic, Real-Time 2D With Doppler And Color Completed Flow 12/23/2008 79761 EKG Tracing & Interpretation Completed 12/18/2008 99376 ECHO Stress Test Incl Perf Contiuous ekg Monitoring Completed W/Phys Superv 12/16/2008 72045 EKG Tracing & Interpretation Completed Encounters Type Date Location Provider CPT E/M Dx Office Visit 12/13/2017 11:00a [facility] Deb Mahajan, N.P. 92692 I49.1 I25.10 I35.0 I49.3 I48.2 H53.9 Office Visit 10/23/2017 2:00p [facility] Deb Mahajan N.P. 14281 I35.0 I48.2 I49.3 I10 R07.89 Office Visit 08/15/2017 1:10p [facility] Fei Polanco M.D. 89267 I10 I48.2 I35.0 R07.89 I65.22 Office Visit 07/16/2017 10:30a [facility] Wells M.D. 82357 M25.562 C.M.A. M25.462 M17.12 Office Visit 06/20/2017 8:45a [facility] Wells M.D. 01062 M17.12 C.M.A. Z47.1 Z96.651 M25.561 M25.562 M25.462 Office Visit 06/15/2017 2:40p [facility] Fei Polanco 59047 E78.00 Jeremiah I34.0 I10 I48.2 I35.0 Office Visit 03/12/2017 10:15a [facility] Wells M.D. 57299 M25.562 C.M.A. M25.462 M17.12 Office Visit 10/24/2016 11:40a [facility] Fei Polanco, 55687 Z96.651 M.Julissa I10 I48.2 I35.0 Office Visit 09/01/2016 1:33p [facility] [address]655 I48.91 Assoc,pc [facility] E78.5 Z96.651 I10 Office Visit 08/31/2016 1:32p [facility], 06919 I48.91 Assoc,pc [facility] Hospitalists E78.5 Z96.651 I10 Office Visit 08/30/2016 1:31p [facility] 78006 I48.91 Assoc,pc [facility] Hospitalists E78.5 Z96.651 I10 Office Visit 08/29/2016 1:30p [facility], 28164 I48.91 Assoc,pc Hospitalists N.P. E78.5 Z96.651 I10 Office Visit 08/22/2016 1:00p [facility] [place] [address] I10 Office Visit 08/18/2016 11:30a [facility] Fei Polanco M.D. 18119 I34.0 I35.0 I48.2 R94.31 I10 Z01.810 M17.11 Office Visit 07/24/2016 9:30a [facility] Wells M.D. 20547 M25.561 C.M.A. M25.461 M17.11 Office Visit 06/12/2016 1:40p [facility] Fei Polanco M.D. 05657 I10 I48.2 I34.0 Office Visit 05/15/2016 10:15a [facility] Wells M.D. 20225 M25.561 C.M.A. M17.0 M25.461 Office Visit 05/08/2016 1:30p [facility] Wells M.D. 99887 M17.0 C.M.A. M25.561 M25.461 M17.11 Office Visit 04/07/2015 10:30a [facility] Wells M.D. 15317 M17.0 C.M.A. M16.11 M16.12 M25.562 M25.561 M25.552 M25.551 M54.5 M16.0 Office Visit 03/22/2015 2:40p [facility] Fei Polanco, 36709 I48.2 [facility] Jeremiah E78.0 I34.0 I10 Office Visit 04/08/2014 1:45p [facility] Wells M.D. 10223 715.16 C.M.A. Office Visit 03/06/2014 2:30p [facility] M.D. 07728 715.10 [facility] AT [place] 715.16 727.51 Office Visit 02/23/2014 3:00p [facility] Fei Polanco, 47596 427.31 M.D. 272.0 424.0 401.1 Office Visit 01/09/2013 3:00p [facility] Fei Polanco 49369 427.31 M.DHeavenly 272.0 424.0 401.1 Office Visit 07/18/2012 4:00p [facility] Nurse Visit 91201 401.1 Office Visit 07/08/2012 2:00p [facility] Fei Polanco M.D. 13357 424.0 786.09 Office Visit 11/29/2011 9:00a [facility] Milena Gorman, 61702 401.1 N.P. Office Visit 07/03/2011 1:40p [facility] AT Fei Polanco, 72215 427.31 [facility] M.DHeavenly 401.1 424.0 272.0 Office Visit 08/31/2010 11:00a [facility] Fei Polanco 11513 427.31 M.DHeavenly 401.1 424.0 272.0 Office Visit 11/25/2009 1:20p [facility] Fei Polanco M.D. 97975 401.1 427.31 424.0 272.0 Office Visit 10/27/2009 3:20p [facility] Fei Polanco M.D. 93578 401.1 427.31 424.0 272.0 Office Visit 02/23/2009 11:30a [facility] Fei Polanco M.D. 70269 401.1 427.31 424.0 Office Visit 02/16/2009 1:30p [facility] [place] [address] Office Visit 01/18/2009 2:20p [facility] Fei Polanco 90266 427.31 M.DHeavenly 424.0 401.1 Office Visit 12/23/2008 1:00p [facility] [place] [address] Office Visit 12/16/2008 1:40p [facility] Fei Polanco, 19231 427.31 M.DHeavenly 401.1 785.2 Plan of Care Future Appointment(s):01/18/2018 2:00 pm - Nurse Visit [facility] at [facility]01/17/2018 2:15 pm - Nurse Visit IC at [facility]2017 - Deb Mahajan NHeavenlyPHeavenlyI49.1 Atrial premature arhtnwytqgpdjdA90.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 Bring BPs to visit for echocardiogram.I49.3 Ventricular premature aczalmpvkwogwuD48.2 Chronic atrial yyrwftdvwgtsL69.9 Unspecified visual disturbanceNew Xrays:CT Brain WoReferral:Jori Zaragoza MD, Neurology
[2018-02-08 04:11] LABS: ABS Basophils 0 10^3/ul (0-0.2); ABS Eosinophils 0.1 10^3/ul (0-0.6); ABS Monocytes 0.4 10^3/ul (0-0.8); ABS Neutrophils 2.9 10^3/ul (1.5-7.7); ABS Nucleated RBC 0 10^3/ul; Eosinophil % 1.6 % (0-6); Hematocrit 44 % (35-47); Hemoglobin 14.5 g/dl (12.0-16.0); Lymphocyte % 22.8 % (25-47); Mean Corpuscular HGB Conc 33 g/dl (31-36); Mean Corpuscular Hemoglobin 32 pg (27-31); Mean Corpuscular Volume 96 fL (80-97); Mean Platelet Volume 8.2 fL (7.4-10.4); Nucleated Red Blood Cells % 0.1; Platelet Count 134 10^3/ul (150-450); Red Blood Count 4.57 10^6/ul (4.00-5.40); Red Cell Distribution Width 14 % (10.5-15); White Blood Count 4.5 10^3/ul (3.5-10.8)
[2018-02-08 04:17] LABS: INR 2.22 (0.77-1.02)
[2018-02-08 04:34] LABS: EGFR Non-African American 64.9 (>60)
[2018-02-08] MEDS ORDERED: amLODIPine TAB* 5 MG PO ONE (05:09)
[2018-02-08 05:32] VITALS: BP 148/83
== END 2018-02-08 05:53 | disposition home or self-care (01) ==
LOC: ED 03:16
DX: F41.9 Anxiety disorder, unspecified (principal); I10 Essential (primary) hypertension; I48.91 Unspecified atrial fibrillation; Z79.01 Long term (current) use of anticoagulants; Z96.651 Presence of right artificial knee joint; Z88.8 Allergy status to other drugs, medicaments and biological substances; Z91.013 Allergy to seafood
CPT/HCPCS: 36415; 80053; 85025; 85610; 85730; 93005; 99283; A9270-GY